=== PATIENT | male | born 1955 | race Caucasian/White ===

== ENCOUNTER 2020-02-26 18:40 | Outpatient (CLI) | payer BC, SELFPAY ==
--- NOTE | 2020-02-26 18:47 | XRR_ITS ---
PROCEDURE INFORMATION: Exam: XR Right Scapula Exam date and time: 02/26/2020 7:09 PM Age: 64 years old Clinical indication: Injury or trauma; Fall; Initial encounter; Blunt trauma (contusions or hematomas; Shoulder; Bilateral TECHNIQUE: Imaging protocol: XR Right scapula, complete. COMPARISON: CR Chest 1 [place] [id number] 08/26/2018 9:29 PM FINDINGS: Bones/joints: The bones are intact and in normal alignment. Mild degenerative changes of the right acromioclavicular joint. Soft tissues: Normal. XR/[place] [id number] IMPRESSION: No acute finding.
--- NOTE | 2020-02-26 18:47 | XRR_ITS ---
PROCEDURE INFORMATION: Exam: XR Cervical Spine, 2 or 3 Views Exam date and time: 02/26/2020 7:09 PM Age: 64 years old Clinical indication: Injury or trauma; Fall; Initial encounter; Sprain or strain, cervical ligaments; Prior surgery; Surgery date: 6+ months TECHNIQUE: Imaging protocol: XR of the cervical spine, 2 or 3 views. COMPARISON: CR Cervical Spine Flex/Ext [id number] 11/03/2018 8:37 AM FINDINGS: Vertebrae: Anterior mechanical fusion of C5-C7. The vertebral body stature is intact. The facets are intact with mild degenerative changes. Soft tissues: Unremarkable. Other findings: Bilateral carotid bulb calcifications. XR/XR cervical spine 3V* [id number] IMPRESSION: 1. No fracture or acute finding. 2. Anterior C5-7 fusion.
== END 2020-02-26 18:41 | disposition home or self-care (01) ==
LOC: RAD 18:43
PROVIDERS: Visit Provider Nurse Practitioner
DX: M25.511 Pain in right shoulder (principal); W19.XXXA Unspecified fall, initial encounter
CPT/HCPCS: 72040; 73010

== ENCOUNTER 2020-03-28 20:40 | Emergency (ER) | payer BC, SELFPAY ==
[2020-03-28 20:56] VITALS: BP 213/101; PULSE 65; RESP 14; TEMP 36.1; O2SAT 97; BMI 37.9
--- NOTE | 2020-03-28 22:39 | ED_ITS ---
HPI - General Adult General: Chief complaint: General Medical Stated complaint: bp issues Time Seen by Provider: 03/28/20 22:33 Source: patient Mode of arrival: ambulatory Limitations: no limitations History of Present Illness: HPI narrative: Patient presents today with uncontrolled blood pressure. Patient took his routine medication with minimal relief of his blood pressure. Patient appears well. Patient does report headache. Patient appears well. Patient appears in mild to no pain. Associated symptoms: Reports headache(s) Review of Systems General: Reports: 10 or more systems reviewed and unremarkable except in HPI and below Neuro: Reports: headache(s) PFSH ED PFSH: Medical History (Updated 03/28/20 @ 23:45 by EMILEE Avalos) BPH (benign prostatic hyperplasia) HTN (hypertension) Hypercholesteremia Varicose veins of both lower extremities Surgical History (Updated 12/28/19 @ 11:57 by Shira Reyes MD) S/P left knee arthroscopy Family History (Updated 12/28/19 @ 10:39 by Tosin Cunningham RN) Other CAD (coronary artery disease) Cancer Social History (Updated 12/28/19 @ 10:39 by Tosin Cunningham RN) Smoking and tobacco status: never smoked Alcohol intake: never Physical Exam Const: COMMON NORMALS: no acute distress and patient oriented x3 GENERAL APPEARANCE: cooperative HENMT: COMMON NORMALS: normocephalic, TM's normal bilaterally and Normal external nose present HEAD & SCALP: normal to inspection and normocephalic NOSE: Normal external nose present TYMPANIC MEMBRANE: TM's normal bilaterally MOUTH: Normal oral and palatal mucosa present THROAT: posterior oropharynx normal Eye: GENERAL EYE: appearance normal, both eyes and all related structures Neck/C-Spine: COMMON NORMALS: full ROM Lymph: LYMPHATIC: no lymphadenopathy noted Chest: COMMONS NORMALS: normal inspection of the chest Resp: COMMON NORMALS: normal respiratory effort EFFORT & INSPECTION: Yes able to speak in complete sentences Cardio: COMMON NORMALS: regular rate and regular rhythm RATE: regular rate RHYTHM: regular rhythm GI: COMMON NORMALS: non-tender Back/Pelvis: COMMON NORMALS: thoracic and lumbar spine normal to inspection Extremity: COMMON NORMALS: normal to inspection Neuro: COMMON NORMALS: patient oriented x3 and moves all extremities Psych: COMMON NORMALS: mental status grossly normal and cooperative Skin: COMMON NORMALS: no rashes or lesions noted GENERAL SKIN EXAM: no rashes or lesions noted Course Vital Signs: Vital signs: Vital Signs Temperature 97.0 F L 03/28/20 20:56 Pulse Rate 74 03/28/20 23:30 Respiratory Rate 18 03/28/20 23:30 Blood Pressure 165/90 03/28/20 23:53 Pulse Oximetry 93 03/28/20 23:30 MDM - General Adult MDM Narrative: Medical decision making narrative: Patient comes in today with concerns of high blood pressure. Patient reports a headache. Patient denies any other chest pain or difficulty breathing. Patient appears well. Blood pressure was elevated at 213 systolic on arrival to the ER. At rest and after being in the ER 2 to 3 hours at systolic came down to 165 without intervention. Vitals signs were otherwise normal. Differential diagnosis includes but not limited to hypertension, intracranial process, electrolyte disturbance. CT of the head noted no intracranial bleed or infarct abnormality. Laboratory values were unremarkable except for some mild decrease in potassium at 3.6. Patient was given 20 meq of potassium x1. We will place patient on 0.1 mg of clonidine at bedtime for the next 2 weeks. Patient will monitor his blood pressure. Patient will follow-up with his primary care for further treatment and evaluation. Lab Data: Labs: Lab Results 03/28/20 03/28/20 Range/Units 22:30 22:30 WBC 8.2 (4.0-10.0) 10^3/ uL RBC 4.53 (4.1-5.3) 10^6/u L Hgb 13.5 (11.7-16.6) g/dL Hct 40.7 L (42.0-52.0) % MCV 89.8 (80-94) fL MCH 29.8 (28.0-34.0) pg MCHC 33.2 (30.0-36.0) g/dL RDW 12.5 (12.1-15.1) % Plt Count 192 (130-400) 10^3/c mm MPV 11.0 H (7.4-10.4) fL Neut % (Auto) 63.8 % Lymph % (Auto) 22.7 % Nance % (Auto) 9.1 % Eos % (Auto) 3.3 % Baso % (Auto) 0.6 % Neut # (Auto) 5.25 (1.8-7.7) 10^3/u L Lymph # (Auto) 1.9 (0.8-4.8) 10^3/u L Nance # (Auto) 0.8 (0.2-0.9) 10^3/u L Eos # (Auto) 0.3 (0.0-0.8) 10^3/u L Baso # (Auto) 0.1 (0.0-0.1) 10^3/u L Nucleated RBC % (a uto) 0 % Nucleated RBCs # 0.0 /100WBC Sodium 141 (136-145) mmol/L Potassium 3.6 (3.5-5.1) mmol/L Chloride 106 (98-107) mmol/L Carbon Dioxide 27 (22-29) mmol/L Anion Gap 11.6 (5-19) BUN 19 (8-23) mg/dL Creatinine 1.0 (0.7-1.2) mg/dL GFR Calculation 75.5 L (90-130) mL/min Glucose 151 H (65-115) mg/dL Calculated Osmolal ity 297 H (285-295) mOsm/k g Calcium 9.1 (8.5-10.5) mg/dL Total Bilirubin 0.3 (0.15-1.2) mg/dL AST 14 (0-40) U/L ALT 15 (0-41) U/L Alkaline Phosphata se 45 (40-130) IU/L Total Protein 6.2 L (6.6-8.7) g/dL Albumin 4.0 (3.5-5.2) g/dL Globulin 2.2 (1.3-4.6) g/dL Discharge Plan Discharge Patient Disposition: Home Clinical Impression: HTN (hypertension) Qualifiers: Hypertension type: unspecified Qualified Code(s): I10 - Essential (primary) hypertension Headache Qualifiers: Headache type: unspecified Headache chronicity pattern: unspecified pattern Intractability: not intractable Qualified Code(s): R51 - Headache Condition: Stable Prescriptions: New clonidine HCl 0.1 mg tablet 0.1 mg PO DAILY Qty: 14 RF: 0 No Action aspirin [Aspir-81] 81 mg tablet,delayed release (DR/EC) 81 mg PO DAILY RF: 0 carvedilol 25 mg tablet 12.5 mg PO BID RF: 0 furosemide 20 mg tablet 20 mg PO DAILY RF: 0 losartan 100 mg tablet 100 mg PO DAILY RF: 0 melatonin 10 mg capsule 10 mg PO DAILY RF: 0 metaxalone 800 mg tablet 800 mg PO TID RF: 0 tamsulosin 0.4 mg capsule 0.4 mg PO DAILY RF: 0 trazodone 150 mg tablet 150 mg PO DAILY RF: 0 amlodipine 10 mg tablet 10 mg PO DAILY Qty: 90 RF: 3 Discharge Orders: Discharge Order (Routine); Ordered 03/28/20 Ordered By: Ari Gillespie Referrals: Carlos Reddy NP [Primary Care Provider] - Discharge Diet: Usual diet Discharge Activity: Increase activity as tolerated Patient Instructions: Hypokalemia (ED) Activity Restrictions/Additional Instructions: Drink plenty of fluids. Continue routine medications as directed. Take clonidine at bedtime to assist with blood pressure. Follow-up with primary care for further instructions and recommendations for blood pressure control. Return to the emergency department for new concerns. 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
--- NOTE | 2020-03-28 22:39 | CTR_ITS ---
PROCEDURE INFORMATION: Exam: CT Head Without Contrast Exam date and time: 03/28/2020 10:40 PM Age: 64 years old Clinical indication: Pain; Headache; Additional info: Headache, R/O bleed TECHNIQUE: Imaging protocol: Computed tomography of the head without contrast. Radiation optimization: All CT scans at this facility use at least one of these dose optimization techniques: automated exposure control; mA and/or kV adjustment per patient size (includes targeted exams where dose is matched to clinical indication); or iterative reconstruction. COMPARISON: No relevant prior studies available. RADIATION DOSE METRICS: Total DLP (mGy-cm): 872.49 FINDINGS: Brain: Normal. No hemorrhage. Unremarkable white matter. No mass effect. Cerebral ventricles: No ventriculomegaly. Bones/joints: No acute findings. Paranasal sinuses: Visualized sinuses are unremarkable. No fluid levels. Mastoid air cells: Visualized mastoid air cells are well aerated. Soft tissues: Unremarkable. CT/CT head wo con* [id number] IMPRESSION: No acute intracranial abnormality. Radiation Dose CTDIVOL = (mGy): DLP = 872.49 (mGy-cm)
[2020-03-28 22:41] VITALS: BP 171/83; PULSE 63; RESP 18; O2SAT 96
[2020-03-28 22:53] LABS: Basophils # 0.1 10^3/uL (0.0-0.1); Basophils % 0.6 %; Eosinophils # 0.3 10^3/uL (0.0-0.8); Eosinophils % 3.3 %; Hematocrit 40.7 % (42.0-52.0); Hemoglobin 13.5 g/dL (11.7-16.6); Lymphocytes # 1.9 10^3/uL (0.8-4.8); Lymphocytes % 22.7 %; Mean Corpuscular HGB Conc 33.2 g/dL (30.0-36.0); Mean Corpuscular Hemoglobin 29.8 pg (28.0-34.0); Mean Corpuscular Volume 89.8 fL (80-94); Monocytes # 0.8 10^3/uL (0.2-0.9); Monocytes % 9.1 %; Neutrophils # 5.25 10^3/uL (1.8-7.7); Neutrophils % 63.8 %; Nucleated Red Blood Cells % 0 %; Platelet Count 192 10^3/cmm (130-400); Red Blood Count 4.53 10^6/uL (4.1-5.3); Red Cell Distribution Width 12.5 % (12.1-15.1); White Blood Count 8.2 10^3/uL (4.0-10.0)
[2020-03-28 23:00] VITALS: BP 147/78; PULSE 63; RESP 17; O2SAT 95
[2020-03-28 23:14] LABS: Alanine Aminotransferase 15 U/L (0-41); Alkaline Phosphatase 45 IU/L (40-130); Anion Gap 11.6 (5-19); Aspartate Amino Transferase 14 U/L (0-40); Blood Urea Nitrogen 19 mg/dL (8-23); Calcium 9.1 mg/dL (8.5-10.5); Carbon Dioxide 27 mmol/L (22-29); Chloride 106 mmol/L (98-107); Globulin 2.2 g/dL (1.3-4.6); Glomerular Filtration Rate 75.5 mL/min (90-130); Glucose 151 mg/dL (65-115); Osmolality Calculated 297 mOsm/kg (285-295); Potassium 3.6 mmol/L (3.5-5.1); Sodium 141 mmol/L (136-145); Total Bilirubin 0.3 mg/dL (0.15-1.2); Total Protein 6.2 g/dL (6.6-8.7)
[2020-03-28 23:30] VITALS: BP 161/91; PULSE 74; RESP 18; O2SAT 93
[2020-03-28 23:53] VITALS: BP 165/90
[2020-03-28] MEDS: cloNIDine 0.1 mg Tablet PO (23:53)
[2020-03-28] MEDS: potassium chloride ER 10 mEq Tablet 20 MEQ PO (23:54)
[2020-03-29] VITALS: BP 165/90; PULSE 61; RESP 17; TEMP 36.1; O2SAT 92
== END 2020-03-29 | disposition home or self-care (01) ==
PROVIDERS: Emergency Provider Nurse Practitioner Family; PCP Nurse Practitioner Family
DX: I10 Essential (primary) hypertension (principal); R51 Headache; Z79.82 Long term (current) use of aspirin
CPT/HCPCS: 12345; 70450; 80053; 85025; 99283

== ENCOUNTER → 2020-10-10 08:17 | Outpatient (BNVA) | payer BC, SELFPAY | PROVIDERS: PCP Nurse Practitioner Family; Referring Provider Nurse Practitioner Family; Visit Provider Specialist | DX: M25.552 Pain in left hip (principal); M25.551 Pain in right hip | CPT/HCPCS: 73522; 73523 ==

== ENCOUNTER → 2020-10-25 08:49 | Outpatient (BNVA) | payer BC, SELFPAY | PROVIDERS: PCP Nurse Practitioner Family; Visit Provider Orthopaedic Surgery | DX: M54.9 Dorsalgia, unspecified (principal); M43.16 Spondylolisthesis, lumbar region; M48.062 Spinal stenosis, lumbar region with neurogenic claudication | CPT/HCPCS: 72110 ==

== ENCOUNTER 2020-11-14 13:09 | Outpatient (CLI) | payer BC, SELFPAY ==
--- NOTE | 2020-11-14 13:45 | MR_ITS ---
WS: [id number] MRI LUMBAR SPINE NONCONTRAST TECHNIQUE: Sagittal T1, T2 and STIR imaging. Axial T1 and T2 imaging. CLINICAL INFORMATION: M43.16 - Spondylolisthesis, lumbar region COMPARISON: None. FINDINGS: Mild lumbar curve. No acute compression. Chronic anterior wedging in the lower thoracic spine. L1-L2: Slight narrowing of the right subarticular recess. Mild facet arthropathy. Spinal canal and fo ramen are patent. L2-L3: No significant disc bulging. Moderate facet arthropathy. Spinal canal and foramen are patent. L3-L4: Mild annular bulging. Slight effacement of ventral thecal sac. Slight narrowing of the right s ubarticular recess. Foramen are patent. Mild facet arthropathy. L4-L5: Mild annular bulging with mild central canal stenosis. Moderate facet arthropathy and ligament um flavum hypertrophy. Slight narrowing of the subarticular recess bilaterally. Mild bilateral forami nal narrowing. L5-S1: Mild disc bulging with osteophytic ridging. Slight effacement of ventral thecal sac. Moderate to advanced arthropathy. Spinal canal and foramen are patent. Visualized pelvic bony structures: Normal. Paravertebral soft tissues: Normal. MR/MR lumbar spine wo con* [id number] IMPRESSION: 1. Mild lumbar curve. No acute compression. No high-grade central canal stenos is. 2. Mild central canal stenosis L4-5 due to disc bulging with facet arthropathy and ligamentum flavum hypertrophy. Narrowing of the subarticular recess bilate rally. 3. Mild bilateral L4-5 foraminal narrowing. 4. Moderate facet arthropathy L4-L5 and L5-S1.
== END 2020-11-14 13:10 | disposition home or self-care (01) ==
PROVIDERS: PCP Nurse Practitioner Family; Visit Provider Orthopaedic Surgery
DX: M43.16 Spondylolisthesis, lumbar region (principal); M48.061 Spinal stenosis, lumbar region without neurogenic claudication; M47.816 Spondylosis without myelopathy or radiculopathy, lumbar region; M47.817 Spondylosis without myelopathy or radiculopathy, lumbosacral region
CPT/HCPCS: 72148

== ENCOUNTER → 2020-11-23 08:14 | Outpatient (BNVA) | payer BC, SELFPAY | PROVIDERS: PCP Nurse Practitioner Family; Visit Provider Anesthesiology Pain Medicine | DX: M48.062 Spinal stenosis, lumbar region with neurogenic claudication (principal); Z79.891 Long term (current) use of opiate analgesic | CPT/HCPCS: 99204 ==

== ENCOUNTER 2020-11-27 10:19 | Emergency (ER) | payer BC, SELFPAY ==
[2020-11-27 10:35] VITALS: BP 137/69; PULSE 65; RESP 14; TEMP 36.8; O2SAT 96; BMI 38.7
--- NOTE | 2020-11-27 10:50 | CTR_ITS ---
PROCEDURE INFORMATION: Exam: CT Neck With Contrast Exam date and time: 11/27/2020 11:15 AM Age: 65 years old Clinical indication: Neck pain and painful swallowing; Additional info: Right neck pain and swelling, difficulty swallowing TECHNIQUE: Imaging protocol: Computed tomography images of the neck with contrast. Radiation optimization: All CT scans at this facility use at least one of these dose optimization techniques: automated exposure control; mA and/or kV adjustment per patient size (includes targeted exams where dose is matched to clinical indication); or iterative reconstruction. Contrast material: OMNIPAQUE 300; Contrast volume: 95 ml; Contrast route: INTRAVENOUS (IV); COMPARISON: MRI Cervical Spine w/o* [id number] 11/03/2018 7:59 AM RADIATION DOSE METRICS: Total DLP (mGy-cm): 579.08 FINDINGS: Nasopharynx: Unremarkable. Dental: Examination is limited secondary to metallic artifact from dental fillings and/or dental hardware. Oropharynx: Unremarkable. No significant tonsillar enlargement. Hypopharynx: Unremarkable. Larynx: Unremarkable. Normal epiglottis. Retropharyngeal space: Unremarkable. Submandibular/Parotid glands: Normal. Glands are normal in size. Thyroid: 2.3 cm isthmus thyroid nodule with recommendation for nonemergent thyroid ultrasound to rule out neoplasm. Lymph nodes: Unremarkable. No lymphadenopathy. Trachea: Visualized trachea is unremarkable. Lungs: Unremarkable as visualized. Bones/joints: Interval removal of the central portion of the C6 vertebral body with placement of metallic stent in addition to anterior metallic fixation of C5, C6 and C7. Vasculature: There is direct origin of the left vertebral artery from the aortic arch which is a normal variant seen in 1% of the population. Soft tissues: Unremarkable. No significant soft tissue swelling. Other findings: Dextroscoliosis. CT/CT neck w con* [id number] IMPRESSION: 1. Dextroscoliosis. 2. Interval removal of the central portion of the C6 vertebral body with placement of metallic stent in addition to anterior metallic fixation of C5, C6 and C7. 3. 2.3 cm isthmus thyroid nodule with recommendation for nonemergent thyroid ultrasound to rule out neoplasm. COMMENTS: Consistent with the [employer]'s Incidental Findings Committee white paper (J Am Keon Radiol 2015): In patients aged 35 years and older with an incidental thyroid nodule equal to or greater than 1.[address], MRI or extrathyroidal US, further evaluation with dedicated thyroid US is recommended for patients with normal life expectancy and without comorbidities. For smaller nodules without suspicious features, no further evaluation or follow up is recommended. Radiation Dose CTDIVOL = (mGy): DLP = 579.08 (mGy-cm)
--- NOTE | 2020-11-27 11:07 | ED_ITS ---
HPI - General Adult General: Chief complaint: General Medical Stated complaint: trouble swallowing *3 weeks Time Seen by Provider: 11/27/20 10:39 History of Present Illness: HPI narrative: Patient with difficulty swallowing and right-sided neck pain that has been chronic for several months but worsening over the past 3 weeks. States it feels like sometimes he is able to swallow his food but it is all up in his neck, and always on the right side. Associated symptoms: Deny chest pain, dyspnea, headache(s) or rash Review of Systems Const: Denies: fever(s) Eyes: Denies: change in vision ENMT: Reports: throat pain and odynophagia Card: Denies: chest pain Resp: Denies: dyspnea GI: Reports: dysphagia; Denies: abdominal pain : Denies: flank pain Musc: Reports: neck pain (Right-sided anterior neck pain but only with swallowing) Skin/Breast: Denies: rash Neuro: Denies: headache(s) Psych: Denies: anxiety PFSH ED PFSH: Medical History BPH (benign prostatic hyperplasia) HTN (hypertension) Hypercholesteremia Varicose veins of both lower extremities Surgical History S/P left knee arthroscopy Family History Other CAD (coronary artery disease) Cancer Social History Smoking and tobacco status: never smoked Alcohol intake: never Physical Exam HENMT: COMMON NORMALS: normocephalic and Normal external nose present HEAD & SCALP: normal to inspection and normocephalic FACE & SINUS: normal facial exam NOSE: Normal external nose present MOUTH: Normal oral and palatal mucosa present, lip normal and tongue normal THROAT: posterior oropharynx normal, tonsils normal and uvula midline Neck/C-Spine: COMMON NORMALS: full ROM, no lymphadenopathy, no meningeal signs and No carotid bruits GENERAL: Yes normal visual inspection Neuro: MENINGEAL SIGNS: Yes no meningeal signs Course Vital Signs: Vital signs: Vital Signs Temperature 98.2 F 11/27/20 10:35 Pulse Rate 60 11/27/20 11:44 Respiratory Rate 14 11/27/20 10:35 Blood Pressure 121/65 11/27/20 11:44 Pulse Oximetry 94 11/27/20 11:44 MDM - General Adult MDM Narrative: Medical decision making narrative: Patient with a large thyroid mass or nodule. Will have patient follow-up with ENT for further evaluation and treatment. Lab Data: Labs: Lab Results 11/27/20 11/27/20 Range/Units 11:25 11:25 WBC 7.3 (4.0-10.0) 10^3/ uL RBC 4.64 (4.1-5.3) 10^6/u L Hgb 14.0 (11.7-16.6) g/dL Hct 41.8 L (42.0-52.0) % MCV 90.1 (80-94) fL MCH 30.2 (28.0-34.0) pg MCHC 33.5 (30.0-36.0) g/dL RDW 12.3 (12.1-15.1) % Plt Count 183 (130-400) 10^3/c mm MPV 11.1 H (7.4-10.4) fL Neut % (Auto) 68.7 % Lymph % (Auto) 18.8 % Giles % (Auto) 7.0 % Eos % (Auto) 4.0 % Baso % (Auto) 0.8 % Neut # (Auto) 5.02 (1.8-7.7) 10^3/u L Lymph # (Auto) 1.4 (0.8-4.8) 10^3/u L Giles # (Auto) 0.5 (0.2-0.9) 10^3/u L Eos # (Auto) 0.3 (0.0-0.8) 10^3/u L Baso # (Auto) 0.1 (0.0-0.1) 10^3/u L Nucleated RBC % (a uto) 0 % Nucleated RBCs # 0.0 /100WBC Sodium 141 (136-145) mmol/L Potassium 3.8 (3.5-5.1) mmol/L Chloride 106 (98-107) mmol/L Carbon Dioxide 27 (22-29) mmol/L Anion Gap 11.8 (5-19) BUN 17 (8-23) mg/dL Creatinine 0.9 (0.7-1.2) mg/dL GFR Calculation 85.0 L (90-130) mL/min Glucose 124 H (65-115) mg/dL Calculated Osmolal ity 295 (285-295) mOsm/k g Calcium 8.4 L (8.5-10.5) mg/dL Discharge Plan Discharge Condition: Stable Prescriptions: No Action tramadol 50 mg tablet 50 mg PO DAILY RF: 0 buspirone 15 mg tablet 15 mg PO BID RF: 0 clonidine HCl 0.2 mg tablet 0.2 mg PO BID RF: 0 oxycodone-acetaminophen 5-325 mg tablet 1 tab PO Q8H PRNRF: 0 aspirin [Aspir-81] 81 mg tablet,delayed release (DR/EC) 81 mg PO DAILY RF: 0 carvedilol 25 mg tablet 12.5 mg PO BID RF: 0 furosemide 20 mg tablet 20 mg PO DAILY RF: 0 losartan 100 mg tablet 100 mg PO DAILY RF: 0 melatonin 10 mg capsule 10 mg PO DAILY RF: 0 tamsulosin 0.4 mg capsule 0.4 mg PO DAILY RF: 0 trazodone 150 mg tablet 150 mg PO DAILY RF: 0 potassium chloride 10 mEq capsule, extended release 10 meq PO DAILY RF: 0 ropinirole 2 mg tablet 2 mg PO DAILY RF: 0 cyclobenzaprine 10 mg tablet 10 mg PO TID RF: 0 amlodipine 10 mg tablet 10 mg PO DAILY Qty: 90 RF: 3 clonidine HCl 0.1 mg tablet 0.1 mg PO DAILY Qty: 14 RF: 0 Discharge Orders: Discharge ED (Routine); Ordered 11/27/20 Ordered By: Hugh Jones Referrals: Benigno Goldberg MD [Physician] - 4-7 days Carlos Reddy NP [Primary Care Provider] - Discharge Diet: Advance as tolerated Discharge Activity: Resume usual activity Activity Restrictions/Additional Instructions: Follow-up with ENT for further evaluation of thyroid mass Coding Level of Care Code ED Head Turning 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
[2020-11-27 11:34] LABS: Basophils # 0.1 10^3/uL (0.0-0.1); Basophils % 0.8 %; Eosinophils # 0.3 10^3/uL (0.0-0.8); Hematocrit 41.8 % (42.0-52.0); Lymphocytes # 1.4 10^3/uL (0.8-4.8); Lymphocytes % 18.8 %; Mean Corpuscular HGB Conc 33.5 g/dL (30.0-36.0); Mean Corpuscular Hemoglobin 30.2 pg (28.0-34.0); Mean Corpuscular Volume 90.1 fL (80-94); Mean Platelet Volume 11.1 fL (7.4-10.4); Monocytes # 0.5 10^3/uL (0.2-0.9); Neutrophils # 5.02 10^3/uL (1.8-7.7); Neutrophils % 68.7 %; Nucleated Red Blood Cells % 0 %; Platelet Count 183 10^3/cmm (130-400); Red Blood Count 4.64 10^6/uL (4.1-5.3); Red Cell Distribution Width 12.3 % (12.1-15.1); White Blood Count 7.3 10^3/uL (4.0-10.0)
[2020-11-27 11:44] VITALS: BP 121/65; PULSE 60; O2SAT 94
[2020-11-27 11:55] LABS: Anion Gap 11.8 (5-19); Blood Urea Nitrogen 17 mg/dL (8-23); Calcium 8.4 mg/dL (8.5-10.5); Carbon Dioxide 27 mmol/L (22-29); Chloride 106 mmol/L (98-107); Glucose 124 mg/dL (65-115); Osmolality Calculated 295 mOsm/kg (285-295); Potassium 3.8 mmol/L (3.5-5.1); Sodium 141 mmol/L (136-145)
[2020-11-27] MEDS: iohexol 300 mg/mL 100 mL Btl IV (12:20)
[2020-11-27 13:56] VITALS: BP 124/84; PULSE 61; O2SAT 97
[2020-11-27 15:00] VITALS: BP 148/80; PULSE 66; RESP 18; O2SAT 99
== END 2020-11-27 15:02 | disposition home or self-care (01) ==
PROVIDERS: Emergency Provider Emergency Medicine; PCP Nurse Practitioner Family
DX: R13.10 Dysphagia, unspecified (principal); Z79.82 Long term (current) use of aspirin; I10 Essential (primary) hypertension
CPT/HCPCS: 70491; 80048; 85025; 99283; Q9967

== ENCOUNTER → 2020-11-30 13:03 | Outpatient (BNVA) | payer BC, SELFPAY | PROVIDERS: PCP Nurse Practitioner Family; Visit Provider Anesthesiology Pain Medicine | DX: M47.816 Spondylosis without myelopathy or radiculopathy, lumbar region (principal); M48.062 Spinal stenosis, lumbar region with neurogenic claudication; Z79.891 Long term (current) use of opiate analgesic | CPT/HCPCS: 64493; 64494; 64495; J3490 ==

== ENCOUNTER 2020-12-06 15:49 | Outpatient (CLI) | payer BC, SELFPAY ==
[2020-12-06 16:42] LABS: Free T4 Free Thyroxine 1.09 ng/dL (0.82-1.77); Thyroid Stimulating Hormone 2.78 uIU/mL (0.27-4.20)
== END 2020-12-06 15:50 | disposition home or self-care (01) ==
PROVIDERS: PCP Nurse Practitioner Family; Visit Provider Specialist
DX: E04.1 Nontoxic single thyroid nodule (principal)
CPT/HCPCS: 84439; 84443

== ENCOUNTER 2020-12-16 09:14 | Outpatient (CLI) | payer BC, SELFPAY ==
--- NOTE | 2020-12-16 09:21 | FL_ITS ---
WS: [id number] Exam: FL barium swallow [id number] Date/Time of Exam: 12/16/2020 9:21 AM Reason For Exam: DYSPHAGIA Fluoroscopy time: 1.2 minutes Swallowing function was normal. There was no sign of aspiration. The esophagus is smooth in contour. No evidence of esophageal stricture or mass. Motility was normal. No hiatal hernia or gastroesophagea l reflux identified during fluoroscopy. The esophagus is not displaced. FL/FL barium swallow [id number] IMPRESSION: 1. Unremarkable barium esophagram. No mass, stricture or other significant find ing.
== END 2020-12-16 09:15 | disposition home or self-care (01) ==
LOC: RAD 09:17
PROVIDERS: PCP Nurse Practitioner Family; Visit Provider Specialist
DX: E04.1 Nontoxic single thyroid nodule (principal); R13.10 Dysphagia, unspecified
CPT/HCPCS: 74220

== ENCOUNTER → 2020-12-26 15:50 | Outpatient (BNVA) | payer BC, SELFPAY | PROVIDERS: PCP Nurse Practitioner Family; Visit Provider Orthopaedic Surgery | DX: Z01.818 Encounter for other preprocedural examination (principal) | CPT/HCPCS: 87635 ==

== ENCOUNTER 2020-12-30 11:24 | Day surgery (SDC) | payer BC, SELFPAY ==
[2020-12-29 15:15] VITALS: BMI 40.1
--- NOTE | 2020-12-30 | SCC_ITS ---
Procedure Done: Laminectomy with bilateral L4/5 partial facetectomies 10.6 seconds of fluoroscopic guidance, for a cumulative dose of 5.96 mGy, was provided to Dr. Lowery by the radiology department. C-arm images of the lumbar spine were saved for the patient's permanent record. MARY
[2020-12-30 12:16] VITALS: BP 154/79; PULSE 60; RESP 18; TEMP 36.4; O2SAT 100
[2020-12-30] MEDS: sodium chloride 0.9% 1,000 ML 30 ML IV (13:30)
--- NOTE | 2020-12-30 15:21 | ANES.PREANE2 ---
Pre-Anesthetic Assessment Pre-Anesthetic Assessment: Height/Weight: Height 1.78 m Weight 127.006 kg Temp Pulse Resp BP Pulse Ox 97.5 F L 60 18 154/79 100 12/30/20 12:16 12/30/20 12:16 12/30/20 12:16 12/30/20 12:16 12/30/20 12:16 Preop Diagnosis: lumbar stenosis Proposed Procedure: Operation Date: 12/30/20 13:20 Proposed Procedures p right L 4/5 MIS decompression [id number] M48.062(Right) - Manny Lowery, DO Was Beta Esme taken within 24 hours: Yes Was Clonidine taken within 24 hours: N/A Last intake: Intake Last Liquid Date 12/29/20 Last Liquid Time 22:00 Last Solid Date 12/29/20 Last Solid Time 22:00 Social: Social History: No alcohol and No tobacco Exam: Pre-Anes Outpt Exam: alert, oriented x 3, clear to auscultation bilaterally and regular rate & rhythm Airway: Submandibular: WNL Cervical ROM: WNL MP: 2 Dentition: Partials CV/HEM: CV/HEM: HTN Metabolic: Metabolic: Hyperlipidemia and Morbid obesity Musc/skel: Musc/skel: Lower Back Pain Anesthetic Plan: ASA status: 3 Anesthesia: General Risk of > 500 ml blood loss (7ml/kg in children): No PFSH Anesthesia PFSH: Medical History BPH (benign prostatic hyperplasia) HTN (hypertension) Hypercholesteremia Varicose veins of both lower extremities Surgical History S/P left knee arthroscopy Family History Other CAD (coronary artery disease) Cancer Social History Smoking and tobacco status: never smoked Alcohol intake: never Data Anesthesia Cardiac Studies: No Data to Display
--- NOTE | 2020-12-30 15:56 | W.PM.OPSUD ---
Surgery/Procedure H&P Update DATE OF PROCEDURE: December 30, 2020 DATE H&P PERFORMED: 12/13/20 H&P UPDATE INFORMATION: I have reviewed H&P completed within last 30 days, I have examined patient prior to procedure and No changes to prior documentation PREOP DIAGNOSIS: lumbar stenosis PLANNED PROCEDURE: Operation Date: 12/30/20 13:20 Proposed Procedures p right L 4/5 MIS decompression 30843 M48.062(Right) - Manny Lowery DO
--- NOTE | 2020-12-30 18:04 | P.OP_ITS ---
Operative Report Date of procedure: December 30, 2020 Pre-op Diagnosis: lumbar stenosis Post-op diagnosis: same Procedure Done: Laminectomy with bilateral L4/5 partial facetectomies Surgeon: Manny Lowery Anesthesia: General Estimated blood loss (mL): 10 Condition: stable Disposition: PACU Procedure: Laminectomy with bilateral L4/5 partial facetectomies Patient is brought to the operative suite. After undergoing anesthesia they are placed in the supine position. All areas of impingement are well padded. Patient is then prepped and draped in the normal sterile fashion. A skin incision is made over the L4/5 level. This is confirmed under c-arm guidance. A series of dilators are passed and the tubular retractor is docked on the L4 lamina. A bovie is used to clear the soft tissue off the lamina and the L 4/5 facet joint. A high speed maranda is then used to perform the laminectomy and take down the medial aspect of the L 4/5 facet joint. A kerrison rongeure was then used to take down the remaining lamina and smooth the edged of the laminectomy up to the point where the ligamentum flavum attaches. Attention was then brought to the medial aspect of the facet joint. The remaining medial aspect of the superior and inferior aspect of the facet joint were taken down with the kerrison from the pedicle of L4 to L 5. The facet joint had significant hypertrophy. Attention was then brought to the Ligamentum Flavum. The ligament was taken down from the lamina of L4 to L5 and out medially to the remaining facet joint. The ligament was thickened. The dura was then exposed. The dura was in good repair. The L4 nerve was then traced with a curette out the L4/5 foramen and found to be adequately decompressed. The L5 nerve was traced with a curette around the L5 pedicle. The lateral recess was opened with a kerrison helping to further decompress the L5 nerve. The tubular retractor was then tilted to the contralateral side. The bovie was used to take down the soft tissue on the spinous process. The high speed maranda was used to take down the spinous process and then the contralateral lamina of L4. The kerrison rongeur was used to take down the remaining lamina to the point where the ligamentum flavum attached and the ligamentum flavum was taken d own from L4 to L5. The kerrison rongeur was then used to reach across and take down the medial aspect of the contralateral L4/5 facet joint.The currete was used to trace the contralateral L4/5 nerve out the L4 foramen to make sure it was decompressed adequatesly and the L5 was traced around the L5 pedicle. The lateral recess was opened further with the kerrison to ensure the L5 is adequately decompressed. Wound is then irrigated copiously with saline and surgiflo is used to stop any bleeding. The tubular retractor is removed and the wound is closed with vicryl and monocryl suture. Glue is then used to protect the wound. A sterile dressing is then placed. Patient was then placed in the supine position and transferred to the PACU in stable condition.
--- NOTE | 2020-12-30 18:06 | XR_ITS ---
WS: [id number] C-ARM RADIOGRAPHS LUMBAR SPINE; 2 IMAGES HISTORY: OR PICS COMPARISON: 10/25/2020 Intraoperative imaging for posterior fusion. Marker indicator at the L4-5 disc level. XR/XR lumbar spine 1V [id number] IMPRESSION: Intraoperative imaging during posterior lumbar fusion.
[2020-12-30 18:16] VITALS: BP 123/75; PULSE 61; RESP 20; TEMP 36.4; O2SAT 99
[2020-12-30 18:20] VITALS: BP 156/77; PULSE 59; RESP 16; O2SAT 97
[2020-12-30 18:25] VITALS: BP 154/81; PULSE 62; RESP 18; TEMP 36.5; O2SAT 96
[2020-12-30 18:30] VITALS: BP 147/74; PULSE 56; RESP 18; TEMP 36.1; O2SAT 98
[2020-12-30 18:59] VITALS: BP 159/80; PULSE 59; RESP 18; O2SAT 98
--- NOTE | 2020-12-31 02:24 | ANE.PACU2 ---
Inpatient post-anesthesia follow up: Airway intact: Yes Vital signs: Temperature 97 F Pulse Rate 59 Respiratory Rate 18 Blood Pressure 159/80 Pulse Oximetry 98 Oxygen Delivery Me thod Room Air Oxygen Flow Rate 8 Fraction of Inspir ed Oxygen Hydration adequate: Yes Nausea and vomiting: No Pain level: 3 Mental status: Baseline
== END 2020-12-30 19:05 | disposition home or self-care (01) ==
PROVIDERS: PCP Nurse Practitioner Family; Visit Provider Orthopaedic Surgery
PROC: (CPT 63005; principal; 2020-12-30 13:10)
DX: M48.061 Spinal stenosis, lumbar region without neurogenic claudication (principal); I10 Essential (primary) hypertension; E78.5 Hyperlipidemia, unspecified; E66.01 Morbid (severe) obesity due to excess calories; Z68.41 Body mass index [BMI] 40.0-44.9, adult; N40.0 Benign prostatic hyperplasia without lower urinary tract symptoms; E78.00 Pure hypercholesterolemia, unspecified
CPT/HCPCS: 63047; 72020; 76000; J0690; J1100; J2405; J2704; J2710; J3010; J3490; J7030

== ENCOUNTER → 2021-01-26 16:07 | Outpatient (BNVA) | payer BC, SELFPAY | PROVIDERS: PCP Nurse Practitioner Family; Visit Provider Specialist | DX: Z01.812 Encounter for preprocedural laboratory examination (principal); Z20.822 Contact with and (suspected) exposure to COVID-19 | CPT/HCPCS: 87635 ==

== ENCOUNTER 2021-02-03 16:37 | Observation (INO) | payer BC, SELFPAY ==
[2021-02-02 14:27] VITALS: BMI 39.4
[2021-02-03] VITALS (29 sets, daily range): BP systolic 146–193; BP diastolic 74–118; PULSE 53–83; RESP 8–30; TEMP 36.2–37.2; O2SAT 93–100
--- NOTE | 2021-02-03 10:47 | ANES.PREANE2 ---
Pre-Anesthetic Assessment Pre-Anesthetic Assessment: Height/Weight: Height 1.78 m Weight 124.738 kg Temp Pulse Resp BP Pulse Ox 99 F 65 18 177/81 98 02/03/21 10:15 02/03/21 10:15 02/03/21 10:15 02/03/21 10:15 02/03/21 10:15 Preop Diagnosis: lumbar stenosis Proposed Procedure: Operation Date: 02/03/21 11:00 Proposed Procedures p Partial or Total Thyroidectomy 27267 52501 58486 E04.1(Not Applicable) - Benigno Goldberg MD Familial anesthetic complications: None Was Beta Esme taken within 24 hours: Yes Was Clonidine taken within 24 hours: N/A Last intake: Intake Last Liquid Date 02/02/21 Last Liquid Time 18:30 Last Solid Date 02/02/21 Last Solid Time 18:00 Social: Social History: No alcohol and No tobacco Exam: Pre-Anes Outpt Exam: alert, oriented x 3, clear to auscultation bilaterally and regular rate & rhythm Airway: Cervical ROM: WNL MP: 2 Dentition: Partials Pulmonary: Pulmonary: Sleep apnea CV/HEM: CV/HEM: HTN Metabolic: Metabolic: Hyperlipidemia and Morbid obesity Anesthetic Plan: ASA status: 3 Anesthesia: General Risk of > 500 ml blood loss (7ml/kg in children): No PFSH Anesthesia PFSH: Medical History BPH (benign prostatic hyperplasia) HTN (hypertension) Hypercholesteremia Varicose veins of both lower extremities Surgical History S/P left knee arthroscopy Family History Other CAD (coronary artery disease) Cancer Social History Smoking and tobacco status: never smoked Alcohol intake: never Data Anesthesia CBC & Chem 7: 02/03/21 10:35 Cardiac Studies: No Data to Display
[2021-02-03] MEDS: sodium chloride 0.9% 1,000 ML 30 ML IV (10:48)
--- NOTE | 2021-02-03 10:59 | W.PM.OPSUD ---
Surgery/Procedure H&P Update DATE OF PROCEDURE: February 03, 2021 DATE H&P PERFORMED: 01/09/21 H&P UPDATE INFORMATION: I have reviewed H&P completed within last 30 days, I have examined patient prior to procedure and No changes to prior documentation PREOP DIAGNOSIS: Thyroid Nodule with suspicious FNA biopsy PLANNED PROCEDURE: Operation Date: 02/03/21 11:00 Proposed Procedures p Partial or Total Thyroidectomy 21044 38660 46873 E04.1(Not Applicable) - Benigno Goldberg MD
[2021-02-03 11:10] LABS: Anion Gap 11.8 (5-19); Blood Urea Nitrogen 12 mg/dL (8-23); Calcium 8.5 mg/dL (8.5-10.5); Carbon Dioxide 25 mmol/L (22-29); Chloride 107 mmol/L (98-107); Glucose 90 mg/dL (65-115); Osmolality Calculated 289 mOsm/kg (285-295); Potassium 3.8 mmol/L (3.5-5.1); Sodium 140 mmol/L (136-145)
[2021-02-03] MEDS: ceFAZolin 1,000 mg SDV 1000 MG IRRIGATION (12:14)
[2021-02-03] MEDS: EPINEPHrine 1 mg/mL INJ XX (12:14)
[2021-02-03] MEDS: fluorescein 1 mg Strip XX (12:16)
[2021-02-03] MEDS: neomycin-poly-bacitracin oint 28 gm 28 APPLIC (12:16)
--- NOTE | 2021-02-03 12:22 | SUR.OPER ---
Called and notified of surgical start and progress
--- NOTE | 2021-02-03 12:40 | SUR.OPER ---
Updated on surgical progress.
[2021-02-03] MEDS: EPINEPHrine 1 mg/mL INJ (13:02)
[2021-02-03] MEDS: thrombin 5,000 unit SDV 5000 UNIT (13:03)
--- NOTE | 2021-02-03 14:15 | P.OP_ITS ---
Operative Report Date of procedure: February 03, 2021 Pre-op Diagnosis: Thyroid Isthmus Nodule with suspicious FNA biopsy Post-op diagnosis: same Post-op Findings: Extensive post surgical changes of the anterior neck centered on the left tracheoesophageal groove Large thyroid isthmus mass Unable to stimulate the left vagus nerve O/W normal anterior neck exam Procedure Done: Partial thyroidectomy with excision of a thyroid isthmus mass Implants: None Specimens removed/disposition: Thyroid isthmus mass Pathology: other Pathology: Thyroid isthmus mass Surgeon: Benigno Goldberg Community Assistant: Zully Broderick Anesthesia: General Estimated blood loss (mL): 25 IV fluids (mL): 1,000 Urine output (mL): 100 Complications: None Findings: Extensive post surgical changes and scarring of the left anterior neck centered on the left tracheoesophageal groove Large thyroid isthmus mass Unable to stimulate left vagus nerve O/W normal anterior neck exam Condition: stable Disposition: PACU Brief History: 65 yo wm with a h/o a large thyroid isthmus mass with an FNA biopsy suspicious for malignancy. The patient desires surgical therapy. Procedure: The patient was identified in the preoperative holding area was taken to the operating room where he was placed on the operating table in the supine position. Anesthesia was obtained with general endotracheal anesthesia after placing a Nirvana nerve monitoring electrode on the endotracheal tube. The glide scope was used to confirm placement of the electrode. The patient had a well-healed incision of the anterior neck that was injected with local anesthesia. The patient was then prepped and draped in the usual sterile fashion. The incision was made in the anterior neck with a 15 blade and the dissection proceeded down through the subcutaneous tissues with electrocautery. The Nirvana nerve monitoring hemostat was then used to dissected in the midline until the trachea was encountered both visually and to palpation there was a large thyroid isthmus mass that was identified by palpation overlying the lower portion of the trachea and the surgical field. At this point an inspection was carried out of the patient's surgcial field - the patient had extensive scarring, and the lateral border of the thyroid isthmus mass was indistinct. At this point an attempt was made to dissect the left thyroid lobe by dissecting in to the area of the carotid sheath. The nerve monitoring hemostat was used to probe the left carotid sheath for a positive signal. Despite significant probing and repositioning of the nerve monitoring system, no nerve monitor signal was obtained. At this point I elected to abandon the attempt and proceeded with a thyroid isthmusectomy as this was a safer option given the level of scarring in the left neck and the lack of signal on the left. The tracheoesophageal groove was left undisturbed on the left and the thyroid isthmus was divided on either side of the mass with Daysi clamps, and a #15 blade. At this point the stump of the thyroid isthmus was oversewn with a Vicryl baseball stitch and the harmonic scalpel was used the remove the thyroid isthmus mass. After removal, the mass appeared to be intact without violation of its borders. At this point the wound was irrigated with a copious amount normal saline and hemostasis was achieved with bipolar cautery. Gelfoam soaked in thrombin was then placed in the wound and the wound was dusted with a light coating of Mary. At this point a small drain was placed in the wound, and the wound was closed in layers with 4-0 and 5-0 Monocryl sutures in the subcu and Dermabond and Steri-Strips on the skin. At this point the procedure was terminated and control of the patient was returned to anesthesia where he underwent an uneventful reversal of anesthesia and extubation and was taken to the recovery room in stable condition. There were no operative or anesthetic complications.
[2021-02-03] MEDS: triamcinolone 40 mg/mL SDV IM (14:18)
--- NOTE | 2021-02-03 14:54 | ANE.PACU2 ---
Inpatient post-anesthesia follow up: Airway intact: Yes Vital signs: Temperature 97.7 F Pulse Rate 67 Respiratory Rate 14 Blood Pressure 159/85 Pulse Oximetry 94 Oxygen Delivery Me thod Room Air Oxygen Flow Rate 8 Fraction of Inspir ed Oxygen Hydration adequate: Yes Nausea and vomiting: No Pain level: 2 Mental status: Baseline
[2021-02-03] MEDS: fentaNYL 50 mcg/mL INJ 2mL IVP ×2 (15:40→17:00)
[2021-02-03] MEDS: carvedilol 12.5 mg Tablet PO (17:15)
--- NOTE | 2021-02-03 17:49 | PM.PN ---
Subjective Subjective: Interval history: 65 yo wm who is night of surgery s/p partial thyroidectomy/isthumusectomy for a thyroid isthmus nodule with a suspicious FNA biopsy. The patient reports that he is doing well, and has no other c/o. Vitals/I&O/Wt Last Vital Signs Temp 97.7 F 02/03/21 14:40 Pulse 67 02/03/21 14:40 Resp 18 02/03/21 17:00 BP 159/85 02/03/21 14:40 Pulse Ox 97 02/03/21 17:00 02/03/21 02/03/21 02/03/21 06:59 14:59 22:59 Intake Total 1060 / 1060 Output Total 225 / 225 35 / 260 Balance 835 / 835 -35 / 800 Weight last 48 hrs Weight 124.738 kg Physical Exam Const: COMMON NORMALS: no acute distress and patient oriented x3 Eye: COMMON NORMALS: Equal, round and reactive pupils present, EOMs intact bilaterally and conjunctivae normal CONJUNCTIVA: Yes conjunctivae normal PUPIL: Yes Equal, round and reactive pupils present Neck/C-Spine: COMMON NORMALS: full ROM, no lymphadenopathy and Thyroid normal (The thyroid incision is intact and without swelling.) GENERAL: Yes lymphadenopathy THYROID: Thyroid normal (The thyroid incision is intact and without swelling.) Chest: COMMONS NORMALS: normal inspection of the chest Cardio: COMMON NORMALS: regular rate and regular rhythm RATE: regular rate RHYTHM: regular rhythm Neuro: COMMON NORMALS: patient oriented x3 Urinary Catheter Management^: Rose: Cath Placed During This Visit: yes, but has since been removed by the nurse Urinary Catheter Date of Insertion: 02/03/21 Urinary Catheter Time of Insertion: 11:30 Date Urinary Catheter Removed: 02/03/21 Time Urinary Catheter Discontinued: 14:01 Data : 02/03/21 10:35 A&P Additional A&P Information Impression: 65 yo wm who is night of surgery s/p partial thyroidectomy doing well with normal post operative voice. Plan: - ICU observation overnight - ERIBERTO drain - Pain control - Anticipate d/c in the am if everything goes well Attestations Medical Necessity Statement*: The patient requires overnight observation of his airway. Coding Level of Care Code Acute Patient Service Associate for Lion Britt
[2021-02-03] MEDS: docusate sodium 100 mg Capsule PO (18:36)
[2021-02-03] MEDS: famotidine 20 mg/2 mL INJ IVP (18:36)
[2021-02-03] MEDS: BuSPIRONE 10 mg Tablet 15 MG PO (18:36)
[2021-02-03] MEDS: oxyCODONE-APAP 5-325 mg Tablet 1 TAB PO (21:20)
[2021-02-03] MEDS: cloNIDine 0.1 mg Tablet 0.2 MG PO (21:20)
[2021-02-04] VITALS (11 sets, daily range): BP systolic 130–201; BP diastolic 69–90; PULSE 58–68; RESP 13–17; TEMP 37.1; O2SAT 91–96
[2021-02-04] MEDS: lactated ringers 1,000 ML 125 ML IV (00:19)
[2021-02-04] MEDS: oxyCODONE-APAP 5-325 mg Tablet 1 TAB PO (04:38)
[2021-02-04] MEDS: famotidine 20 mg/2 mL INJ IVP (05:00)
--- NOTE | 2021-02-04 05:47 | PC.NURSE ---
Shift Note Pt wears CPAP at home, but did not bring it. Respiratory consulted and discussed use of oxygen instead (if needed). Pt O2 monitored and stayed well above 90% throughout the night. O2 was unneeded. Frequent safety and comfort rounds continue. Orders and/or nursing care completed as indicated. Patient monitored for response to intervention and treatment(s). Education provided included explanation of why pt has a sore throat, not where the incision was. Patient verbalized understanding of education. Will continue to monitor.
[2021-02-04] MEDS: amlodipine 10 mg Tablet PO (08:35)
[2021-02-04] MEDS: FUROsemide 20 mg Tablet PO (08:35)
[2021-02-04] MEDS: carvedilol 12.5 mg Tablet PO (08:35)
[2021-02-04] MEDS: BuSPIRONE 10 mg Tablet 15 MG PO (08:35)
--- NOTE | 2021-02-04 08:35 | P.PN_ITS ---
Subjective Subjective: Interval history: 65 yo wm who is POD #1 s/p partial thyroidectomy who is doing well. He is eating well and his voice is unchanged from preop by his report. Vitals/I&O/Wt Last Vital Signs Temp 98.9 F 02/03/21 17:52 Pulse 58 L 02/04/21 06:00 Resp 14 02/04/21 06:00 BP 160/84 02/04/21 06:00 Pulse Ox 95 02/04/21 06:00 02/03/21 02/04/21 02/04/21 22:59 06:59 14:59 Intake Total 300 / 1360 1000 / 1000 Output Total 35 / 260 1100 / 1360 Balance -35 / 800 -800 / 0 1000 / 1000 Weight last 48 hrs Weight 124.738 kg Physical Exam Const: COMMON NORMALS: no acute distress and patient oriented x3 HENMT: COMMON NORMALS: external ears normal EXTERNAL EAR: Yes external ears normal Eye: COMMON NORMALS: conjunctivae normal GENERAL EYE: appearance normal, both eyes and all related structures CONJUNCTIVA: Yes conjunctivae normal Neck/C-Spine: COMMON NORMALS: no lymphadenopathy and supple THYROID: other (The thyroid incision is intact without swelling or redness.) Chest: COMMONS NORMALS: normal inspection of the chest Resp: COMMON NORMALS: normal respiratory effort, No use of accessory muscles and clear to auscultation bilaterally AUSCULTATION: clear to auscultation bilaterally Cardio: COMMON NORMALS: regular rate, regular rhythm and No murmurs present (Cardio) RATE: regular rate RHYTHM: regular rhythm GI: COMMON NORMALS: Normal to inspection, nondistended, normoactive bowel sounds present Extremity: COMMON NORMALS: normal to inspection and full ROM Neuro: COMMON NORMALS: patient oriented x3, CN's II-XII intact bilaterally and no focal motor deficits Psych: COMMON NORMALS: mental status grossly normal and Normal thought process present THOUGHT PROCESS: Normal thought process present Urinary Catheter Management^: Rose: Cath Placed During This Visit: yes, but has since been removed by the nurse Urinary Catheter Date of Insertion: 02/03/21 Urinary Catheter Time of Insertion: 11:30 Date Urinary Catheter Removed: 02/03/21 Time Urinary Catheter Discontinued: 14:01 Data : 02/03/21 10:35 A&P Additional A&P Information Impression: 65 yo wm who is doing well on POD #1 s/p partial thyroidectomy Plan: - Continue closed suction drainage - [place] () tabs: take 1-2 tabs po Q5 hours prn pain, #28, NR - D/C to home - F/U in Dr. Goldberg's office on 02/06/21 @ 13:00 hours - Contact Dr. Goldberg for any problems Attestations Medical Necessity Statement*: The patient required overnight observation of his airway Coding Level of Care Code Acute Car Repair Supervisor for Chg Balwinder
[2021-02-04] MEDS: tamsulosin 0.4 mg Capsule PO (08:36)
[2021-02-04] MEDS: losartan 50 mg Tablet 100 MG PO (08:36)
[2021-02-04] MEDS: potassium chloride ER 10 mEq Tablet PO (08:37)
[2021-02-04] MEDS: ropinirole 2 mg Tablet PO (08:38)
--- NOTE | 2021-02-04 08:53 | PC.NURSE ---
dr. tolbert in. pt. to go home. j.p. drain compressed, red drainage.
--- NOTE | 2021-02-04 09:54 | PC.NURSE ---
pt. ambulated to surgical services entrance with instructions.
--- NOTE | 2021-02-04 10:01 | PC.NURSE ---
0956 incision to neck w/o drainage from incision, steri-strips in place. j.p. drain emptied 20cc red drainage, and recompressed. no c/o of pain
--- NOTE | 2021-02-08 11:37 | PC.SOCIAL ---
hospital follow up call made. Patient saw Dr. Goldberg on 02-06-21, ERIBERTO drain was removed. Patient hasn't filled his hydrocodone, but plans to fill today incase needed.
== END 2021-02-04 09:45 | disposition home or self-care (01) ==
LOC: ICU 02-04 07:07
PROVIDERS: Anesthesiology; Admitting Provider Specialist; PCP Nurse Practitioner Family; Visit Provider Specialist
PROC: (CPT 60240; principal; 2021-02-03 11:00)
DX: E04.1 Nontoxic single thyroid nodule (principal); G47.30 Sleep apnea, unspecified; I10 Essential (primary) hypertension; E78.5 Hyperlipidemia, unspecified; E66.01 Morbid (severe) obesity due to excess calories; Z68.39 Body mass index [BMI] 39.0-39.9, adult; N40.0 Benign prostatic hyperplasia without lower urinary tract symptoms; E78.00 Pure hypercholesterolemia, unspecified
CPT/HCPCS: 60210; 12345; 80048; 88307; 96372; G0378; J0171; J0330; J0690; J1100; J1200; J2370; J2405; J2704; J3010; J3301; J3490; J7030

== ENCOUNTER 2021-03-30 07:05 | Outpatient (CLI) | payer BC, SELFPAY ==
[2021-03-30 08:41] LABS: Free T4 Free Thyroxine 1.08 ng/dL (0.82-1.77)
== END 2021-03-30 07:06 | disposition home or self-care (01) ==
LOC: LAB 07:09
PROVIDERS: PCP Nurse Practitioner Family; Visit Provider Specialist
DX: E04.1 Nontoxic single thyroid nodule (principal)
CPT/HCPCS: 36415; 84439; 84443

== ENCOUNTER → 2021-05-16 09:06 | Outpatient (BNVA) | payer BC, SELFPAY | PROVIDERS: PCP Nurse Practitioner Family; Visit Provider Urology | DX: R35.1 Nocturia (principal) | CPT/HCPCS: 81003 ==

== ENCOUNTER → 2021-07-06 08:25 | Outpatient (BNVA) | payer BC, SELFPAY | PROVIDERS: PCP Nurse Practitioner Family; Visit Provider Physician Assistant | DX: M48.062 Spinal stenosis, lumbar region with neurogenic claudication (principal); M54.31 Sciatica, right side; M54.32 Sciatica, left side; M43.16 Spondylolisthesis, lumbar region; Z98.890 Other specified postprocedural states; M47.816 Spondylosis without myelopathy or radiculopathy, lumbar region | CPT/HCPCS: 72100 ==

== ENCOUNTER 2021-09-05 10:34 | Outpatient (CLI) | payer BC, SELFPAY ==
--- NOTE | 2021-09-05 11:00 | MR_ITS ---
WS: [id number] MRI LUMBAR SPINE WITH CONTRAST TECHNIQUE: Sagittal T1, T2 and STIR imaging. Axial T1 and T2 imaging. Post gadolinium imaging was obt ained. CLINICAL INFORMATION: M47.816 - Spondylosis without myelopathy or radiculopathy... COMPARISON: MRI November 14, 2020 FINDINGS: Mild lumbar curve. No acute compression. No high-grade central canal stenosis. Postoperative changes hemilaminectomy RIGHT L4-L5. L1-L2: Mild facet arthropathy. Spinal canal and foramen are patent. L2-L3: No significant disc bulging. Mild facet arthropathy. Spinal canal and foramen are patent. L3-L4: No significant disc bulging. Mild facet arthropathy ligamentum flavum hypertrophy. Narrowing o f the subarticular recess bilaterally with mild central canal stenosis. Mild RIGHT foraminal narrowin g. L4-L5: Prior laminectomy defects. Moderate facet arthropathy ligamentum flavum flavum hypertrophy. Mi ld residual central canal stenosis. Impingement on the subarticular recess bilaterally. Small bilater al foraminal protrusions LEFT greater than RIGHT with slight impingement on the exiting LEFT greater than RIGHT L4 nerve roots. L5-S1: Mild annular bulging with slight effacement of ventral thecal sac. Slight impingement traversi ng RIGHT S1 nerve root in the subarticular recess. Moderate facet arthropathy with ligamentum flavum flavum hypertrophy. Mild RIGHT foraminal narrowing. Visualized pelvic bony structures: Normal. Paravertebral soft tissues: Normal. MR/MR lumbar spine wo/w con [id number] IMPRESSION: 1. Postoperative changes RIGHT L4-L5 hemilaminectomy 2. Mild residual central canal stenosis L4-L5 with impingement on the traversi ng L5 nerve roots bilaterally. Central canal stenosis improved from previous. 3. Impingement on the RIGHT S1 nerve root in the subarticular recess L5-S1. 4. Small bilateral foraminal protrusions L4-L5 worse in the LEFT with slight i mpingement on the exiting LEFT L4 nerve root and moderate LEFT foraminal narrow ing. 5. Mild to moderate RIGHT L5-S1 foraminal narrowing with contact of the exitin g RIGHT L5 nerve root. 6. Mild central canal stenosis L3-L4 with moderate facet arthropathy ligamentu m flavum hypertrophy. Mild RIGHT L3-L4 foraminal narrowing. 7. No abnormal gadolinium enhancement. Normal postoperative enhancement.
[2021-09-05] MEDS: gadobenate dimeglumine 20 mL vial IV (11:39)
== END 2021-09-05 10:35 | disposition home or self-care (01) ==
PROVIDERS: PCP Nurse Practitioner Family; Visit Provider Physician Assistant
DX: M47.816 Spondylosis without myelopathy or radiculopathy, lumbar region (principal); M43.16 Spondylolisthesis, lumbar region; M48.061 Spinal stenosis, lumbar region without neurogenic claudication; M51.26 Other intervertebral disc displacement, lumbar region
CPT/HCPCS: 72158

== ENCOUNTER → 2021-09-28 00:01 | Outpatient (BNVA) | payer BC, MEDICARE, SELFPAY | PROVIDERS: PCP Nurse Practitioner Family; Visit Provider Orthopaedic Surgery | DX: Z20.822 Contact with and (suspected) exposure to COVID-19 (principal) | CPT/HCPCS: 87635 ==

== ENCOUNTER 2021-10-04 15:46 | Inpatient (IN) | payer BC, MEDICARE, SELFPAY ==
[2021-09-28 10:24] VITALS: BMI 40.3
--- NOTE | 2021-09-28 13:18 | P.ANESASSM_ITS ---
Pre-Anesthetic Assessment Height/Weight: Height 1.78 m Weight 127.459 kg Preop Diagnosis: Thyroid Isthmus Nodule with suspicious FNA biopsy Operation Date: 10/04/21 07:00 Proposed Procedures p PLIF L4/5,L5/S1 97259/20537/45700 X2/40056/43874/72069/M48.062(Not Applicable) - Manny Lowery, Familial anesthetic complications: None Was Beta Esme taken within 24 hours: Yes Was Clonidine taken within 24 hours: N/A Social No alcohol and No tobacco Exam alert, oriented x 3, clear to auscultation bilaterally and regular rate & rhythm Airway Submandibular: within normal limits Cervical ROM: within normal limits Mallampati: Class II Dentition: false (lower) CV/HEM Hypertension Metabolic Hyperlipidemia and Morbid Ob[place] [facility] [place] Back Pain chronic pain/opioid Anesthetic Plan ASA status: 3 Anesthesia: General Risk of > 500 ml blood loss (7ml/kg in children): Yes, adequate IV access and fluids planned Medications/Allergies Home Medications Medication Instructions Recorded Confirmed Last Taken Type aspirin 81 mg tablet,delayed 81 mg PO DAILY 12/28/19 09/28/21 01/31/21 History release (Aspir-) furosemide 20 mg tablet 20 mg PO DAILY 12/28/19 09/28/21 02/02/21 History losartan 100 mg tablet 100 mg PO DAILY 12/28/19 09/28/21 02/02/21 History trazodone 150 mg tablet 150 mg PO DAILY 12/28/19 09/28/21 02/02/21 History buspirone 15 mg tablet 15 mg PO BID 10/10/20 09/28/21 02/02/21 History clonidine HCl 0.2 mg tablet 0.2 mg PO BID PRN 10/10/20 09/28/21 12/28/20 History tramadol 50 mg tablet 50 mg PO DAILY 10/10/20 09/28/21 02/03/21 History potassium chloride 10 mEq 10 meq PO DAILY 11/23/20 09/28/21 02/02/21 History capsule,extended release ropinirole 2 mg tablet 2 mg PO DAILY 11/23/20 09/28/21 02/02/21 History carvedilol 25 mg tablet 25 mg PO BID #60 tab 02/06/21 09/28/21 Unknown Rx amlodipine 10 mg tablet 10 mg PO DAILY #90 tab 02/27/21 09/28/21 Unknown Rx finasteride 5 mg tablet 5 mg PO DAILY #90 tab 05/16/21 09/28/21 Unknown Rx sildenafil 100 mg tablet 100 mg PO DAILY PRN #20 tab 05/16/21 09/28/21 Unknown Rx baclofen 20 mg tablet 20 mg PO TID 09/28/21 09/28/21 Unknown History gabapentin 300 mg capsule 900 mg PO DAILY 09/28/21 09/28/21 Unknown History oxycodone-acetaminophen 5 mg-325 1 tab PO DAILY 09/28/21 09/28/21 Unknown History mg tablet Allergies Allergy/AdvReac Type Severity Reaction Status Date / Time No Known Allergies Allergy Verified 09/05/21 14:18 COUNTS INCLUDE 234 BEDS AT THE [facility] Anesthesia Medical History BPH (benign prostatic hyperplasia) BPH loc w urin obs/LUTS Erectile dysfunction HTN (hypertension) Hypercholesteremia Varicose veins of both lower extremities Surgical History S/P left knee arthroscopy Family History Father , at age 84 Natural Mother , at age 42 Cancer Other CAD (coronary artery disease) Social History Smoking and tobacco status: never smoked Alcohol intake: never Marital status: Current occupational status: employed History of recent travel: No Data Anesthesia Cardiac Studies: No Data to Display
[2021-10-04] VITALS (28 sets, daily range): BP systolic 119–166; BP diastolic 67–128; PULSE 56–72; RESP 8–22; TEMP 35.9–36.6; O2SAT 89–100; BMI 41.8
--- NOTE | 2021-10-04 | SCC_ITS ---
Procedure done: 1. L5/S1 Interbody fusion with posterolateral fusion 2. Instrumentation L4 - S1 3. Posterior spine fusion from L4 - S1 4. Cage at L5/S1 5. revision Laminectomy L4 with partial facetectomies bilateral 6. Laminectomy L5 with partial facetectomies for decompression of the nerves 5. use of autograft from same incision 6. allograft 7. Bone marrow aspirate from pedicle 13 seconds of fluoroscopic guidance, for a cumulative dose of 77.7 mGy, was provided to Dr. Lowery by the radiology department. C-arm images of the lumbar spine were saved for the patient's permanent record. [facility]
--- NOTE | 2021-10-04 | XR_ITS ---
WS: [id number] XR lumbar spine 2-3V* [id number] REASON FOR EXAM: Spinal stenosis lumbar w/neurogenic claudication FINDINGS: Pedicle screws at L4, L5, and interbody fusion device at L5-S1. XR/XR lumbar spine 2-3V* [id number] IMPRESSION: Intraoperative lumbar spine as above.
[2021-10-04] MEDS: sodium chloride 0.9% 1,000 ML 30 ML IV (09:20)
[2021-10-04 09:28] LABS: Basophils % 0.7 %; Eosinophils # 0.1 10^3/uL (0.0-0.8); Eosinophils % 2.3 %; Hematocrit 39.1 % (42.0-52.0); Hemoglobin 13.6 g/dL (11.7-16.6); Lymphocytes # 1.2 10^3/uL (0.8-4.8); Lymphocytes % 20.2 %; Mean Corpuscular HGB Conc 34.8 g/dL (30.0-36.0); Mean Corpuscular Hemoglobin 30.8 pg (28.0-34.0); Mean Corpuscular Volume 88.5 fl (80-94); Mean Platelet Volume 11.1 fL (7.4-10.4); Monocytes # 0.6 10^3/uL (0.2-0.9); Monocytes % 9.9 %; Neutrophils # 4.09 10^3/uL (1.8-7.7); Neutrophils % 66.6 %; Nucleated Red Blood Cells % 0 %; Platelet Count 172 10^3/cmm (130-400); Red Blood Count 4.42 10^6/uL (4.1-5.3); Red Cell Distribution Width 12.9 % (12.1-15.1); White Blood Count 6.1 10^3/uL (4.0-10.0)
--- NOTE | 2021-10-04 10:05 | P.ANESUD_ITS ---
Pre-Anesthetic Update Pre-Anesthetic Assessment: Date of Surgery/Procedure: 10/04/21 Preop Gina gnosis: Spondylolisthesis L4-5 with ddd L spine Proposed Procedure: Operation Date: 10/04/21 09:50 Proposed Procedures p PLIF L4/5,L5/S1 04555/99559/48841 X2/09392/60808/90261/M48.062(Not Applicable) - Manny Lowery, DO Any changes to Pre-Anesthetic Assessment?: No Last Intake: Intake Last Liquid Date 10/03/21 Last Liquid Time 19:00 Last Solid Date 10/03/21 Last Solid Time 19:00 Labs Last 48hrs: Short CBC 10/04/21 Range/Units 09:12 WBC 6.1 (4.0-10.0) 10^3/ uL Hgb 13.6 (11.7-16.6) g/dL Hct 39.1 L (42.0-52.0) % MCV 88.5 (80-94) fl Plt Count 172 (130-400) 10^3/c mm Neut % (Auto) 66.6 % Neut # (Auto) 4.09 (1.8-7.7) 10^3/u L Vitals: Temperature 97.6 F 10/04/21 08:51 Temperature Source Temporal Artery S can 10/04/21 08:51 Pulse Rate 60 10/04/21 08:51 Pulse Rhythm 10/04/21 08:51 Pulse Strength 3+ Normal 10/04/21 08:51 Respiratory Rate 18 10/04/21 08:51 Blood Pressure 166/78 10/04/21 08:51 Blood Pressure Lauren n 107 10/04/21 08:51 Pulse Oximetry 96 10/04/21 08:51 Oxygen Delivery Me thod 10/04/21 08:51 Exam: Pre-Anes Outpt Exam: alert, oriented x 3, clear to auscultation bilaterally and regular rate & rhythm Cardiac Studies: No Data to Display
--- NOTE | 2021-10-04 10:22 | W.PM.OPSUD ---
Surgery/Procedure H&P Update DATE OF PROCEDURE: October 04, 2021 DATE H&P PERFORMED: 09/05/21 H&P UPDATE INFORMATION: I have reviewed H&P completed within last 30 days, I have examined patient prior to procedure and No changes to prior documentation PREOP DIAGNOSIS: Spondylolisthesis L4-5 with ddd L spine PLANNED PROCEDURE: Operation Date: 10/04/21 09:50 Proposed Procedures p PLIF L4/5,L5/S1 01893/46828/[id number] X2/10985/69140/52069/M48.062(Not Applicable) - Manny Lowery DO
[2021-10-04] MEDS: ceFAZolin 1,000 MG in sodium chloride 0.9% (plus) 50 ML 100 MG IV (11:15)
[2021-10-04] MEDS: heparin, porcine 1,000 unit/mL INJ 10 mL 10000 UNIT IRRIGATION (11:38)
[2021-10-04] MEDS: vancomycin 1,000 MG SDV 1000 MG XX (11:38)
[2021-10-04 14:42] LABS: Hematocrit 34.4 % (42.0-52.0); Hemoglobin 11.7 g/dL (11.7-16.6)
--- NOTE | 2021-10-04 14:46 | PM.OP ---
Operative Report Date of procedure: October 04, 2021 Pre-op diagnosis: Preop Diagnosis Spondylolisthesis L4-5 with ddd L spine; neurogenic claudication Post-op diagnosis: same Procedure done: 1. L5/S1 Interbody fusion with posterolateral fusion 2. Instrumentation L4 - S1 3. Posterior spine fusion from L4 - S1 4. Cage at L5/S1 5. revision Laminectomy L4 with partial facetectomies bilateral 6. Laminectomy L5 with partial facetectomies for decompression of the nerve 7. Use of computer navigation/ stereotactic spine 8. Bone marrow aspirate from right iliac crest 9. use of autograft from same incision 10. allograft Surgeon: Manny Lowery Licensed Occupational Therapist: Scotty Calvo Licensed Occupational Therapist: The surgical scrub tech, Scotty Calvo, PAC was needed for his expertise under the microscope. He was important and necessary throughout the procedure to complete in a safe and timely manner. He assisted with patient positioning prepping and draping tissue retraction suctioning of the operative field protection of the dural sac and tissue closure Estimated blood loss (mL): 500 Procedure: 1. L5/S1 Interbody fusion with posterolateral fusion 2. Instrumentation L4 - S1 3. Posterior spine fusion from L4 - S1 4. Cage at L5/S1 5. revision Laminectomy L4 with partial facetectomies bilateral 6. Laminectomy L5 with partial facetectomies for decompression of the nerve 7. Use of computer navigation/ stereotactic spine 8. Bone marrow aspirate from right iliac crest 9. use of autograft from same incision 10. allograft Patient is brought to the operative suite. After undergoing anesthesia, the patient had neuro monitoring attached. Patient was then placed in the prone position on the Ab table. All areas of impingement were well-padded. Patient was then prepped and draped in the normal sterile fashion. Skin incision was then made over the L4- S1 space. Subperiosteal dissection was made out to the transverse processes of L4 and L5 and S1 areas bilaterally. Next attention was brought to placing the [email or web address] cell bone marrow aspiration kit. The [email or web address] bone marrow aspirate kit was used to aspirate bone marrow aspirate. This was done by using the sharp probe to open up the bone. Aspiration was performed and then the blunt probe was then used to dissect down to through the bone tunnel. An aspirating well drawn back a millimeter approximately 20 cc of bone marrow aspirate was used. And mixed with the allograft and autograft bone that will be used. Next attention was brought to placing the fiducial into the right iliac crest. This was done by placing 2 pins into the iliac crest. These pins were removed at the end of the case. The fiducial was attached to these pins. The C-arm was brought in and the C-arm was brought around the patient in order to get the information loaded into the computer. And use with the fiducial. The technique for placing the pedicle screws was to use a drill followed by the gearshift probe linked to computer navigation Followed by the ball probe to feel the superior inferior medial lateral vann of the pedicles. Then placement of the screws linked to computer navigation Was done at each pedicle. Screws were placed at L4 bilaterally and L5 bilaterally and S1 bilaterally. Next attention was brought to performing the laminectomy ofL5. This was done using the high-speed bur Kerrisons and curettes. Once the lamina was removed and then attention was brought to performing a partial facetectomy on the contralateral side. This was done again using the high-speed bur curettes and Kerrisons. The ligamentum flavum was taken down bilaterally from L5 to S1. Attention was then brought to the facet on the ipsilateral side. The facet was taken down. The S1 nerve was decompressed as it passed around the S1 pedicle. The laminectomy was done for purposes of decompressing the nerve as well as placement of the cage. The L5 nerve was identified as it traversed through the L5/S1 foramen. The thecal sac was identified and retracted. The L5/S1 disc base was identified. Using a knife the disc base was opened. And then sequential raymundo were placed. The first shaver was a 6 and the last shaver was a 12. Using a pituitary and down going curette the endplates were scraped and disc material was removed from the space. Once adequate decompression of the disc base was felt to be had. Osteoamp sponge was packed into the anterior aspect of the disc base. Then a size 12 cage from Donny was placed after packing osteoamp into the cage. While placing the cage the thecal sac and S1 nerve was protected. C arm was used to ensure that the cages placed in the appropriate position. Next attention was brought to decompressing the L4-5 level. Patient had a previous laminectomy at this level. On the right side. This point the high-speed bur was used to take down the lamina and medial aspect of the facet joint on the left side this was done using curved curettes and Kerrison rongeurs. Once the lamina was taken down and the medial aspect of facet was taken down ligamentum flavum was taken down from L4-L5. The top part of the lamina on the right side was taken down with a high-speed bur up to the point where the previous laminectomy was and then Kerrison was used to take down this part of the lamina. Medial aspect of the facet joint was taken down again with a high-speed bur and Kerrison rongeurs and curved curettes. And then inferiorly around the medial aspect of facet was taken down. The scar tissue was then gingerly taken down from the dura there is still some remaining scar tissue however it was not attached to anything. Other than the dura. The L4 nerve roots were palpated with a large curved curette out the foramens bilaterally. This was also done L5 bilaterally and S1 bilaterally roots were completely freed up. C-arm was brought in to ensure the screws and cage were well positions. Attention was then brought to attaching the rods to the screws placed in the L4 bilaterally L5 bilaterally and S1 bilaterally. Caps were torqued into position. Locking the construct in place. Wound was copiously irrigated and then attention was brought to decorticating the facets and transverse processes laterally. Bone that was taken down from the lamina was used along with osteoamp fibers and sponges were packed into the lateral gutters along the facet joints. This was done bilaterally. Wound was then closed in a layered fashion starting with the thoracolumbar fascia. 0-vicryl was used the sub cutaneous tissue was closed with 2-0 vicryl and skin with 4-0 monocryl. Glue was then used to seal the skin and a steril dressing was applied. Patient was then placed in the supine position. The endotracheal tube was removed and patient was transferred to the PACU in stable condition.
--- NOTE | 2021-10-04 15:40 | SUR.PHASEI ---
1506 PT TO PACU 5 WARM BLANKETS TO PT, PT ID BRACELET TO LT WRIST PT ID WITH 2 IDENTIFIERS, PT IV TO LT FOREARM #18 NS 500ML UP AT MOD RATE, PT WITH ORAL AIRWAY IN PLACE, GOOD RESPIRATORY EFFORT NOTED, BILAT SCDS ON AND WORKING PT HAS A CEVALLOS CATHETER TO DEPENDANT DRAINAGE, DARK YELLOW URINE WITH SEDIMENT NOTED TO TUBING IN SMALL AMT, VSS DRESSING TO LOWER BACK D/I ON ARRIVAL TO PACU. HEMAVAC DRAIN COMPRESSED WITH GOOD SUCTION NOTED SMALL AMT OF RED DRAINAGE NOTED TO TUBING ONLY.
--- NOTE | 2021-10-04 15:52 | SUR.PHASEI ---
PT RESTLESS, ORAL AIRWAY OUT PT MOANING AND MOVING BILAT LEGS AND FEET, TWISTING IN BED, BUT REMAINS VERY SLEEPY , DOES NOT VERBALIZE PAIN OR FOLLOW COMMANDS.
[2021-10-04] MEDS: fentaNYL 50 mcg/mL INJ 2mL IVP (15:55)
--- NOTE | 2021-10-04 16:00 | SUR.PHASEI ---
1532 PT REMAINS RESTLESS AND MOANING, SEE PAIN MED GIVEN, VSS. DRESSING TO LOWER BACK AND ABDOMINAL BINDER D/I
--- NOTE | 2021-10-04 16:49 | SUR.PHASEI ---
PT AWAKE ALERT NOW, VERBAIZING APPROP, VSS IV PATENT, PT TAKING OCC ICE CHIPS, PT DENIES PAIN , MOVES BILAT FEET TO COMMAND WITH STRONG BILAT FLEX AND EXTENSION NOTED. PT FAMILY UPDATED THAT
[2021-10-04] MEDS: docusate sodium 100 mg Capsule PO (17:49)
[2021-10-04] MEDS: HYDROcodone-acetaminophen 5-325 mg Tablet PO (17:49)
[2021-10-04] MEDS: carvedilol 25 mg Tablet PO (17:49)
[2021-10-04] MEDS: BuSPIRONE 10 mg Tablet 15 MG PO (17:50)
[2021-10-04] MEDS: lactated ringers 1,000 ML 90 ML IV (17:51)
[2021-10-04] MEDS: baclofen 10 mg Tablet 20 MG PO (21:16)
[2021-10-04] MEDS: ropinirole 2 mg Tablet PO (21:17)
[2021-10-04] MEDS: trazodone 150 mg Tablet PO (21:20)
[2021-10-04] MEDS: ketorolac 30 mg/mL INJ IVP (21:22)
[2021-10-05] VITALS: BP 127/94; PULSE 59; RESP 17; TEMP 36.4; O2SAT 95
[2021-10-05] MEDS: HYDROcodone-acetaminophen 5-325 mg Tablet PO ×2 (01:24→05:22)
[2021-10-05] MEDS: lactated ringers 1,000 ML 90 ML IV (03:52)
[2021-10-05 04:00] VITALS: BP 147/80; PULSE 66; RESP 19; TEMP 37.2; O2SAT 97
[2021-10-05] MEDS: enoxaparin 40 mg/0.4 mL Syringe SUBCUT (05:23)
--- NOTE | 2021-10-05 07:59 | P.PN_ITS ---
Subjective Subjective: POD 1 Patient resting comfortably. Reports improvement of leg pain has some mild back pain. His is present. Denies any headaches, chest pain, shortness of breath. He is ready for discharge home. Vitals/I&O/Wt Last Vital Signs Temp 98.9 F 10/05/21 04:00 Pulse 66 10/05/21 04:00 Resp 19 H 10/05/21 04:00 BP 147/80 10/05/21 04:00 Pulse Ox 97 10/05/21 04:00 10/04/21 10/05/21 10/05/21 22:59 06:59 14:59 Intake Total 2440 / 3550 1621.5 / 5171.5 Output Total 1990 / 2290 460 / 2750 Balance 450 / 1260 1161.5 / 2421.5 Weight last 48 hrs Weight 295 lb 6.4 oz Weight 291 lb 3.2 oz Physical Exam Narrative: Patient presents alert and oriented x3 with a good general appearance normal mood and affect. Normal coordination normal stability. Mild tenderness around the incisional site with the incision appear to be healing nicely. Hemovac drain intact. No signs of erythema or drainage. No signs of infection. Patient denies any fevers or chills. 5/5 motor strength both lower extremities with negative straight leg raise bilaterally. Calves are supple no medial thigh tenderness. Pulses are 2+ at the dorsalis pedis and posterior tibial region. Good capillary refill throughout normal sensation light touch both lower extremities. Urinary Catheter Management: Rose: Cath Placed During This Visit: yes Reason for Continuing Indwelling Catheter: Perioperative Use in Selected Surgeries Urinary Catheter Date of Insertion: 10/04/21 Urinary Catheter Time of Insertion: 11:00 Data : 10/04/21 14:23 A&P Assessment and plan (1) Status post lumbar spinal fusion: We will discontinue the Rose catheter and Hemovac drain. Have physical therapy to evaluate and mobilize. Work to discharge him later this morning. Encouraged him to continue walking program at home no bending lifting or twisting act ivities. We will see him back next week in the office for a wound check. 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
[2021-10-05] MEDS: amlodipine 10 mg Tablet PO (08:29)
[2021-10-05] MEDS: BuSPIRONE 10 mg Tablet 15 MG PO (08:29)
[2021-10-05] MEDS: baclofen 10 mg Tablet 20 MG PO (08:29)
[2021-10-05] MEDS: FUROsemide 20 mg Tablet PO (08:29)
[2021-10-05] MEDS: potassium chloride ER 10 mEq Tablet PO (08:29)
[2021-10-05] MEDS: TRAMadol 50 mg Tablet PO (08:30)
[2021-10-05] MEDS: aspirin 81 mg EC Tablet PO (08:30)
[2021-10-05] MEDS: losartan 50 mg Tablet 100 MG PO (08:30)
[2021-10-05] MEDS: docusate sodium 100 mg Capsule PO (08:30)
[2021-10-05] MEDS: carvedilol 25 mg Tablet PO (08:30)
[2021-10-05] MEDS: gabapentin 300 mg Capsule 900 MG PO (08:30)
[2021-10-05] MEDS: finasteride 5 mg Tablet PO (08:30)
[2021-10-05 09:47] VITALS: BP 130/75; PULSE 71; RESP 13; O2SAT 95
--- NOTE | 2021-10-05 10:37 | PC.CHAP ---
Pastoral Care Encounter/Spiritual Assessment Type of Contact [] Declined shipping and receiving specialist visit [] Patient/Family/Request visit [] Outpatient visit [] Follow-up visit [] Physician referral [] Code/Alert [x] Routine visit [] Staff referral [] Actively dying [] Patient sleeping [] Family support [] [] Out of room [] Palliative care [] [x] Receiving care in room [] Pre-surgical visit [] Trauma [] Long length of stay [] ICU visit [] Other: Relational/Emotional Strength [x] Patient feels connected with others/family/visitors/staff [] Distress [] Loneliness/isolation [] Abandonment Spirituality of Patient [x] Person of Christin [] Attends Sabianism of their Christin [x] Believes in Prayer [] Reads Bible or Oriental Orthodox materials [] There are Spiritual issues to be addressed Bead Trimmer Interventions [x] Prayer [x] Active listening [x] Non-anxious presence [x] Spiritual/emotional support [] Crisis/trauma care [x] Spiritual counseling [] Bereavement support [] Provided bereavement packet [] Provided Bible/devotional materials [] Provided toy/stuffed animal, coloring book to patient or family member [] Provided Communion [] Anointing/[facility] [] Salvation [x] Completed spiritual assessment [] Other: Impact on Illness or Injury [] Angry [] Fearful [] Anxious [] Often cries [] Exhaustion [] Unable to work [] Unable to attend shinto [] Unable to walk/stand [] Unable to read [] Unable to drive [] Unable to eat/drink [] Unable to sleep [] Unable to be with family [] Patient intubated [] Other: Summary spinal change in meds feels good and is going home today Time spent with patient 10 mins
[2021-10-05 10:47] VITALS: BP 130/75; PULSE 71; RESP 13; O2SAT 95
--- NOTE | 2021-10-05 14:14 | P.DS_ITS ---
Discharge Providers Date of Admission: 10/04/21 15:46 Date of Discharge: October 05, 2021 Attending Provider at Admission: Manny Lowery DO Attending Provider at Discharge: Manny Lowery DO Primary Care Provider: Carlos Reddy NP Diagnoses at Discharge Discharge Diagnosis (1) Status post lumbar spinal fusion: Status: Acute Reason for Visit Reason for Visit: spinal stenosis lumbar w/neurogenic claudication Hospital Course Hospital Course uneventful Physical Exam Urinary Catheter Management: Rose: Cath Placed During This Visit: yes Reason for Continuing Indwelling Catheter: Perioperative Use in Selected Surgeries Urinary Catheter Date of Insertion: 10/04/21 Urinary Catheter Time of Insertion: 11:00 Discharge Data Studies Completed and Pending Completed Studies During Hospitalization Category Date Time Status XR lumbar spine 2-3V* 11640 Routine Exams 10/04/21 Completed Radiology Impressions Lumbar Spine X-Ray 10/04/21 00:00 IMPRESSION: Intraoperative lumbar spine as above. Laboratory Results WBC 6.1 10^3/uL (4.0-10.0) 10/04/21 09:12 RBC 4.42 10^6/uL (4.1-5.3) 10/04/21 09:12 Hgb 11.7 g/dL (11.7-16.6) 10/04/21 14:23 Hct 34.4 % (42.0-52.0) L 10/04/21 14:23 MCV 88.5 fl (80-94) 10/04/21 09:12 MCH 30.8 pg (28.0-34.0) 10/04/21 09:12 MCHC 34.8 g/dL (30.0-36.0) 10/04/21 09:12 RDW 12.9 % (12.1-15.1) 10/04/21 09:12 Plt Count 172 10^3/cmm (130-400) 10/04/21 09:12 MPV 11.1 fL (7.4-10.4) H 10/04/21 09:12 Neut % (Auto) 66.6 % 10/04/21 09:12 Lymph % (Auto) 20.2 % 10/04/21 09:12 Hunt % (Auto) 9.9 % 10/04/21 09:12 Eos % (Auto) 2.3 % 10/04/21 09:12 Baso % (Auto) 0.7 % 10/04/21 09:12 Neut # (Auto) 4.09 10^3/uL (1.8-7.7) 10/04/21 09:12 Lymph # (Auto) 1.2 10^3/uL (0.8-4.8) 10/04/21 09:12 Hunt # (Auto) 0.6 10^3/uL (0.2-0.9) 10/04/21 09:12 Eos # (Auto) 0.1 10^3/uL (0.0-0.8) 10/04/21 09:12 Baso # (Auto) 0.0 10^3/uL (0.0-0.1) 10/04/21 09:12 Nucleated RBC % (auto) 0 % 10/04/21 09:12 Nucleated RBCs # 0.0 /100WBC 10/04/21 09:12 Blood Type A Positive 10/04/21 09:12 Rho(D) Type Positive 10/04/21 09:12 Antibody Screen Negative 10/04/21 09:12 Vitals Last Vital Signs Temp 98.9 F 10/05/21 04:00 Pulse 71 10/05/21 10:47 Resp 13 10/05/21 10:47 BP 130/75 10/05/21 10:47 Pulse Ox 95 10/05/21 10:47 Discharge Plan Discharge Patient Disposition: Home Condition: Stable Prescriptions: New oxycodone 5 mg tablet 5 - 10 mg PO Q4H PRN (Reason: pain) 7 Days Qty: 42 0RF Continued tramadol 50 mg tablet 50 mg PO DAILY 0RF buspirone 15 mg tablet 15 mg PO BID 0RF clonidine HCl 0.2 mg tablet 0.2 mg PO BID PRN (Reason: Blood Pressure) 0RF furosemide 20 mg tablet 20 mg PO DAILY 0RF losartan 100 mg tablet 100 mg PO DAILY 0RF trazodone 150 mg tablet 150 mg PO DAILY 0RF potassium chloride 10 mEq capsule, extended release 10 meq PO DAILY 0RF ropinirole 2 mg tablet 2 mg PO DAILY 0RF sildenafil 100 mg tablet 100 mg PO DAILY PRN (Reason: sexual activity) Qty: 20 6RF Rx Instructions: Take 1 hour before intercourse, on empty stomach, max dose 100 mg, NO NITROGLYCERIN amlodipine 10 mg tablet 10 mg PO DAILY Qty: 90 0RF carvedilol 25 mg tablet 25 mg PO BID Qty: 180 0RF Rx Instructions: must administer with a meal/food (DME) Bone Growth Stimulator E0748 See Rx Instructions .Route .MEDSUPPLY Qty: 1 0RF Rx Instructions: As directed finasteride 5 mg tablet 5 mg PO DAILY Qty: 100 3RF oxycodone-acetaminophen 5-325 mg tablet 1 tab PO DAILY 0RF baclofen 20 mg tablet 20 mg PO TID 0RF gabapentin 300 mg capsule 900 mg PO DAILY 0RF Held aspirin [Aspir-81] 81 mg tablet,delayed release (DR/EC) 81 mg PO DAILY 0RF Hold Instructions: Resume on 11/02/21. Discharge Orders: Discharge Order (Routine); Ordered 10/05/21 Ordered By: Scotty Calvo Referrals: Manny Lowery DO [Physician] - 10/12/21 8:30 am Discharge Diet: Advance as tolerated Discharge Activity: Increase activity as tolerated Patient Instructions: Lumbar Spinal Fusion (DC), Opioid Safety Activity Restrictions/Additional Instructions: Thank you for choosing [facility] for your care! The following is a list of instructions, from your provider, to follow upon your discharge to ensure you have the optimal recovery from your recent injury or surgery. Follow-up care is a uhynh part of your treatment and safety. Be sure to make and go to all appointments and call your doctor if you are having problems. If you do not already have a follow-up appointment made, call Dr. Lowery's] office in the next 1-3 days to make follow up appointment for 1 weeks at [phone]. It is also a good idea to know your test results and keep a list of the medicines you take. Medications will be prescribed for you at your provider's discretion. These medications are to be used as instructed; if they are taken more often that prescribed they will not be refilled early and in most cases will not be refilled at all. > When a refill is needed, you should contact our office 2-3 business days before your prescription runs out. Medications will NOT be refilled by machine ironer providers after hours! > Many pain medications contain Tylenol (Acetaminophen). Do not consume more than 4,000 mg of Tylenol per day in total with any combination of medications. > Pain medications can cause constipation. Please use an over the counter stool softener as directed, while taking pain medications. Consult your local pharmacist with questions or recommendations on stool softeners. If constipation persists, contact our office or your primary care provider. > While under our care, you are not to receive pain medications or other controlled substances from any other provider unless our office is notified and approves. Any attempts to do so will result in refusal to prescribe any further pain medications and possible dismissal from our practice. ? Walking is essential for the healing process after surgery. We would like you to slowly advance your walking. This should be done on relatively flat clear ground (inside or out) or can be done on a treadmill. Remember this goal does not have to happen all at once, slowly increase your di stance and duration. This can be broken into more more than one walk per day as tolerated. Patients who walk as directed after surgery rarely require Physical Therapy. In the unlikely event this issue arises your provider will direct hospital staff to make the appropriate arrangements. ? No lifting over 5 pounds {a gallon of milk) or bending/twisting until further notice. Each of these activities places an unnecessary amount of stress onto the body and can impede the delicate healing process. > Instead of bending at the waist, keep your back straight and bend at the knees. > Instead of twisting your torso, keep your back straight and turn your entire body with your feet. ? You may sleep in any position which makes you comfortable. Many patients find comfort sleeping in a reclining chair. It is not abnormal to have difficulty sleeping for the first several weeks following your surgery. We recommend trying Benadry! or Tylenol PM as directed to help with your sleeping difficulties. Both medications are over the counter and available without prescription. ? NO SMOKING!!! Smoking dramatically increases the probability of developing postoperative wound infections. ? Common complaints after lumbar and/or thoracic spine surgery include, but are not limited to: numbness and/or tingling in the legs, pain around the incision and surrounding tissues, muscle spasms, or stiffness of the middle to low back. Contact our office if these symptoms persist or if an acute change occurs. ? No driving for the first 3-5days, and not while taking narcotics until seen at your follow-up appointment and cleared. There are no restrictions for riding on short trips, however if you take a longer trip, arrangements should be made to make regular stops to get out of the vehicle and stretch . ? Swelling is an unfortunate event that will take place with any surgery and is the primary source of your postoperative discomfort. While walking and regular approved activities helps control inflammation, there are additional steps you can take to minimize swelling. > Place ice over the surgical site and surrounding tissue for twenty minutes, followed by applying a low/medium heat (heating pad) for an additional twenty minutes every 1-2 hours as needed for painrelief. > You may use of over the counter anti-inflammatory medications (Ibuprofen, Motrin, Aleve, Advil, etc) as directed on the package label. These types of medicines will significantly reduce the amount of discomfort you experience after surgery from swelling. It should be noted that if you have and allergy to any of these medications, or a history of ulcers or kidney disease you should consult you primary care provider prior to starting these medications. Discharge Attestations Time Spent in Discharge Care*: less than 30 min Quality Metrics Clinical Quality Measures [ No reported AMI, CVA or VTE this stay] Coding Level of Care Code Acute Chg FW DC note Diagnoses Status post lumbar spinal fusion Z98.1
== END 2021-10-05 10:47 | disposition home or self-care (01) | DRG 455 ==
LOC: MEDSURG 15:46
PROVIDERS: Admitting Provider Orthopaedic Surgery; PCP Nurse Practitioner Family; Visit Provider Orthopaedic Surgery
PROC: 0SG30AJ Fusion of Lumbosacral Joint with Interbody Fusion Device, Posterior Approach, Anterior Column, Open Approach (ICD-10-PCS; CPT 22612; principal; 2021-10-04 09:50)
DX: M43.16 Spondylolisthesis, lumbar region (principal); M48.062 Spinal stenosis, lumbar region with neurogenic claudication; Z79.891 Long term (current) use of opiate analgesic
CPT/HCPCS: 36415; 51702; 72100; 76000; 85014; 85018; 85025; 86850; 86900; 96372; 97161; 97530; C1713; J0330; J0690; J1100; J1170; J1644; J1650; J1885; J2250; J2405; J2704; J2710; J3010; J3370; J3490; J7030; P9041

== ENCOUNTER 2021-10-15 06:07 | Emergency (ER) | payer BC, SELFPAY ==
[2021-10-15] VITALS (7 sets, daily range): BP systolic 147–163; BP diastolic 73; PULSE 58–64; RESP 16–20; TEMP 36.4; O2SAT 97–100; BMI 41.5
--- NOTE | 2021-10-15 06:48 | ED_ITS ---
HPI - Extremity Problem General: Chief complaint: Extremity Problem,Nontraumatic Stated complaint: right thigh pain Time Seen by Provider: 10/15/21 06:33 Source: patient and family (spouse) Mode of arrival: ambulatory Limitations: no limitations History of Present Illness: This patient who is status post a lumbar surgery with cage insertion on the sixth of this month presents to the emergency department because of concerns about lower extremity swelling and discomfort in his right lower leg. He has been relatively sedentary since his surgery although he is getting up and attending to activities of daily living for the most part. He also wears compression hose most of the day. Denies any fevers or chills, shortness of breath, chest pain etc. Take all his medications with the exception of his 81 mg of aspirin which they have not allowed him to restart yet. Has no history of DVT. No history of congestive heart failure. He states he has been sleeping predominantly in a recliner as it keeps him from rolling from side to side which is his normal practice when he sleeps in a regular bed. Denies any weakness, numbness, loss of bowel or bladder control etc. No injury. States he did have a history of superficial phlebitis in the past. MD Complaint: extremity pain and extremity swelling Location: right and lower extremity Associated symptoms: Reports no associated symptoms; Deny chest pain, fever(s) or rash Context: recent surgery/procedure Review of Systems Const: Denies: fever(s), chills or body aches Eyes: Denies: change in vision ENMT: Denies: throat pain or odynophagia Card: Denies: chest pain, palpitations or lightheadedness Resp: Denies: dyspnea, productive cough or non-productive cough GI: Denies: abdominal pain, nausea or vomiting : Denies: flank pain, difficulty urinating, dysuria or urinary frequency Musc: Denies: neck pain or muscle weakness Skin/Breast: Denies: rash Neuro: Denies: headache(s), numbness in extremities or weakness in extremities Psych: Denies: anxiety or depression PFSH ED PFSH: Medical History BPH (benign prostatic hyperplasia) BPH loc w urin obs/LUTS Erectile dysfunction HTN (hypertension) Hypercholesteremia Varicose veins of both lower extremities Surgical History S/P left knee arthroscopy Family History Father , at age 84 Natural Mother , at age 42 Cancer Other CAD (coronary artery disease) Social History Smoking and tobacco status: never smoked Alcohol intake: never Marital status: Current occupational status: employed History of recent travel: No Physical Exam Narrative: EXAM NARRATIVE: He is alert and cooperative in no acute distress. Speaks in goal-directed sentences. Const: COMMON NORMALS: no acute distress and patient oriented x3 GENERAL APPEARANCE: cooperative NUTRITIONAL APPEARANCE: overweight HENMT: COMMON NORMALS: normocephalic and moist oral mucous membranes HEAD & SCALP: normocephalic Eye: COMMON NORMALS: Equal, round and reactive pupils present and conjunctivae normal CONJUNCTIVA: Yes conjunctivae normal PUPIL: Yes Equal, round and reactive pupils present Neck/C-Spine: COMMON NORMALS: full ROM, no JVD and No carotid bruits Lymph: LYMPHATIC: no lymphadenopathy noted Chest: COMMONS NORMALS: normal palpation of entire chest wall Resp: COMMON NORMALS: normal respiratory effort, No use of accessory muscles and clear to auscultation bilaterally AUSCULTATION: clear to auscultation bilaterally Cardio: COMMON NORMALS: no JVD, regular rate, regular rhythm and No murmurs present (Cardio) RATE: regular rate RHYTHM: regular rhythm GI: COMMON NORMALS: Soft to palpation and non-tender PALPATION: Yes Soft to palpation Back/Pelvis: COMMON NORMALS: straight leg raise negative bilaterally LUMBAR SPINE/LOWER BACK: Yes ROM limited (slow changine positions) Extremity: COMMON NORMALS: full ROM, capillary refill normal and no calf tenderness NARRATIVE EXTREMITY EXAM: Both lower extremities are notable for 1+ pretibial edema. Has no joint erythema or joint enlargement. There is no calf tenderness to palpation compression. Negative Homans. He does have a very isolated area of erythema on the inner distal right thigh just proximal to the right knee. There is no proximal lymphangiitis or lymphadenopathy. Range of motion at knee ankle and hip are normal. No palpable cords. He has some superficial spider veins noted in the both lower extremities predominantly in the anterior medial calf region. Neuro: COMMON NORMALS: patient oriented x3, moves all extremities, no focal motor deficits, no sensory deficits noted and deep tendon reflexes 2+ bilaterally Psych: COMMON NORMALS: mental status grossly normal and cooperative Course ED course: Initial evaluation is reassuring. Initial bedside ultrasound does not have any findings to suggest DVT. We will go ahead and obtain a D-dimer to give additional negative predictive value. His amlodipine may also contribute to his lower extremity swelling and in addition to his postsurgical inactivity. A small patch of localized tenderness and erythema may be due to a superficial phlebitis does not appear to be cellulitis at this time. Reevaluation(s): Reevaluation #1: Portable bedside ultrasound use to visualize venous system of the right lower extremity. Using linear probe the popliteal venous system was visualized at the trifurcation. It appeared to be fully compressible. The deep femoral superficial femoral vessels were also visualized in the upper thigh which were fully compressible. No evidence of signs of deep venous thrombosis at this time. Reevaluation #2: D-dimer is significantly elevated therefore we will proceed with formal venous Doppler. Time: 07:44 Vital Signs: Vital signs: Vital Signs Temperature 97.6 F 10/15/21 06:11 Pulse Rate 59 L 10/15/21 08:30 Respiratory Rate 16 10/15/21 09:44 Blood Pressure 147/73 10/15/21 07:37 Pulse Oximetry 100 10/15/21 09:44 MDM - Extremity (Nontraumatic) Medical Decision Making Patient status post lumbar surgery with concerns about possible DVT presented to the emergency department was evaluated to include both informal bedside ultrasound and formal venous Doppler ultrasound. Latter being performed due to an elevation in D-dimer. His evaluation at this time is not suggestive of deep venous thrombosis. He does have edema which I think is probably a combination of immobility of relative nature as well as probably exacerbated by his use of amlodipine. No stigmata to suggest congestive heart failure etc. at this time. He also has been wearing knee-high support hose and there is some thought that perhaps some of the upper elastic of the support hose is irritating the back portion of his proximal lower leg. No evidence of cellulitis or other concern at this time either. I discussed and shared findings or implications with both patient and spouse. They acknowledged and voiced understanding of our discussion and were appreciative of care. He is stable to be discharged with c lose follow-up. Turn precautions were discussed. Medical Records I reviewed the patient's medical records. Lab Data I reviewed the patient's lab results. : 10/15/21 06:55 10/15/21 06:55 Radiology Impressions Venous Duplex 10/15/21 07:42 IMPRESSION: No evidence of deep vein thrombosis. Laboratory Results WBC 8.0 10^3/uL (4.0-10.0) 10/15/21 06:55 RBC 3.02 10^6/uL (4.1-5.3) L 10/15/21 06:55 Hgb 9.1 g/dL (11.7-16.6) L 10/15/21 06:55 Hct 29.0 % (42.0-52.0) L 10/15/21 06:55 MCV 96.0 fl (80-94) H 10/15/21 06:55 MCH 30.1 pg (28.0-34.0) 10/15/21 06:55 MCHC 31.4 g/dL (30.0-36.0) 10/15/21 06:55 RDW 13.2 % (12.1-15.1) 10/15/21 06:55 Plt Count 300 10^3/cmm (130-400) 10/15/21 06:55 MPV 10.6 fL (7.4-10.4) H 10/15/21 06:55 Neut % (Auto) 69.6 % 10/15/21 06:55 Lymph % (Auto) 18.8 % 10/15/21 06:55 [place] % (Auto) 7.6 % 10/15/21 06:55 Eos % (Auto) 2.1 % 10/15/21 06:55 Baso % (Auto) 0.5 % 10/15/21 06:55 Neut # (Auto) 5.58 10^3/uL (1.8-7.7) 10/15/21 06:55 Lymph # (Auto) 1.5 10^3/uL (0.8-4.8) 10/15/21 06:55 [place] # (Auto) 0.6 10^3/uL (0.2-0.9) 10/15/21 06:55 Eos # (Auto) 0.2 10^3/uL (0.0-0.8) 10/15/21 06:55 Baso # (Auto) 0.0 10^3/uL (0.0-0.1) 10/15/21 06:55 Nucleated RBC % (auto) 0 % 10/15/21 06:55 Nucleated RBCs # 0.0 /100WBC 10/15/21 06:55 D-Dimer 2.80 ug/mIFEU (0-0.59) H 10/15/21 06:55 Sodium 142 mmol/L (136-145) 10/15/21 06:55 Potassium 4.2 mmol/L (3.5-5.1) 10/15/21 06:55 Chloride 106 mmol/L (98-107) 10/15/21 06:55 Carbon Dioxide 29 mmol/L (22-29) 10/15/21 06:55 Anion Gap 11.2 (5-19) 10/15/21 06:55 BUN 14 mg/dL (8-23) 10/15/21 06:55 Creatinine 0.9 mg/dL (0.7-1.2) 10/15/21 06:55 GFR Calculation 84.7 mL/min (90-130) L 10/15/21 06:55 Glucose 111 mg/dL (65-115) 10/15/21 06:55 Calculated Osmolality 295 mOsm/kg (285-295) 10/15/21 06:55 Calcium 8.8 mg/dL (8.5-10.5) 10/15/21 06:55 Discharge Plan Discharge Patient Disposition: Home Clinical Impression: Lower extremity edema, Varicose veins of both lower extremities Condition: Stable Prescriptions: No Action tramadol 50 mg tablet 50 mg PO DAILY 0RF buspirone 15 mg tablet 15 mg PO BID 0RF clonidine HCl 0.2 mg tablet 0.2 mg PO BID PRN (Reason: Blood Pressure) 0RF aspirin [Aspir-81] 81 mg tablet,delayed release (DR/EC) 81 mg PO DAILY 0RF Hold Instructions: Resume on 11/02/21. furosemide 20 mg tablet 20 mg PO DAILY 0RF losartan 100 mg tablet 100 mg PO DAILY 0RF trazodone 150 mg tablet 150 mg PO DAILY 0RF potassium chloride 10 mEq capsule, extended release 10 meq PO DAILY 0RF ropinirole 2 mg tablet 2 mg PO DAILY 0RF sildenafil 100 mg tablet 100 mg PO DAILY PRN (Reason: sexual activity) Qty: 20 6RF Rx Instructions: Take 1 hour before intercourse, on empty stomach, max dose 100 mg, NO NITROGLYCERIN amlodipine 10 mg tablet 10 mg PO DAILY Qty: 90 0RF carvedilol 25 mg tablet 25 mg PO BID Qty: 180 0RF Rx Instructions: must administer with a meal/food (DME) Bone Growth Stimulator E0748 See Rx Instructions .Route .MEDSUPPLY Qty: 1 0RF Rx Instructions: As directed finasteride 5 mg tablet 5 mg PO DAILY Qty: 100 3RF oxycodone-acetaminophen 5-325 mg tablet 1 tab PO DAILY 0RF baclofen 20 mg tablet 20 mg PO TID 0RF gabapentin 300 mg capsule 900 mg PO DAILY 0RF Discharge Orders: Discharge ED (Routine); Ordered 10/15/21 Ordered By: Roshan Conway Referrals: Carlos Reddy NP [Primary Care Provider] - Patient Instructions: Opioid Safety Activity Restrictions/Additional Instructions: Continue all postoperative instructions. Increase mobility and ambulation within the constraint of your postoperative instructions but try to avoid sitting for prolonged periods of time. Continue with your compression hose unless a pressure proved to be more irritating to your legs. You may use moist heat to the area discomfort in your right leg. Should you have increasing swelling, increasing pain, fevers shortness of breath or any other concerns return to this or the nearest emergency department. Coding Level of Care Code ED Society Editor for Lion Britt Exam Comprehensive
[2021-10-15 07:20] LABS: Basophils % 0.5 %; Eosinophils # 0.2 10^3/uL (0.0-0.8); Eosinophils % 2.1 %; Hemoglobin 9.1 g/dL (11.7-16.6); Lymphocytes # 1.5 10^3/uL (0.8-4.8); Lymphocytes % 18.8 %; Mean Corpuscular HGB Conc 31.4 g/dL (30.0-36.0); Mean Corpuscular Hemoglobin 30.1 pg (28.0-34.0); Mean Platelet Volume 10.6 fL (7.4-10.4); Monocytes # 0.6 10^3/uL (0.2-0.9); Monocytes % 7.6 %; Neutrophils # 5.58 10^3/uL (1.8-7.7); Neutrophils % 69.6 %; Nucleated Red Blood Cells % 0 %; Platelet Count 300 10^3/cmm (130-400); Red Blood Count 3.02 10^6/uL (4.1-5.3); Red Cell Distribution Width 13.2 % (12.1-15.1)
--- NOTE | 2021-10-15 07:30 | PC.NURSE ---
PT assessed. PT noted to have redness and increased warmth of lower right extremity. D-Dimer elevated. PT and family member verbilized no needs at this time. PT sat 99% on RA. Respirations normal depth and rate
[2021-10-15 07:39] LABS: Anion Gap 11.2 (5-19); Blood Urea Nitrogen 14 mg/dL (8-23); Calcium 8.8 mg/dL (8.5-10.5); Carbon Dioxide 29 mmol/L (22-29); Chloride 106 mmol/L (98-107); Glomerular Filtration Rate 84.7 mL/min (90-130); Glucose 111 mg/dL (65-115); Osmolality Calculated 295 mOsm/kg (285-295); Potassium 4.2 mmol/L (3.5-5.1); Sodium 142 mmol/L (136-145)
--- NOTE | 2021-10-15 07:42 | USR_ITS ---
PROCEDURE INFORMATION: Exam: US Duplex Right Lower Extremity Veins, Limited Exam date and time: 10/15/2021 8:08 AM Age: 66 years old Clinical indication: Pain; Leg, lower; Right; Additional info: Dvt-elevated d-dimer TECHNIQUE: Imaging protocol: Real-time Duplex ultrasound of the Right Lower Extremity with 2-D byrne scale, color Doppler flow and spectral waveform analysis with image documentation. Limited exam was focused on the right lower extremity veins. Total images: 26 COMPARISON: US Renal Kidney Structu* [id number] 10/28/2017 7:16 AM FINDINGS: Right deep veins: Unremarkable. The common femoral, femoral, proximal profunda femoral and popliteal veins are patent without thrombus. Normal Doppler waveforms. Normal compressibility and/or augmentation response. Right superficial veins: Unremarkable. Saphenofemoral junction is patent without thrombus. Soft tissues: Mild subcutaneous edema noted within the calf. US/[place] [id number] IMPRESSION: No evidence of deep vein thrombosis.
--- NOTE | 2021-10-15 07:44 | PC.NURSE ---
PT assessed. PT noted to have redness and increased warmth of right lower extremity. D-Dimer elevated. PT and family member verbalized no needs at this time. PT satting 99% RA. Respirations normal depth and effort.
[2021-10-15] MEDS: oxyCODONE-APAP 5-325 mg Tablet 1 TAB PO (09:44)
== END 2021-10-15 10:07 | disposition home or self-care (01) ==
PROVIDERS: Emergency Provider Emergency Medicine; PCP Nurse Practitioner Family
DX: I83.93 Asymptomatic varicose veins of bilateral lower extremities (principal); Z79.82 Long term (current) use of aspirin; R60.0 Localized edema; Z98.1 Arthrodesis status; Z79.891 Long term (current) use of opiate analgesic
CPT/HCPCS: 80048; 85025; 85378; 93971; 99284

== ENCOUNTER → 2021-10-31 09:31 | Outpatient (BNVA) | payer BC, MEDICARE, SELFPAY | PROVIDERS: PCP Nurse Practitioner Family; Visit Provider Nurse Practitioner Family | DX: N40.1 Benign prostatic hyperplasia with lower urinary tract symptoms (principal); N52.1 Erectile dysfunction due to diseases classified elsewhere | CPT/HCPCS: 81003 ==

== ENCOUNTER → 2021-11-16 09:30 | Outpatient (BNVA) | payer BC, MEDICARE, SELFPAY | PROVIDERS: PCP Nurse Practitioner Family; Visit Provider Orthopaedic Surgery | DX: Z98.1 Arthrodesis status (principal) | CPT/HCPCS: 72100 ==

== ENCOUNTER → 2021-12-28 09:14 | Outpatient (BNVA) | payer BC, MEDICARE, SELFPAY | PROVIDERS: PCP Nurse Practitioner Family; Visit Provider Orthopaedic Surgery | DX: Z98.1 Arthrodesis status (principal) | CPT/HCPCS: 72100 ==

== ENCOUNTER 2022-01-08 14:55 | Emergency (ER) | payer MEDICARE, BC, SELFPAY ==
[2022-01-08 15:26] VITALS: BP 185/93; PULSE 58; RESP 18; TEMP 37.1; O2SAT 96
--- NOTE | 2022-01-08 16:03 | XRR_ITS ---
PROCEDURE INFORMATION: Exam: XR Chest Exam date and time: 01/08/2022 4:26 PM Age: 66 years old Clinical indication: Shortness of breath; Additional info: SOB TECHNIQUE: Imaging protocol: Radiologic exam of the chest. Views: 1 view. COMPARISON: CR Chest 1 [place] [id number] 08/26/2018 9:29 PM FINDINGS: Lungs: Lungs still clear. Pleural spaces: Still no pneumothorax or apparent pleural fluid. Heart/Mediastinum: Continued cardiomegaly. Vasculature: Continued aortic elongation. Bones/joints: No previous demonstration of the fixation structures in the cervical spine. Continued relatively small 1st ribs. No suggestion of acute bony disease. XR/XR chest 1V portable [id number] IMPRESSION: No acute findings. Continued cardiomegaly and aortic elongation.
--- NOTE | 2022-01-08 16:04 | ECG_ITS ---
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 Measurements Intervals [place] Rate: 54 P: 43 NV: 233 QRS: 25 QRSD: 100 T: 43 QT: 414 QTc: 395 Interpretive Statements SINUS BRADYCARDIA WITH FIRST DEGREE AV BLOCK Compared to ECG 03/24/2018 11:06:18 First degree AV block now present Sinus rhythm no longer present Electronically Signed On 01-08-2022 18:20:31 CDT by Tal Garcia M.D. [email or web address]
--- NOTE | 2022-01-08 16:09 | W.ED.WEAKNES ---
Documented by User: VINH Richardson 01/09/22 12:08 HPI - Weakness General: Chief complaint: Weakness Stated complaint: not feeling right Time Seen by Provider: 01/08/22 15:34 History of Present Illness: Patient is a 66-year-old male who comes to the ED with generalized weakness and shortness of breath. Past medical history of obstructive sleep apnea, hypertension and hypercholesterolemia. Patient had lumbar fusion surgery back on October 04, 2021. Generalized weakness started approximately a week ago. Over the last 48 hours he started having shortness of breath. It worsens after he is lying down flat or up and moving around. Denies any chest pain or palpitations. He endorses having some body aches and states he just feels like crap. Denies any fevers, nausea/vomiting, abdominal pain, cough, bladder or bowel symptoms. Associated symptoms: Denies chest pain, chills, dysuria, fever(s), headache(s), nausea or vomiting Review of Systems Const: Reports: body aches, fatigue and malaise; Denies: fever(s) or chills Eyes: Denies: change in vision or eye discomfort ENMT: Denies: throat pain, odynophagia, nasal discharge or nasal congestion Card: Reports: orthopnea; Denies: chest pain, palpitations, edema, swelling of feet/ankles or dyspnea on exertion Resp: Reports: dyspnea; Denies: productive cough or non-productive cough GI: Denies: abdominal pain, nausea, vomiting, diarrhea, constipation or hematochezia : Denies: flank pain, difficulty urinating, dysuria or hematuria Musc: Denies: neck pain, back pain or extremity swelling Skin/Breast: Denies: rash or new lesions Neuro: Denies: headache(s), numbness in extremities or weakness in extremities PFSH ED PFSH: Medical History BPH (benign prostatic hyperplasia) BPH loc w urin obs/LUTS Erectile dysfunction HTN (hypertension) Hypercholesteremia Varicose veins of both lower extremities Surgical History S/P left knee arthroscopy Family History Father , at age 84 Natural Mother , at age 42 Cancer Other CAD (coronary artery disease) Social History Smoking and tobacco status: never smoked Alcohol intake: never Marital status: Current occupational status: employed and disabled History of recent travel: No Physical Exam Const: COMMON NORMALS: patient oriented x3 HENMT: COMMON NORMALS: normocephalic HEAD & SCALP: normocephalic MOUTH: Normal oral and palatal mucosa present THROAT: posterior oropharynx normal and uvula midline Neck/C-Spine: COMMON NORMALS: supple GENERAL: Yes normal visual inspection Resp: COMMON NORMALS: normal respiratory effort, No retractions, No use of accessory muscles and clear to auscultation bilaterally AUSCULTATION: clear to auscultation bilaterally Cardio: COMMON NORMALS: regular rate, regular rhythm, S1 normal heart sound present, S2 normal heart sound present, No gallops present (Cardio), No clicks present (Cardio), No murmurs present (Cardio) and Peripheral pulses 2+ throughout RATE: regular rate RHYTHM: regular rhythm HEART SOUNDS: S1 normal heart sound present and S2 normal heart sound present PERIPHERAL PULSES: Peripheral pulses 2+ throughout GI: COMMON NORMALS: Normal to inspection, nondistended, normoactive bowel sounds present, Soft to palpation, non-tender and no masses PALPATION: Yes Soft to palpation : COMMON NORMALS: Yes no CVA tenderness BLADDER/KIDNEY EXAM: Yes no CVA tenderness Back/Pelvis: COMMON NORMALS: no CVA tenderness Extremity: COMMON NORMALS: normal to inspection Neuro: COMMON NORMALS: patient oriented x3 and moves all extremities Skin: GENERAL SKIN EXAM: dry skin Course Vital Signs: Vital signs: Vital Signs Temperature 98.7 F 01/08/22 15:26 Pulse Rate 58 L 01/08/22 15:26 Respiratory Rate 18 01/08/22 15:26 Blood Pressure 185/93 01/08/22 15:26 Pulse Oximetry 96 01/08/22 15:26 MDM - Weakness Lab Data I reviewed the patient's lab results. : 01/08/22 18:11 01/08/22 16:24 Radiology Impressions Chest X-Ray 01/08/22 16:03 IMPRESSION: No acute findings. Continued cardiomegaly and aortic elongation. Laboratory Results WBC 7.2 10^3/uL (4.0-10.0) 01/08/22 18:11 Corrected WBC Cancelled 01/08/22 16:24 RBC 4.53 10^6/uL (4.1-5.3) 01/08/22 18:11 Hgb 12.5 g/dL (11.7-16.6) 01/08/22 18:11 Hct 38.6 % (42.0-52.0) L 01/08/22 18:11 MCV 85.2 fl (80-94) 01/08/22 18:11 MCH 27.6 pg (28.0-34.0) L 01/08/22 18:11 MCHC 32.4 g/dL (30.0-36.0) 01/08/22 18:11 RDW 13.9 % (12.1-15.1) 01/08/22 18:11 Plt Count 172 10^3/cmm (130-400) 01/08/22 18:11 MPV 11.8 fL (7.4-10.4) H 01/08/22 18:11 Gran % Cancelled 01/08/22 16:24 Neut % (Auto) 64.8 % 01/08/22 18:11 Lymph % (Auto) 22.9 % 01/08/22 18:11 Hunt % (Auto) 8.5 % 01/08/22 18:11 Eos % (Auto) 2.9 % 01/08/22 18:11 Baso % (Auto) 0.6 % 01/08/22 18:11 Neut # (Auto) 4.66 10^3/uL (1.8-7.7) 01/08/22 18:11 Lymph # (Auto) 1.7 10^3/uL (0.8-4.8) 01/08/22 18:11 Hunt # (Auto) 0.6 10^3/uL (0.2-0.9) 01/08/22 18:11 Eos # (Auto) 0.2 10^3/uL (0.0-0.8) 01/08/22 18:11 Baso # (Auto) 0.0 10^3/uL (0.0-0.1) 01/08/22 18:11 Absolute Gran (auto) Cancelled 01/08/22 16:24 Nucleated RBC % (auto) 0 % 01/08/22 18:11 Nucleated RBCs # 0.0 /100WBC 01/08/22 18:11 D-Dimer 0.64 ug/mIFEU (0-0.59) H 01/08/22 18:11 Sodium 141 mmol/L (136-145) 01/08/22 16:24 Potassium 4.3 mmol/L (3.5-5.1) 01/08/22 16:24 Chloride 106 mmol/L (98-107) 01/08/22 16:24 Carbon Dioxide 22 mmol/L (22-29) 01/08/22 16:24 Anion Gap 17.3 (5-19) 01/08/22 16:24 BUN 19 mg/dL (8-23) 01/08/22 16:24 Creatinine 1.1 mg/dL (0.7-1.2) 01/08/22 16:24 GFR Calculation 67.2 mL/min (90-130) L 01/08/22 16:24 Glucose 91 mg/dL (65-115) 01/08/22 16:24 Calculated Osmolality 294 mOsm/kg (285-295) 01/08/22 16:24 Calcium 9.2 mg/dL (8.5-10.5) 01/08/22 16:24 Total Bilirubin 0.3 mg/dL (0.15-1.2) 01/08/22 16:24 AST 24 U/L (0-40) 01/08/22 16:24 ALT 21 U/L (0-41) 01/08/22 16:24 Alkaline Phosphatase 70 IU/L (40-130) 01/08/22 16:24 Troponin T Baseline 18 ng/L (0-15) H 01/08/22 16:24 Troponin T 120 Minute 17.20 ng/L (0-15) H 01/08/22 18:11 Delta Troponin T -0.80 ABS# (0-10) L 01/08/22 18:11 NT-Pro-B Natriuret Pep 180 pg/mL (0-125) H 01/08/22 16:24 Total Protein 7.3 g/dL (6.6-8.7) 01/08/22 16:24 Albumin 4.2 g/dL (3.5-5.2) 01/08/22 16:24 Globulin 3.1 g/dL (1.3-4.6) 01/08/22 16:24 Discharge Plan Discharge Patient Disposition: Home Clinical Impression: Acute dyspnea CHF (congestive heart failure) Qualifiers: Heart failure type: unspecified Heart failure chronicity: chronic Qualified Code(s): I50.9 - Heart failure, unspecified Condition: Stable Prescriptions: No Action tramadol 50 mg tablet 50 mg PO DAILY 0RF buspirone 15 mg tablet 15 mg PO BID 0RF clonidine HCl 0.2 mg tablet 0.2 mg PO BID PRN (Reason: Blood Pressure) 0RF aspirin [Aspir-81] 81 mg tablet,delayed release (DR/EC) 81 mg PO DAILY 0RF Hold Instructions: Resume on 11/02/21. furosemide 20 mg tablet 20 mg PO DAILY 0RF losartan 100 mg tablet 100 mg PO DAILY 0RF trazodone 150 mg tablet 150 mg PO DAILY 0RF potassium chloride 10 mEq capsule, extended release 10 meq PO DAILY 0RF ropinirole 2 mg tablet 2 mg PO DAILY 0RF sildenafil 100 mg tablet 100 mg PO DAILY PRN (Reason: sexual activity) Qty: 20 6RF Rx Instructions: Take 1 hour before intercourse, on empty stomach, max dose 100 mg, NO NITROGLYCERIN oxycodone-acetaminophen 5-325 mg tablet 1 tab PO Q4H PRN (Reason: pain) 7 Days Qty: 40 0RF amlodipine 10 mg tablet 10 mg PO DAILY Qty: 90 0RF finasteride 5 mg tablet 5 mg PO DAILY Qty: 100 3RF carvedilol 25 mg tablet 25 mg PO BID Qty: 60 0RF Rx Instructions: Make follow-up for further refills (DME) Bone Growth Stimulator E0748 See Rx Instructions .Route .MEDSUPPLY Qty: 1 0RF Rx Instructions: As directed. baclofen 20 mg tablet 20 mg PO TID 0RF gabapentin 300 mg capsule 900 mg PO DAILY 0RF Discharge Orders: Discharge ED (Routine); Ordered 01/08/22 Ordered By: Ari Gillespie Referrals: Ranjit Ness MD [Primary Care Provider] - Discharge Diet: Usual diet Discharge Activity: Increase activity as tolerated Activity Restrictions/Additional Instructions: Increase furosemide and potassium to 1 tablet twice a day for the next 3 days. Continue with routine medications as directed. Follow-up with primary care for possible repeat sleep study and evaluation of CPAP machine. Return to ER for new concerns such as high fever greater than 100.4, worsening shortness of breath, or chest pain. Sign Out Sign Out Data: Patient Sign Out occurred on 01/08/22 at 17:20. Patient's care was discussed, and care was transferred from to Ari Gillespie. Coding Level of Care Code ED Certified Dietary Manager for Chg Fwd Exam Comprehensive Documented by User: EMILEE Avalos 01/08/22 19:23 HPI - Weakness General: Chief complaint: Weakness Stated complaint: not feeling right Time Seen by Provider: 01/08/22 15:34 PFSH ED PFSH: Medical History BPH (benign prostatic hyperplasia) BPH loc w urin obs/LUTS Erectile dysfunction HTN (hypertension) Hypercholesteremia Varicose veins of both lower extremities Surgical History S/P left knee arthroscopy Family History Father , at age 84 Natural Mother , at age 42 Cancer Other CAD (coronary artery disease) Social History Smoking and tobacco status: never smoked Alcohol intake: never Marital status: Current occupational status: employed and disabled History of recent travel: No Course Vital Signs: Vital signs: Vital Signs Temperature 98.7 F 01/08/22 15:26 Pulse Rate 58 L 01/08/22 15:26 Respiratory Rate 18 01/08/22 15:26 Blood Pressure 185/93 01/08/22 15:26 Pulse Oximetry 96 01/08/22 15:26 MDM - Weakness Medical Decision Making 66-year-old male comes in today with increased shortness of breath. Patient reports increased difficulty breathing when lying supine, and with exertion. Patient does have some +1 to +2 pitting edema to lower extremities. Lungs have good air movement throughout. Vital signs note a elevation of blood pressure 185 systolic, pulse rate was 58, oxygen saturation was 96 on room air. Differential diagnosis includes but not limited to CHF, ACS, peripheral edema, heat edema. CBC CMP were unremarkable. D-dimer was 0.64 which was down from 2.22 months ago. Patient does not seem to have a pulmonary emboli on clinical exam. Troponin was negative. Believe the patient might just have some heat edema versus a increase in his CHF. His BNP did increase from the low 100s to 180. Recommended increasing his furosemide to twice a day for the next 3 days. Patient was also given 1 IM injection of furosemide in the ER. Patient reported understanding of care plan and need for follow-up or return. Patient also understand that follow-up with primary care for possible repeat sleep study and oxygen evaluation. Lab Data : 01/08/22 18:11 01/08/22 16:24 Radiology Impressions Chest X-Ray 01/08/22 16:03 IMPRESSION: No acute findings. Continued cardiomegaly and aortic elongation. Laboratory Results WBC 7.2 10^3/uL (4.0-10.0) 01/08/22 18:11 Corrected WBC Cancelled 01/08/22 16:24 RBC 4.53 10^6/uL (4.1-5.3) 01/08/22 18:11 Hgb 12.5 g/dL (11.7-16.6) 01/08/22 18:11 Hct 38.6 % (42.0-52.0) L 01/08/22 18:11 MCV 85.2 fl (80-94) 01/08/22 18:11 MCH 27.6 pg (28.0-34.0) L 01/08/22 18:11 MCHC 32.4 g/dL (30.0-36.0) 01/08/22 18:11 RDW 13.9 % (12.1-15.1) 01/08/22 18:11 Plt Count 172 10^3/cmm (130-400) 01/08/22 18:11 MPV 11.8 fL (7.4-10.4) H 01/08/22 18:11 Gran % Cancelled 01/08/22 16:24 Neut % (Auto) 64.8 % 01/08/22 18:11 Lymph % (Auto) 22.9 % 01/08/22 18:11 Hunt % (Auto) 8.5 % 01/08/22 18:11 Eos % (Auto) 2.9 % 01/08/22 18:11 Baso % (Auto) 0.6 % 01/08/22 18:11 Neut # (Auto) 4.66 10^3/uL (1.8-7.7) 01/08/22 18:11 Lymph # (Auto) 1.7 10^3/uL (0.8-4.8) 01/08/22 18:11 Hunt # (Auto) 0.6 10^3/uL (0.2-0.9) 01/08/22 18:11 Eos # (Auto) 0.2 10^3/uL (0.0-0.8) 01/08/22 18:11 Baso # (Auto) 0.0 10^3/uL (0.0-0.1) 01/08/22 18:11 Absolute Gran (auto) Cancelled 01/08/22 16:24 Nucleated RBC % (auto) 0 % 01/08/22 18:11 Nucleated RBCs # 0.0 /100WBC 01/08/22 18:11 D-Dimer 0.64 ug/mIFEU (0-0.59) H 01/08/22 18:11 Sodium 141 mmol/L (136-145) 01/08/22 16:24 Potassium 4.3 mmol/L (3.5-5.1) 01/08/22 16:24 Chloride 106 mmol/L (98-107) 01/08/22 16:24 Carbon Dioxide 22 mmol/L (22-29) 01/08/22 16:24 Anion Gap 17.3 (5-19) 01/08/22 16:24 BUN 19 mg/dL (8-23) 01/08/22 16:24 Creatinine 1.1 mg/dL (0.7-1.2) 01/08/22 16:24 GFR Calculation 67.2 mL/min (90-130) L 01/08/22 16:24 Glucose 91 mg/dL (65-115) 01/08/22 16:24 Calculated Osmolality 294 mOsm/kg (285-295) 01/08/22 16:24 Calcium 9.2 mg/dL (8.5-10.5) 01/08/22 16:24 Total Bilirubin 0.3 mg/dL (0.15-1.2) 01/08/22 16:24 AST 24 U/L (0-40) 01/08/22 16:24 ALT 21 U/L (0-41) 01/08/22 16:24 Alkaline Phosphatase 70 IU/L (40-130) 01/08/22 16:24 Troponin T Baseline 18 ng/L (0-15) H 01/08/22 16:24 Troponin T 120 Minute 17.20 ng/L (0-15) H 01/08/22 18:11 Delta Troponin T -0.80 ABS# (0-10) L 01/08/22 18:11 NT-Pro-B Natriuret Pep 180 pg/mL (0-125) H 01/08/22 16:24 Total Protein 7.3 g/dL (6.6-8.7) 01/08/22 16:24 Albumin 4.2 g/dL (3.5-5.2) 01/08/22 16:24 Globulin 3.1 g/dL (1.3-4.6) 01/08/22 16:24 EKG Data EKG 1: EKG interpretation date: 01/08/22 EKG interpretation time: 17:37 Interpretation: EKG shows sinus bradycardia with first-degree AV block. Regular rate at [address] elevation or ectopy is noted. No prior exam was available at this time for comparison Discharge Plan Discharge Patient Disposition: Home Clinical Impression: Acute dyspnea CHF (congestive heart failure) Qualifiers: Heart failure type: unspecified Heart failure chronicity: chronic Qualified Code(s): I50.9 - Heart failure, unspecified Condition: Stable Prescriptions: No Action tramadol 50 mg tablet 50 mg PO DAILY 0RF buspirone 15 mg tablet 15 mg PO BID 0RF clonidine HCl 0.2 mg tablet 0.2 mg PO BID PRN (Reason: Blood Pressure) 0RF aspirin [Aspir-81] 81 mg tablet,delayed release (DR/EC) 81 mg PO DAILY 0RF Hold Instructions: Resume on 11/02/21. furosemide 20 mg tablet 20 mg PO DAILY 0RF losartan 100 mg tablet 100 mg PO DAILY 0RF trazodone 150 mg tablet 150 mg PO DAILY 0RF potassium chloride 10 mEq capsule, extended release 10 meq PO DAILY 0RF ropinirole 2 mg tablet 2 mg PO DAILY 0RF sildenafil 100 mg tablet 100 mg PO DAILY PRN (Reason: sexual activity) Qty: 20 6RF Rx Instructions: Take 1 hour before intercourse, on empty stomach, max dose 100 mg, NO NITROGLYCERIN oxycodone-acetaminophen 5-325 mg tablet 1 tab PO Q4H PRN (Reason: pain) 7 Days Qty: 40 0RF amlodipine 10 mg tablet 10 mg PO DAILY Qty: 90 0RF finasteride 5 mg tablet 5 mg PO DAILY Qty: 100 3RF carvedilol 25 mg tablet 25 mg PO BID Qty: 60 0RF Rx Instructions: Make follow-up for further refills (DME) Bone Growth Stimulator E0748 See Rx Instructions .Route .MEDSUPPLY Qty: 1 0RF Rx Instructions: As directed. baclofen 20 mg tablet 20 mg PO TID 0RF gabapentin 300 mg capsule 900 mg PO DAILY 0RF Discharge Orders: Discharge ED (Routine); Ordered 01/08/22 Ordered By: Ari Gillespie Referrals: Ranjit Ness MD [Primary Care Provider] - Discharge Diet: Usual diet Discharge Activity: Increase activity as tolerated Activity Restrictions/Additional Instructions: Increase furosemide and potassium to 1 tablet twice a day for the next 3 days. Continue with routine medications as directed. Follow-up with primary care for possible repeat sleep study and evaluation of CPAP machine. Return to ER for new concerns such as high fever greater than 100.4, worsening shortness of breath, or chest pain. Sign Out Sign Out Data: Patient Sign Out occurred on 01/08/22 at 17:20. Patient's care was discussed, and care was transferred from to Ari Gillespie. Coding Level of Care Code ED Certified Dietary Manager for Lion Fwd Exam Comprehensive
[2022-01-08 17:58] LABS: Alanine Aminotransferase 21 U/L (0-41); Albumin Level 4.2 g/dL (3.5-5.2); Alkaline Phosphatase 70 IU/L (40-130); Blood Urea Nitrogen 19 mg/dL (8-23); Calcium 9.2 mg/dL (8.5-10.5); Carbon Dioxide 22 mmol/L (22-29); Chloride 106 mmol/L (98-107); Globulin 3.1 g/dL (1.3-4.6); Glomerular Filtration Rate 67.2 mL/min (90-130); Glucose 91 mg/dL (65-115); NT Pro B Type Natriuretic Pept 180 pg/mL (0-125); Osmolality Calculated 294 mOsm/kg (285-295); Sodium 141 mmol/L (136-145); Total Bilirubin 0.3 mg/dL (0.15-1.2); Total Protein 7.3 g/dL (6.6-8.7)
[2022-01-08 18:00] LABS: Anion Gap 17.3 (5-19); Aspartate Amino Transferase 24 U/L (0-40); Potassium 4.3 mmol/L (3.5-5.1)
--- NOTE | 2022-01-08 18:04 | ECG_ITS ---
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 Measurements Intervals [place] Rate: 52 P: 48 CA: 231 QRS: 32 QRSD: 98 T: 54 QT: 419 QTc: 393 Interpretive Statements SINUS BRADYCARDIA WITH FIRST DEGREE AV BLOCK POSSIBLE LEFT ATRIAL ENLARGEMENT [-0.1mV P-WAVE IN V1/V2] Compared to ECG 01/08/2022 17:21:04 No significant changes Electronically Signed On 01-08-2022 18:22:53 CDT by Tal Garcia M.D. [id number]
[2022-01-08 18:15] LABS: Troponin(5th) Baseline 18 ng/L (0-15)
[2022-01-08 18:41] LABS: Basophils % 0.6 %; Eosinophils # 0.2 10^3/uL (0.0-0.8); Eosinophils % 2.9 %; Hematocrit 38.6 % (42.0-52.0); Hemoglobin 12.5 g/dL (11.7-16.6); Lymphocytes # 1.7 10^3/uL (0.8-4.8); Lymphocytes % 22.9 %; Mean Corpuscular HGB Conc 32.4 g/dL (30.0-36.0); Mean Corpuscular Hemoglobin 27.6 pg (28.0-34.0); Mean Corpuscular Volume 85.2 fl (80-94); Mean Platelet Volume 11.8 fL (7.4-10.4); Monocytes # 0.6 10^3/uL (0.2-0.9); Monocytes % 8.5 %; Neutrophils # 4.66 10^3/uL (1.8-7.7); Neutrophils % 64.8 %; Nucleated Red Blood Cells % 0 %; Platelet Count 172 10^3/cmm (130-400); Red Blood Count 4.53 10^6/uL (4.1-5.3); Red Cell Distribution Width 13.9 % (12.1-15.1); White Blood Count 7.2 10^3/uL (4.0-10.0)
[2022-01-08 19:04] LABS: D Dimer 0.64 ug/mIFEU (0-0.59)
[2022-01-08] MEDS: FUROsemide 10 mg/mL SDV 4mL 40 MG IM (19:45)
== END 2022-01-08 19:48 | disposition home or self-care (01) ==
PROVIDERS: Physician Assistant; Emergency Provider Nurse Practitioner Family; PCP Family Medicine
DX: R06.00 Dyspnea, unspecified (principal); I11.0 Hypertensive heart disease with heart failure; I50.9 Heart failure, unspecified; Z79.82 Long term (current) use of aspirin
CPT/HCPCS: 71045; 80053; 83880; 84484; 85025; 85378; 93005; 96372; 99285; J1940

== ENCOUNTER 2022-01-22 06:00 | Outpatient (RCR) | payer MEDICARE, SELFPAY | END 2022-01-28 23:59 | disposition home or self-care (01) | LOC: SPT 06:00 | PROVIDERS: PCP Family Medicine; Referring Provider Orthopaedic Surgery; Visit Provider Orthopaedic Surgery | DX: M43.26 Fusion of spine, lumbar region (principal) | CPT/HCPCS: 97110; 97161 ==

== ENCOUNTER 2022-01-26 10:01 | Outpatient (CLI) | payer MEDICARE, SELFPAY ==
--- NOTE | 2022-01-26 10:15 | USCV_ITS ---
Christian Colin Age: 66 Gender: M : 1955 Exam Date: 01/26/2022 10:27 Ordering Phys: Ranjit Ness MD Technologist: Ashlyn Lane [place] [facility] [place]: Fatigue, edema BP: 139 / 64 HR: 62 Rhythm: Sinus Technical Quality: Adequate MEASUREMENTS (Male / Female) Normal Values 2D ECHO LV Diastolic Diameter PLAX 4.6 cm 4.2 - 5.9 / 3.9 - 5.3 cm LV Systolic Diameter PLAX 2.9 cm IVS Diastolic Thickness 1.5 cm 0.6 - 1.0 / 0.6 - 0.9 cm IVS Systolic Thickness 2.1 cm LVPW Diastolic Thickness 0.9 cm 0.6 - 1.0 / 0.6 - 0.9 cm LVPW Systolic Thickness 1.6 cm LVOT Diameter 2.1 cm LV Ejection Fraction 2D Teich 67.9 % LV Ejection Fraction MOD 2C 82.0 % LV Ejection Fraction 2C AL 83.9 % LA Diameter 3.1 cm LA Width 4.2 cm LA Height 6.2 cm RA Width 3.5 cm RA Height 5.2 cm Aorta at Sinotubular Diameter 2.7 cm IVC Diameter 1.9 cm DOPPLER AV Peak Velocity 141.0 cm/s LVOT Peak Velocity 107.0 cm/s AV Area Cont Eq vti 3.4 cm squared AV Area Cont Eq pk 2.6 cm squared MV Peak Velocity 125.0 cm/s MV Area PHT 2.8 cm squared Mitral E to A Ratio 1.2 MV E' Velocity 75.0 cm/s Mitral E to MV E' Ratio 16.2 Mitral E to LV E' Lateral Ratio 11.9 Mitral E to LV E' Septal Ratio 25.5 TR Peak Velocity 128.0 cm/s TR Peak Gradient 6.6 mmHg Right Atrial Pressure 3.0 mmHg Pulmonary Artery Systolic Pressu 9.6 mmHg PV Peak Velocity 76.0 cm/s RV Acceleration Time 0.1 s FINDINGS Left Ventricle Normal left ventricular size, systolic function and wall thickness, with no regional wall motion abnormalities. Left ventricular ejection fraction is estimated at 60 %. Normal diastolic function. Right Ventricle Normal right ventricular size and systolic function. Right ventricular systolic pressure 9.6 mmHg. Right Atrium Normal right atrial size. Right atrial pressure estimated at 3 mm Hg. Left Atrium Normal left atrial size. Mitral Valve Structurally normal mitral valve. No mitral valve stenosis. No mitral valve regurgitation. Aortic Valve Structurally normal trileaflet aortic valve. No aortic valve stenosis. No aortic valve regurgitation. Tricuspid Valve Structurally normal tricuspid valve. No tricuspid valve stenosis. Trace tricuspid valve regurgitation. Pulmonic Valve Pulmonic valve not well visualized. No pulmonary valve stenosis. Trace pulmonary valve regurgitation. Pericardium No pericardial effusion. Aorta Normal size aortic root and proximal ascending aorta. IVC Normal IVC dimension with >50% respiratory change of the inferior vena cava. CONCLUSIONS 1. Normal left ventricular size, systolic function and wall thickness, with no regional wall motion abnormalities. Left ventricular ejection fraction is estimated at 60 %. Normal diastolic function. 2. Normal right ventricular size and systolic function. 3. No significant valvular abnormality. 4. No prior similar studies to compare. Shira Reyes MD (Electronically Signed) Final Date: 29 January 2022 12:32 S
== END 2022-01-26 10:02 | disposition home or self-care (01) ==
PROVIDERS: PCP Family Medicine; Visit Provider Family Medicine
DX: R53.83 Other fatigue (principal); R60.0 Localized edema
CPT/HCPCS: 93306

== ENCOUNTER 2022-01-29 06:00 | Outpatient (RCR) | payer MEDICARE, SELFPAY | END 2022-02-28 23:59 | disposition home or self-care (01) | LOC: SPT 06:00 | PROVIDERS: PCP Family Medicine; Referring Provider Orthopaedic Surgery; Visit Provider Orthopaedic Surgery | DX: Z98.1 Arthrodesis status (principal) | CPT/HCPCS: 97110 ==

== ENCOUNTER 2022-02-13 12:01 | Outpatient (CLI) | payer MEDICARE, SELFPAY ==
[2022-02-13 12:57] LABS: Blood Urea Nitrogen 24 mg/dL (8-23); Calcium 9.1 mg/dL (8.5-10.5); Carbon Dioxide 29 mmol/L (22-29); Chloride 101 mmol/L (98-107); Glomerular Filtration Rate 67.2 mL/min (90-130); Glucose 98 mg/dL (65-115); NT Pro B Type Natriuretic Pept 242 pg/mL (0-125); Osmolality Calculated 294 mOsm/kg (285-295); Sodium 140 mmol/L (136-145)
[2022-02-13 13:00] LABS: Anion Gap 13.7 (5-19); Potassium 3.7 mmol/L (3.5-5.1)
== END 2022-02-13 12:02 | disposition home or self-care (01) ==
PROVIDERS: Absent Provider Orthopaedic Surgery; PCP Family Medicine; Visit Provider Internal Medicine Cardiovascular Disease
DX: I10 Essential (primary) hypertension (principal)
CPT/HCPCS: 80048; 83735; 83880

== ENCOUNTER → 2022-02-14 10:10 | Outpatient (BNVA) | payer MEDICARE, SELFPAY | PROVIDERS: PCP Family Medicine; Visit Provider Internal Medicine Cardiovascular Disease | DX: I10 Essential (primary) hypertension (principal); E78.00 Pure hypercholesterolemia, unspecified; I83.93 Asymptomatic varicose veins of bilateral lower extremities; N40.0 Benign prostatic hyperplasia without lower urinary tract symptoms | CPT/HCPCS: 99214 ==

== ENCOUNTER 2022-03-01 06:00 | Outpatient (RCR) | payer MEDICARE, SELFPAY | END 2022-03-14 23:59 | disposition home or self-care (01) | LOC: SPT 06:00 | PROVIDERS: PCP Family Medicine; Visit Provider Orthopaedic Surgery | DX: Z98.1 Arthrodesis status (principal) | CPT/HCPCS: 97110 ==

== ENCOUNTER → 2022-03-07 09:50 | Outpatient (BNVA) | payer MEDICARE, SELFPAY | PROVIDERS: PCP Family Medicine; Visit Provider Nurse Practitioner Family | DX: I10 Essential (primary) hypertension (principal) | CPT/HCPCS: 99213 ==

== ENCOUNTER 2022-03-15 07:48 | Observation (INO) | payer MEDICARE, SELFPAY ==
[2022-03-15] VITALS (15 sets, daily range): BP systolic 127–186; BP diastolic 64–79; PULSE 74–102; RESP 10–18; TEMP 36.6–37; O2SAT 93–98; BMI 40.4
--- NOTE | 2022-03-15 07:59 | CT_ITS ---
WS: [id number] CT abdomen pelvis wo con [id number] REASON FOR EXAM: rlq pain IV CONTRAST ADMINISTERED: None. TOTAL EXAM DLP: 1279.[address] scans at [facility] use at least one of these dose optimization techniques: automat ed exposure control; mA and/or kV adjustment per patient size (includes targeted exams where dose is matched to clinical indication); or iterative reconstruction. FINDINGS: ABDOMEN: Liver and spleen are unremarkable. Pancreas and gallbladder are within normal limits. Adrenal glands are normal. Kidneys are within normal limits with no mass, calculus, or hydronephrosis. No free fluid or focal fluid collection. In the right lower quadrant there is hazy density around the appendix. The appendix is dilated measur ing 8 to 10 mm in maximum diameter there is mild thickening of the wall. The appendix does contain ga s. PELVIS: No mass or adenopathy. No distal ureteral calculi or bladder calculi. No free fluid or focal fluid collection. CT/CT abdomen pelvis wo con [id number] IMPRESSION: Inflammatory changes in the fat in the right lower quadrant associated with a d ilated appendix. Even though the appendix contains gas, the findings indicate a ppendicitis.
--- NOTE | 2022-03-15 08:01 | W.ED.ABDPA2 ---
HPI - Abdominal Pain General: Chief Complaint: Abdominal Pain Stated Complaint: abd pains Time Seen by Provider: 03/15/22 07:51 Source: patient Mode of arrival: ambulatory Limitations: no limitations History of Present Illness: 66-year-old male states been having right lower quadrant pain since yesterday. States pain is been sharp and is worsened throughout the day states it is worse with movement and palpation patient denies any vomiting or diarrhea denies any fevers denies any dysuria. No history of abdominal surgeries in the past Associated Symptoms: Denies chills, dysuria and fever(s) Review of Systems Const: Denies: fever(s), chills, body aches or change in appetite Eyes: Denies: blurry vision or eye discomfort ENMT: Denies: throat pain or dental pain Card: Denies: chest pain Resp: Denies: dyspnea GI: Reports: abdominal pain : Denies: dysuria Musc: Denies: neck pain or back pain Skin/Breast: Denies: rash Neuro: Denies: headache(s) Psych: Denies: depression Frank/Lymph: Denies: easy bruising All/Imm: Denies: urticaria PFSH ED PFSH: Medical History BPH (benign prostatic hyperplasia) BPH loc w urin obs/LUTS Erectile dysfunction HTN (hypertension) Hypercholesteremia Varicose veins of both lower extremities Surgical History Hx of cervical spine surgery Hx of lumbosacral spine surgery Hx of partial thyroidectomy S/P left knee arthroscopy S/P removal of thyroid nodule Family History Father , at age 84 Natural Mother , at age 42 Cancer Other CAD (coronary artery disease) Social History Smoking and tobacco status: never smoked Alcohol intake: never Marital status: Current occupational status: employed and disabled History of recent travel: No Physical Exam Const: COMMON NORMALS: no acute distress, patient oriented x3 and healthy appearing HENMT: COMMON NORMALS: normocephalic and atraumatic HEAD & SCALP: normocephalic and atraumatic Eye: COMMON NORMALS: Equal, round and reactive pupils present and EOMs intact bilaterally PUPIL: Yes Equal, round and reactive pupils present Neck/C-Spine: COMMON NORMALS: full ROM and supple Chest: COMMONS NORMALS: normal inspection of the chest and normal palpation of entire chest wall Resp: COMMON NORMALS: normal respiratory effort, No retractions, No use of accessory muscles and clear to auscultation bilaterally AUSCULTATION: clear to auscultation bilaterally Cardio: COMMON NORMALS: regular rate, regular rhythm and No murmurs present (Cardio) RATE: regular rate RHYTHM: regular rhythm GI: COMMON NORMALS: Normal to inspection, nondistended, normoactive bowel sounds present, Soft to palpation, non-tender and no masses PALPATION: Yes Soft to palpation and Yes Tenderness to palpation present (GI) Details: RLQ Extremity: COMMON NORMALS: normal to inspection and full ROM Neuro: COMMON NORMALS: patient oriented x3, moves all extremities and no focal motor deficits Psych: COMMON NORMALS: mental status grossly normal, Normal thought process present and cooperative THOUGHT PROCESS: Normal thought process present Skin: COMMON NORMALS: no rashes or lesions noted and no wounds GENERAL SKIN EXAM: no rashes or lesions noted Course Vital Signs: Vital signs: Vital Signs Temperature 97.9 F 03/15/22 07:52 Pulse Rate 74 03/15/22 09:00 Respiratory Rate 18 03/15/22 07:52 Blood Pressure 160/79 03/15/22 09:00 Pulse Oximetry 98 03/15/22 09:00 Oxygen Delivery Me thod 03/15/22 07:52 MDM - Abdominal Pain Medical Decision Making Patient presents with right lower quadrant pain was found to have appendicitis did speak to surgery who will take to the OR patient has been stable down here. Lab Data : 03/15/22 08:15 03/15/22 08:15 Labs/Radiology: Radiology Impressions Abdomen/Pelvis CT 03/15/22 07:59 IMPRESSION: Inflammatory changes in the fat in the right lower quadrant associated with a dilated appendix. Even though the appendix contains gas, the findings indicate appendicitis. Laboratory Results WBC 11.4 10^3/uL (4.0-10.0) H 03/15/22 08:15 RBC 4.51 10^6/uL (4.1-5.3) 03/15/22 08:15 Hgb 12.8 g/dL (11.7-16.6) 03/15/22 08:15 Hct 39.2 % (42.0-52.0) L 03/15/22 08:15 MCV 86.9 fl (80-94) 03/15/22 08:15 MCH 28.4 pg (28.0-34.0) 03/15/22 08:15 MCHC 32.7 g/dL (30.0-36.0) 03/15/22 08:15 RDW 15.4 % (12.1-15.1) H 03/15/22 08:15 Plt Count 177 10^3/cmm (130-400) 03/15/22 08:15 MPV 11.3 fL (7.4-10.4) H 03/15/22 08:15 Neut % (Auto) 81.2 % 03/15/22 08:15 Lymph % (Auto) 8.4 % 03/15/22 08:15 [place] % (Auto) 8.0 % 03/15/22 08:15 Eos % (Auto) 1.6 % 03/15/22 08:15 Baso % (Auto) 0.4 % 03/15/22 08:15 Neut # (Auto) 9.22 10^3/uL (1.8-7.7) H 03/15/22 08:15 Lymph # (Auto) 1.0 10^3/uL (0.8-4.8) 03/15/22 08:15 [place] # (Auto) 0.9 10^3/uL (0.2-0.9) 03/15/22 08:15 Eos # (Auto) 0.2 10^3/uL (0.0-0.8) 03/15/22 08:15 Baso # (Auto) 0.0 10^3/uL (0.0-0.1) 03/15/22 08:15 Nucleated RBC % (auto) 0 % 03/15/22 08:15 Nucleated RBCs # 0.0 /100WBC 03/15/22 08:15 Sodium 140 mmol/L (136-145) 03/15/22 08:15 Potassium 3.5 mmol/L (3.5-5.1) 03/15/22 08:15 Chloride 100 mmol/L (98-107) 03/15/22 08:15 Carbon Dioxide 32 mmol/L (22-29) H 03/15/22 08:15 Anion Gap 11.5 (5-19) 03/15/22 08:15 BUN 27 mg/dL (8-23) H 03/15/22 08:15 Creatinine 1.3 mg/dL (0.7-1.2) H 03/15/22 08:15 GFR Calculation 55.4 mL/min (90-130) L 03/15/22 08:15 Glucose 121 mg/dL (65-115) H 03/15/22 08:15 Calculated Osmolality 296 mOsm/kg (285-295) H 03/15/22 08:15 Calcium 9.0 mg/dL (8.5-10.5) 03/15/22 08:15 Total Bilirubin 0.5 mg/dL (0.15-1.2) 03/15/22 08:15 AST 16 U/L (0-40) 03/15/22 08:15 ALT 18 U/L (0-41) 03/15/22 08:15 Alkaline Phosphatase 70 U/L (40-130) 03/15/22 08:15 Total Protein 6.6 g/dL (6.6-8.7) 03/15/22 08:15 Albumin 3.8 g/dL (3.5-5.2) 03/15/22 08:15 Globulin 2.8 g/dL (1.3-4.6) 03/15/22 08:15 Lipase 62 U/L (13-60) H 03/15/22 08:15 Discharge Plan Discharge Condition: Stable Prescriptions: No Action tramadol 50 mg tablet 50 mg PO DAILY buspirone 15 mg tablet 15 mg PO BID trazodone 150 mg tablet 150 mg PO DAILY furosemide 20 mg tablet 40 mg PO DAILY ropinirole 2 mg tablet 3 mg PO DAILY potassium chloride 10 mEq capsule, extended release 20 meq PO DAILY sildenafil 100 mg tablet 100 mg PO DAILY PRN (Reason: sexual activity) Qty: 20 6RF Rx Instructions: Take 1 hour before intercourse, on empty stomach, max dose 100 mg, NO NITROGLYCERIN ibuprofen 600 mg tablet 600 mg PO Q6H PRN (Reason: Pain) tamsulosin 0.4 mg capsule 0.8 mg PO BEDTIME duloxetine 20 mg capsule,delayed release(DR/EC) 30 mg PO DAILY valsartan 160 mg tablet 160 mg PO DAILY Qty: 30 1RF oxycodone-acetaminophen 5-325 mg tablet 1 tab PO Q4H PRN (Reason: pain) 7 Days Qty: 40 0RF amlodipine 10 mg tablet 10 mg PO DAILY Qty: 90 0RF finasteride 5 mg tablet 5 mg PO DAILY Qty: 100 3RF (DME) Bone Growth Stimulator E0748 See Rx Instructions .Route .MEDSUPPLY Qty: 1 0RF Rx Instructions: As directed. hydrochlorothiazide 25 mg tablet 50 mg PO DAILY Qty: 180 1RF baclofen 20 mg tablet 20 mg PO TID Aspir-81 81 mg Tablet,Delayed Release (Dr/Ec) 81 mg PO DAILY Coding Level of Care Code ED Director Of Spa And Guest Experience for [facility] Exam Comprehensive
[2022-03-15 08:25] LABS: Basophils % 0.4 %; Eosinophils # 0.2 10^3/uL (0.0-0.8); Eosinophils % 1.6 %; Hematocrit 39.2 % (42.0-52.0); Hemoglobin 12.8 g/dL (11.7-16.6); Lymphocytes % 8.4 %; Mean Corpuscular HGB Conc 32.7 g/dL (30.0-36.0); Mean Corpuscular Hemoglobin 28.4 pg (28.0-34.0); Mean Corpuscular Volume 86.9 fl (80-94); Mean Platelet Volume 11.3 fL (7.4-10.4); Monocytes # 0.9 10^3/uL (0.2-0.9); Neutrophils # 9.22 10^3/uL (1.8-7.7); Neutrophils % 81.2 %; Nucleated Red Blood Cells % 0 %; Platelet Count 177 10^3/cmm (130-400); Red Blood Count 4.51 10^6/uL (4.1-5.3); Red Cell Distribution Width 15.4 % (12.1-15.1); White Blood Count 11.4 10^3/uL (4.0-10.0)
[2022-03-15] MEDS: sodium chloride 0.9% 1,000 ML 999 ML IV (08:50)
[2022-03-15] MEDS: ondansetron 2 mg/ML SDV 2 mL 4 MG IVP (08:52)
[2022-03-15] MEDS: HYDROmorphone 1 mg/mL INJ 1 mL 0.5 MG IVP (08:57)
[2022-03-15 09:01] LABS: Alanine Aminotransferase 18 U/L (0-41); Albumin Level 3.8 g/dL (3.5-5.2); Alkaline Phosphatase 70 U/L (40-130); Anion Gap 11.5 (5-19); Aspartate Amino Transferase 16 U/L (0-40); Blood Urea Nitrogen 27 mg/dL (8-23); Carbon Dioxide 32 mmol/L (22-29); Chloride 100 mmol/L (98-107); Globulin 2.8 g/dL (1.3-4.6); Glomerular Filtration Rate 55.4 mL/min (90-130); Glucose 121 mg/dL (65-115); Lipase 62 U/L (13-60); Osmolality Calculated 296 mOsm/kg (285-295); Potassium 3.5 mmol/L (3.5-5.1); Sodium 140 mmol/L (136-145); Total Bilirubin 0.5 mg/dL (0.15-1.2); Total Protein 6.6 g/dL (6.6-8.7)
[2022-03-15] MEDS: piperacillin-tazobactam 3.375 GM in sodium chloride 0.9% (plus) 50 ML IV ×2 (09:27→18:07)
--- NOTE | 2022-03-15 09:39 | PM.HP ---
Providers/Chief Complaint Admitting Physician: Jose Antonio Oliva Primary Care Provider: Ranjit Ness MD Chief Complaint: abd pains History of Present Illness Christian Colin is a 66 year old male He developed acute abdominal pain at about 2 PM yesterday. He never had such pain before. It started gradually in the right lower quadrant, went up to 8/10 in intensity, became constant. Moving around make it worse. Lying still makes it better. He denies any nausea/vomiting/fever. He had an episode of chills upon arrival to the emergency room. Denies diarrhea or constipation. He has benign prostatic hypertension, he has some difficulty urinating, it is chronic and stable, no new acute symptoms. He also complains of mild back pain. He had back surgery several months ago, the pain is improving gradually, did not resolve completely. He is scheduled to see his spine surgeon at the end of March to reassess his ability to go back to work. He has a history of superficial phlebitis on the right leg after spinal surgery, no history of DVT or PE. History of colonoscopies, the last one was 2 to 3 years ago, a couple of small polyps were removed. No findings of diverticulitis or any inflammation per patient and his . Next colonoscopy recommended in 5 to 10 years. History of gynecological malignancy in his mother. She young. No history of colon cancer or inflammatory bowel disease in the family. History of hypertension which is well controlled with medications. Obesity. Stable. He denies any recent weight loss. Denies any chest pain or shortness of breath. He is able to walk a mile, back pain is limitation, denies any chest pain with physical exertion. Review of Systems Narrative: 10 point review of systems is negative except as per HPI Medications/Allergies Home Medications Medication Instructions Recorded Confirmed Last Taken Type trazodone 150 mg tablet 150 mg PO DAILY 12/28/19 03/15/22 03/14/22 History buspirone 15 mg tablet 15 mg PO BID 10/10/20 03/15/22 03/14/22 History tramadol 50 mg tablet 50 mg PO DAILY 10/10/20 03/15/22 03/14/22 History sildenafil 100 mg tablet 100 mg PO DAILY PRN sexual 05/16/21 03/15/22 Unknown Rx activity #20 tabs baclofen 20 mg tablet 20 mg PO TID 09/28/21 03/15/22 03/14/22 History amlodipine 10 mg tablet 10 mg PO DAILY #90 tabs 10/02/21 03/15/22 03/14/22 Rx finasteride 5 mg tablet 5 mg PO DAILY #100 tabs 10/04/21 03/15/22 03/14/22 Rx oxycodone-acetaminophen 5 mg-325 1 tab PO Q4H PRN pain 7 days #40 10/19/21 03/15/22 03/14/22 Rx mg tablet tabs Bone Growth Stimulator E0748 #1 ea 11/07/21 03/15/22 Unknown Rx hydrochlorothiazide 25 mg tablet 50 mg PO DAILY #180 tabs 02/05/22 03/15/22 03/14/22 Rx ibuprofen 600 mg tablet 600 mg PO Q6H PRN Pain 02/14/22 03/15/22 Unknown History ropinirole 2 mg tablet 3 mg PO DAILY 02/14/22 03/15/22 03/14/22 History tamsulosin 0.4 mg capsule 0.8 mg PO BEDTIME 02/14/22 03/15/22 03/14/22 History duloxetine 20 mg capsule,delayed 30 mg PO DAILY 03/07/22 03/15/22 03/14/22 History release furosemide 20 mg tablet 40 mg PO DAILY 03/07/22 03/15/22 03/14/22 History potassium chloride 10 mEq 20 meq PO DAILY 03/07/22 03/15/22 03/14/22 History capsule,extended release valsartan 160 mg tablet 160 mg PO DAILY #30 tabs 03/07/22 03/15/22 03/14/22 Rx aspirin 81 mg tablet,delayed 81 mg PO DAILY 03/15/22 03/15/22 03/14/22 History release Allergies Allergy/AdvReac Type Severity Reaction Status Date / Time No Known Allergies Allergy Verified 03/15/22 08:56 PFSH Acute PFSH: Medical History BPH (benign prostatic hyperplasia) BPH loc w urin obs/LUTS Erectile dysfunction HTN (hypertension) Hypercholesteremia Varicose veins of both lower extremities Surgical History Hx of cervical spine surgery Hx of lumbosacral spine surgery Hx of partial thyroidectomy S/P left knee arthroscopy S/P removal of thyroid nodule Family History Father , at age 84 Natural Mother , at age 42 Cancer Other CAD (coronary artery disease) Social History Smoking and tobacco status: never smoked Alcohol intake: never Marital status: Current occupational status: employed and disabled History of recent travel: No Vitals/I&O/Wt Last Vital Signs Temp 97.9 F 03/15/22 07:52 Pulse 74 03/15/22 09:00 Resp 18 03/15/22 07:52 BP 160/79 03/15/22 09:00 Pulse Ox 98 03/15/22 09:00 O2 Del Method 03/15/22 07:52 Weight last 48 hrs Weight 290 lb Physical Exam Narrative: General: No acute distress, comfortable Psych: [AAOx3] Eyes: [sclerae are white] Head/ENT: [normocephalic, symmetric] CV: [regular] pulse, [tachychardic], no JVD Lungs: [symmetrical chest rise] Abdomen: [soft, obese ND], tender to palpation predominantly in the right lower quadrant. No peritoneal signs. Small reducible umbilical hernia. Ext: [no obvious traumatic deformities] Skin: warm Data : 03/15/22 08:15 03/15/22 08:15 Other Labs: Mild leukocytosis consistent with appendicitis. Serum creatinine is at the upper limit of normal. A&P Assessment and plan (1) Acute appendicitis: Status: Acute (2) Umbilical hernia without mention of obstruction or gangrene: Status: Acute (3) HTN (hypertension): Status: Acute Qualifiers: Hypertension type: unspecified Qualified Code(s): I10 - Essential (primary) hypertension (4) BPH (benign prostatic hyperplasia): Status: Inactive Qualifiers: Lower urinary tract symptom presence: unspecified whether lower urinary tract symptoms present Qualified Code(s): N40.0 - Benign prostatic hyperplasia without lower urinary tract symptoms (5) Hypercholesteremia: Status: Acute (6) Varicose veins of both lower extremities: Status: Acute Plan We discussed the natural course of the disease and indications for laparoscopic appendectomy, including risks and benefits of a surgical procedure, including infection, bleeding, damage to surrounding tissue, intraabdominal abscess, hernia at the incision site, bowel obstruction, bowel leak, deep venous thrombosis and pulmonary embolism, and . The patient agreed to proceed with laparoscopic appendectomy and signed an informed consent. Alternative is management with antibiotics, however I think the patient will benefit from appendectomy laparoscopically. The patient also has a small umbilical hernia at the trocar site. I will repair the hernia at the same time. Otherwise the hernia is asymptomatic and does not cause him any problems. Chances of hernia recurrence were discussed, if it happens, it may require repair with the mesh down the road. Given recent history of superficial thrombophlebitis, will initiate DVT prophylaxis right after surgery. Importance of ambulation today after surgery was discussed and patient confirmed that he is going to do it. Admit for observation, n.p.o., IV fluids, Lovenox for DVT prophylaxis, Zosyn IV, first dose was already given, restart home medications after surgery, monitor blood pressure and heart rate, continuous pulse ox. Given all age and multiple medical problems, will likely trial admit for observation overnight, however, will reassess his recovery after surgery as well as intraoperative course. His medical problems are stable. Plan to restart all the home meds. If blood pressure difficult to control, I will consult medicine. - Scheduled for a laparoscopic appendectomy, open repair of a small asymptomatic umbilical hernia at the same time.. Attestations Medical Necessity Statement*: appendicitis Coding Level of Care Code Acute Child Protective Services Specialist for [facility] Diagnoses Acute appendicitis K35.80 Umbilical hernia without mention of obstruction or gangrene K42.9 HTN (hypertension) I10 Hypertension type: unspecified BPH (benign prostatic hyperplasia) N40.0 Lower urinary tract symptom presence: unspecified whether lower urinary tract symptoms present Hypercholesteremia E78.00 Varicose veins of both lower extremities I83.93
--- NOTE | 2022-03-15 10:49 | ANES.PREANE2 ---
Pre-Anesthetic Assessment Height/Weight: Height 1.8 m Weight 131.542 kg Temp Pulse Resp BP Pulse Ox O2 Del Method 97.9 F 74 18 160/79 98 03/15/22 07:52 03/15/22 09:00 03/15/22 07:52 03/15/22 09:00 03/15/22 09:00 03/15/22 07:52 Preop Diagnosis: Spondylolisthesis L4-5 with ddd L spine Operation Date: 03/15/22 10:00 Proposed Procedures p Laparoscopic Appendectomy(Not Applicable) - Jose Antonio Oliva MD Familial anesthetic complications: None Was Beta Esme taken within 24 hours: N/A Was Clonidine taken within 24 hours: N/A Last intake: Intake Last Liquid Date 03/14/22 Last Liquid Time 00:00 Last Solid Date 03/14/22 Last Solid Time 19:30 Social No alcohol and No tobacco Exam alert, oriented x 3, clear to auscultation bilaterally and regular rate & rhythm Airway Submandibular: within normal limits Cervical ROM: within normal limits Mallampati: Class II Dentition: partials CV/HEM Hypertension Metabolic Morbid Obesity Musc/skel Lower Back Pain chronic opioid Neuropsych Anxiety and Depression Anesthetic Plan ASA status: 3 Anesthesia: General Medications/Allergies Home Medications Medication Instructions Recorded Confirmed Last Taken Type trazodone 150 mg tablet 150 mg PO DAILY 12/28/19 03/15/22 03/14/22 History buspirone 15 mg tablet 15 mg PO BID 10/10/20 03/15/22 03/14/22 History tramadol 50 mg tablet 50 mg PO DAILY 10/10/20 03/15/22 03/14/22 History sildenafil 100 mg tablet 100 mg PO DAILY PRN sexual 05/16/21 03/15/22 Unknown Rx activity #20 tabs baclofen 20 mg tablet 20 mg PO TID 09/28/21 03/15/22 03/14/22 History amlodipine 10 mg tablet 10 mg PO DAILY #90 tabs 10/02/21 03/15/22 03/14/22 Rx finasteride 5 mg tablet 5 mg PO DAILY #100 tabs 10/04/21 03/15/22 03/14/22 Rx oxycodone-acetaminophen 5 mg-325 1 tab PO Q4H PRN pain 7 days #40 10/19/21 03/15/22 03/14/22 Rx mg tablet tabs Bone Growth Stimulator E0748 #1 ea 11/07/21 03/15/22 Unknown Rx hydrochlorothiazide 25 mg tablet 50 mg PO DAILY #180 tabs 02/05/22 03/15/22 03/14/22 Rx ibuprofen 600 mg tablet 600 mg PO Q6H PRN Pain 02/14/22 03/15/22 Unknown History ropinirole 2 mg tablet 3 mg PO DAILY 02/14/22 03/15/22 03/14/22 History tamsulosin 0.4 mg capsule 0.8 mg PO BEDTIME 02/14/22 03/15/22 03/14/22 History duloxetine 20 mg capsule,delayed 30 mg PO DAILY 03/07/22 03/15/22 03/14/22 History release furosemide 20 mg tablet 40 mg PO DAILY 03/07/22 03/15/22 03/14/22 History potassium chloride 10 mEq 20 meq PO DAILY 03/07/22 03/15/22 03/14/22 History capsule,extended release valsartan 160 mg tablet 160 mg PO DAILY #30 tabs 03/07/22 03/15/22 03/14/22 Rx aspirin 81 mg tablet,delayed 81 mg PO DAILY 03/15/22 03/15/22 03/14/22 History release Allergies Allergy/AdvReac Type Severity Reaction Status Date / Time No Known Allergies Allergy Verified 03/15/22 08:56 [facility] Anesthesia Medical History BPH (benign prostatic hyperplasia) BPH loc w urin obs/LUTS Erectile dysfunction HTN (hypertension) Hypercholesteremia Varicose veins of both lower extremities Surgical History Hx of cervical spine surgery Hx of lumbosacral spine surgery Hx of partial thyroidectomy S/P left knee arthroscopy S/P removal of thyroid nodule Family History Father , at age 84 Natural Mother , at age 42 Cancer Other CAD (coronary artery disease) Social History Smoking and tobacco status: never smoked Alcohol intake: never Marital status: Current occupational status: employed and disabled History of recent travel: No Data Anesthesia : 03/15/22 08:15 03/15/22 08:15 Short CBC 03/15/22 Range/Units 08:15 WBC 11.4 H (4.0-10.0) 10^3/uL Hgb 12.8 (11.7-16.6) g/dL Hct 39.2 L (42.0-52.0) % MCV 86.9 (80-94) fl Plt Count 177 (130-400) 10^3/cmm Neut % (Auto) 81.2 % Neut # (Auto) 9.22 H (1.8-7.7) 10^3/uL BMP 03/15/22 08:15 Sodium 140 Potassium 3.5 Chloride 100 Carbon Dioxide 32 H BUN 27 H Creatinine 1.3 H Glucose 121 H Calcium 9.0 Liver Function 03/15/22 Range/Units 08:15 Total Bilirubin 0.5 (0.15-1.2) mg/dL AST 16 (0-40) U/L ALT 18 (0-41) U/L Alkaline Phosphatase 70 (40-130) U/L Albumin 3.8 (3.5-5.2) g/dL Cardiac Studies: Echocardiogram 01/26/22
--- NOTE | 2022-03-15 12:03 | PM.OP ---
Operative Report Date of procedure: March 15, 2022 Pre-op diagnosis: Preop Diagnosis Procedure: Laparoscopic preoperative diagnosis: Acute appendicitis. Small asymptomatic umbilical hernia Postoperative diagnosis: Acute appendicitis, nonperforated. Small asymptomatic umbilical hernia Procedure: Laparoscopic appendectomy (CPT 37480). Repair of accidental asymptomatic umbilical hernia Surgeon: Jose Antonio Oliva MD, RPVI Start/End time: please, see nursing documentation. Monorail Hooker: none Anesthesia: General Endotracheal Anesthesiologist/DIRECTOR OF LAND ACQUISITION: please, see anesthesia documentation. EBL, ml: 2 ml Specimen: appendix, submitted to pathology Complications: none Findings: Appendix was inflamed, nonperforated, located retrocecally. Umbilical hernia 0.8 cm, reducible. Repaired with interrupted PDS and Vicryl sutures []_ Indications: Clinical picture of acute appendicitis confirmed by a CT scan. []_ We discussed the natural course of the disease and indications for laparoscopic appendectomy, including risks and benefits of a surgical procedure, including infection, bleeding, damage to surrounding tissue, intraabdominal abscess, hernia at the incision site, bowel obstruction, bowel leak, deep venous thrombosis and pulmonary embolism, and . The patient agreed to proceed with laparoscopic appendectomy and signed an informed consent. Details of the procedure: The patient was identified in the holding area and brought to the operating room and positioned supine on the operating table. Sequential compression devices were applied to bilateral lower extremities to prevent deep venous thromboembolism. Subsequently, general endotracheal anesthesia was initiated without any complications. The surgical area was prepped and draped in a regular sterile fashion. TIME OUT: Immediately prior to procedure, time out was performed to include correct patient, agreement on the procedure to be performed, correct side, site, position, accurate procedure consent, relevant images, antibiotics, fluids, safety precautions, and availability of any special implants that might be required. The skin was anesthetized with Marcaine and periumbilical incision was made and carried down to the fascia. Small reducible umbilical hernia was identified. It was dissected of the umbilicus and surrounding tissue. Hernia sac was entered, preperitoneal fat was reduce into the abdomen. A balloon trocar was placed and the abdomen was insufflated to 15 mm Hg. A 10 mm 30 degree angle camera was introduced into the abdomen. Additional 5 mm trocars were placed under direct vision: one in the midline 2 cm above the pubis, second in the left lower quadrant lateral to the rectus muscle. All the trocar sites were infiltrated with local anesthetic from skin to peritoneum before the insertion. The appendix was inflamed. It was grasped with a laparoscopic Mario clamp and retracted upward to expose the mesoappendix. The mesentery of the appendix was divided with bipolar device. There was no bleeding. Then the Vicryl endoloop was tied around the base of the appendix. The appendix was divided 7mm distal to the endoloop. The appendix was placed in the Endocatch bag. The operative field was irrigated with saline, inspected and good hemostasis was confirmed. All the irrigation fluid was aspirated. Both 5mm trocars were removed under direct vision. There was no bleeding. Specimen was removed in the bag through umbilical incision. The fascial edges at the umbilical wound were cleaned from all the scar and hernia sac. The fascia at the umbilical incision was closed with interrupted 0 PDS and Vicryl sutures. The wound was irrigated again. Local anesthetic was injected into the wound. The wound was approximated with 3-0 Vicryl. Skin incisions were closed primarily with 4-0 Monocryl. Steristrips were applied. The needle, instrument and sponge counts were correct x 2. The patient tolerated the procedure well, was extubated in the OR and was transferred to the recovery in stable condition.
[2022-03-15] MEDS: meperidine 50 mg/mL INJ 12.5 MG IVP (12:45)
--- NOTE | 2022-03-15 15:23 | ANE.PACU2 ---
Inpatient post-anesthesia follow up: Airway intact: Yes Vital signs: Temperature 98.3 F Pulse Rate 78 Respiratory Rate 18 Blood Pressure 127/67 Pulse Oximetry 97 Oxygen Delivery Me thod Room Air Oxygen Flow Rate 2 Fraction of Inspir ed Oxygen Hydration adequate: Yes Nausea and vomiting: No Pain level: 3 Mental status: Baseline
--- NOTE | 2022-03-15 16:02 | SUR.OPER ---
1602, report called to swati with patient info,
[2022-03-15] MEDS: ketorolac 30 mg/mL INJ 15 MG IVP (18:06)
[2022-03-15] MEDS: docusate sodium 100 mg Capsule PO (18:06)
[2022-03-15] MEDS: enoxaparin 40 mg/0.4 mL Syringe SUBCUT (18:07)
[2022-03-15] MEDS: lactated ringers 1,000 ML 100 ML IV (18:09)
[2022-03-15] MEDS: BuSPIRONE 10 mg Tablet 5 MG PO (20:17)
[2022-03-15] MEDS: trazodone 150 mg Tablet PO (20:17)
[2022-03-15] MEDS: baclofen 10 mg Tablet 20 MG PO (20:18)
[2022-03-15] MEDS: sennosides 8.6 mg Tablet 17.2 MG PO (20:18)
[2022-03-15] MEDS: tamsulosin 0.4 mg Capsule 0.8 MG PO (20:18)
[2022-03-16] VITALS (8 sets, daily range): BP systolic 136–150; BP diastolic 67–70; PULSE 64–91; RESP 16–17; TEMP 36.6–37.1; O2SAT 92–97
[2022-03-16] MEDS: ketorolac 30 mg/mL INJ 15 MG IVP ×2 (02:58→09:53)
[2022-03-16] MEDS: piperacillin-tazobactam 3.375 GM in sodium chloride 0.9% (plus) 50 ML IV ×2 (02:58→09:52)
[2022-03-16] MEDS: oxyCODONE-APAP 5-325 mg Tablet 1 TAB PO (03:13)
[2022-03-16 05:16] LABS: Basophils % 0.1 %; Hematocrit 38.4 % (42.0-52.0); Hemoglobin 12.1 g/dL (11.7-16.6); Lymphocytes # 0.8 10^3/uL (0.8-4.8); Lymphocytes % 5.9 %; Mean Corpuscular HGB Conc 31.5 g/dL (30.0-36.0); Mean Corpuscular Hemoglobin 28.3 pg (28.0-34.0); Mean Corpuscular Volume 89.9 fl (80-94); Mean Platelet Volume 11.6 fL (7.4-10.4); Monocytes # 0.8 10^3/uL (0.2-0.9); Monocytes % 5.9 %; Neutrophils # 12.43 10^3/uL (1.8-7.7); Neutrophils % 87.7 %; Nucleated Red Blood Cells % 0 %; Platelet Count 173 10^3/cmm (130-400); Red Blood Count 4.27 10^6/uL (4.1-5.3); Red Cell Distribution Width 15.4 % (12.1-15.1); White Blood Count 14.2 10^3/uL (4.0-10.0)
[2022-03-16 06:35] LABS: Anion Gap 10.8 (5-19); Blood Urea Nitrogen 24 mg/dL (8-23); Calcium 8.4 mg/dL (8.5-10.5); Carbon Dioxide 28 mmol/L (22-29); Chloride 102 mmol/L (98-107); Glomerular Filtration Rate 60.8 mL/min (90-130); Glucose 139 mg/dL (65-115); Osmolality Calculated 290 mOsm/kg (285-295); Potassium 3.8 mmol/L (3.5-5.1); Sodium 137 mmol/L (136-145)
[2022-03-16] MEDS: hydroCHLOROthiazide 25 mg Tablet 50 MG PO (09:50)
[2022-03-16] MEDS: docusate sodium 100 mg Capsule PO (09:50)
[2022-03-16] MEDS: FUROsemide 40 mg Tablet PO (09:50)
[2022-03-16] MEDS: losartan 50 mg Tablet PO (09:50)
[2022-03-16] MEDS: ropinirole 2 mg Tablet 3 MG PO (09:50)
--- NOTE | 2022-03-16 09:50 | P.DS_ITS ---
Discharge Providers Date of Admission: 03/15/22 16:11 Date of Discharge: March 16, 2022 Attending Provider at Admission: Jose Antonio Oliva MD Attending Provider at Discharge: Jose Antonio Oliva MD Primary Care Provider: Ranjit Ness MD Diagnoses at Discharge Discharge Diagnosis (1) Acute appendicitis: Status: Acute (2) Umbilical hernia without mention of obstruction or gangrene: Status: Acute (3) HTN (hypertension): Status: Acute Qualifiers: Hypertension type: unspecified Qualified Code(s): I10 - Essential (primary) hypertension (4) BPH (benign prostatic hyperplasia): Status: Inactive Qualifiers: Lower urinary tract symptom presence: unspecified whether lower urinary tract symptoms present Qualified Code(s): N40.0 - Benign prostatic hyperplasia without lower urinary tract symptoms (5) Hypercholesteremia: Status: Acute (6) Varicose veins of both lower extremities: Status: Acute Reason for Visit Reason for Visit: abd pains Hospital Course Hospital Course The patient was admitted with acute abdominal pain secondary to acute appendicitis. He also had an asymptomatic umbilical reducible hernia. He underwent laparoscopic appendectomy and repair of umbilical hernia. Postoperative course was uncomplicated. He was able to tolerate regular diet, urinate, perform all his activities of daily living without any limitations. Discharged home in a stable condition. Physical Exam Narrative: General: No acute distress, comfortable Psych: [AAOx3] Eyes: [sclerae are white] Head/ENT: [normocephalic, symmetric] CV: [regular] pulse, [tachychardic], no JVD Lungs: [symmetrical chest rise] Abdomen: [soft, ND, minimal tenderness to palpation around incisions] Ext: [no obvious traumatic deformities] Skin: warm Discharge Data Studies Completed and Pending Completed Studies During Hospitalization Category Date Time Status CT abdomen pelvis wo con [id number] Stat Cat Scan 03/15/22 07:59 Completed Pending at discharge Category Date Time Status ES surgery / GI images Stat Exams 03/15/22 10:36 Taken Pathology: Surgical [PTH] Routine Pth 03/15/22 12:15 Received Radiology Impressions Abdomen/Pelvis CT 03/15/22 07:59 IMPRESSION: Inflammatory changes in the fat in the right lower quadrant associated with a dilated appendix. Even though the appendix contains gas, the findings indicate appendicitis. Laboratory Results WBC 14.2 10^3/uL (4.0-10.0) H 03/16/22 04:02 RBC 4.27 10^6/uL (4.1-5.3) 03/16/22 04:02 Hgb 12.1 g/dL (11.7-16.6) 03/16/22 04:02 Hct 38.4 % (42.0-52.0) L 03/16/22 04:02 MCV 89.9 fl (80-94) 03/16/22 04:02 MCH 28.3 pg (28.0-34.0) 03/16/22 04:02 MCHC 31.5 g/dL (30.0-36.0) 03/16/22 04:02 RDW 15.4 % (12.1-15.1) H 03/16/22 04:02 Plt Count 173 10^3/cmm (130-400) 03/16/22 04:02 MPV 11.6 fL (7.4-10.4) H 03/16/22 04:02 Neut % (Auto) 87.7 % 03/16/22 04:02 Lymph % (Auto) 5.9 % 03/16/22 04:02 [place] % (Auto) 5.9 % 03/16/22 04:02 Eos % (Auto) 0.0 % 03/16/22 04:02 Baso % (Auto) 0.1 % 03/16/22 04:02 Neut # (Auto) 12.43 10^3/uL (1.8-7.7) H 03/16/22 04:02 Lymph # (Auto) 0.8 10^3/uL (0.8-4.8) 03/16/22 04:02 [place] # (Auto) 0.8 10^3/uL (0.2-0.9) 03/16/22 04:02 Eos # (Auto) 0.0 10^3/uL (0.0-0.8) 03/16/22 04:02 Baso # (Auto) 0.0 10^3/uL (0.0-0.1) 03/16/22 04:02 Nucleated RBC % (auto) 0 % 03/16/22 04:02 Nucleated RBCs # 0.0 /100WBC 03/16/22 04:02 Sodium 137 mmol/L (136-145) 03/16/22 04:02 Potassium 3.8 mmol/L (3.5-5.1) 03/16/22 04:02 Chloride 102 mmol/L (98-107) 03/16/22 04:02 Carbon Dioxide 28 mmol/L (22-29) 03/16/22 04:02 Anion Gap 10.8 (5-19) 03/16/22 04:02 BUN 24 mg/dL (8-23) H 03/16/22 04:02 Creatinine 1.2 mg/dL (0.7-1.2) 03/16/22 04:02 GFR Calculation 60.8 mL/min (90-130) L 03/16/22 04:02 Glucose 139 mg/dL (65-115) H 03/16/22 04:02 Calculated Osmolality 290 mOsm/kg (285-295) 03/16/22 04:02 Calcium 8.4 mg/dL (8.5-10.5) L 03/16/22 04:02 Total Bilirubin 0.5 mg/dL (0.15-1.2) 03/15/22 08:15 AST 16 U/L (0-40) 03/15/22 08:15 ALT 18 U/L (0-41) 03/15/22 08:15 Alkaline Phosphatase 70 U/L (40-130) 03/15/22 08:15 Total Protein 6.6 g/dL (6.6-8.7) 03/15/22 08:15 Albumin 3.8 g/dL (3.5-5.2) 03/15/22 08:15 Globulin 2.8 g/dL (1.3-4.6) 03/15/22 08:15 Lipase 62 U/L (13-60) H 03/15/22 08:15 Additional Data from Hospital Stay White blood cell count is slightly elevated today, consistent with acute appendicitis/recent stress of surgery. Vitals Last Vital Signs Temp 97.9 F 03/16/22 07:56 Pulse 64 03/16/22 07:56 Resp 16 03/16/22 07:56 BP 145/70 03/16/22 07:56 Pulse Ox 94 03/16/22 07:56 O2 Del Method 03/16/22 07:56 O2 Flow Rate 2 09/15/22 14:45 Discharge Plan Discharge Patient Disposition: Home Condition: Stable Prescriptions: New docusate sodium 100 mg capsule 100 mg PO BID Qty: 10 0RF senna 8.6 mg capsule 8.6 mg PO DAILY Qty: 10 0RF Continued tramadol 50 mg tablet 50 mg PO DAILY buspirone 15 mg tablet 15 mg PO BID trazodone 150 mg tablet 150 mg PO DAILY furosemide 20 mg tablet 40 mg PO DAILY ropinirole 2 mg tablet 3 mg PO DAILY potassium chloride 10 mEq capsule, extended release 20 meq PO DAILY sildenafil 100 mg tablet 100 mg PO DAILY PRN (Reason: sexual activity) Qty: 20 6RF Rx Instructions: Take 1 hour before intercourse, on empty stomach, max dose 100 mg, NO NITROGLYCERIN ibuprofen 600 mg tablet 600 mg PO Q6H PRN (Reason: Pain) tamsulosin 0.4 mg capsule 0.8 mg PO BEDTIME duloxetine 20 mg capsule,delayed release(DR/EC) 30 mg PO DAILY valsartan 160 mg tablet 160 mg PO DAILY Qty: 30 1RF oxycodone-acetaminophen 5-325 mg tablet 1 tab PO Q4H PRN (Reason: pain) 7 Days Qty: 40 0RF amlodipine 10 mg tablet 10 mg PO DAILY Qty: 90 0RF finasteride 5 mg tablet 5 mg PO DAILY Qty: 100 3RF (DME) Bone Growth Stimulator [id number] See Rx Instructions .Route .MEDSUPPLY Qty: 1 0RF Rx Instructions: As directed. hydrochlorothiazide 25 mg tablet 50 mg PO DAILY Qty: 180 1RF baclofen 20 mg tablet 20 mg PO TID Aspir-81 81 mg Tablet,Delayed Release (Dr/Ec) 81 mg PO DAILY Discharge Orders: Discharge Order (Routine); Ordered 03/16/22 Ordered By: Jose Antonio Oliva Referrals: Samuel Farrell DO [Physician] - 03/27/22 1:15 pm (with preclinic appointment CBC) Ranjit Ness MD [Primary Care Provider] - 03/23/22 9:30 am Discharge Diet: Cardiac, Low Cholesterol and Low Fat Discharge Activity: Limit activity as instructed Patient Instructions: Appendicitis (GEN), Opioid Safety, Post Anesthesia Care Activity Restrictions/Additional Instructions: DIET: - Solid meals. - Start taking stool softner/laxatives if you do not have a bowel movement in 1- 2 days after surgery. WOUND CARE: - Apply ice pack to your wounds for 20 min every 4 hours x 2-3 days and as needed to prevent swelling and reduce pain. - Ok to shower tomorrow. [Do not remove paper strips from your wound.] Let the water and soap run over the wounds, do not scrub. No soaking in a bath tab. Pat it dry after the shower and replace the band aid. ACTIVITY: - No heavy lifting, no more than 15 lbs x 4 weeks. No heavy pushing. - All other activities as tolerated, avoid strenuous exercise of any sort for 2 weeks. PAIN CONTROL: - First line: Tylenol 650mg PO q6h x 5 days; stop taking it if you have no pain at all. - Second line: Ibuprofen 800 mg PO q8h for 5 days as needed for pain - Back up thirud line: Percocet PRN for pain; start taking Percocet if Tylenol with Ibuprofen are not effective FOLLOW-UP CARE: Please, call to confirm/arrange for appointment, - with General Surgery, [Dr. Samuel Farrell] in 2 weeks with preclinic cbc; please, call to confirm an appointment PRECAUTIONS: If you taking any opioids, including but not limited to [place]/Vicodin/Percocet/Tramadol/Codeine: Do not drive or operate any heavy machinery Do not consume alcohol, tranquilizers Contact surgery office/go to emergency room with any of the following: Fever over 101 F. Pain not relieved by medications ordered. Increase redness, warmth, swelling or hardness around the operative area. Blood-soaked dressing (small amounts of drainage may be normal). Increasing drainage from the surgical area or exam site. Inability to urinate, Persistent nausea, vomiting, inability to tolerate oral intake, worsening abdominal pain/distention, inability to pass gas for more than 24h. Discharge Attestations Time Spent in Discharge Care*: less than 30 min Quality Metrics Clinical Quality Measures [ No reported AMI, CVA or VTE this stay] Coding Level of Care Code Acute Chg FW DC note Diagnoses Acute appendicitis K35.80 Umbilical hernia without mention of obstruction or gangrene K42.9 HTN (hypertension) I10 Hypertension type: unspecified BPH (benign prostatic hyperplasia) N40.0 Lower urinary tract symptom presence: unspecified whether lower urinary tract symptoms present Hypercholesteremia E78.00 Varicose veins of both lower extremities I83.93
[2022-03-16] MEDS: TRAMadol 50 mg Tablet PO (09:51)
[2022-03-16] MEDS: amlodipine 10 mg Tablet PO (09:51)
[2022-03-16] MEDS: baclofen 10 mg Tablet 20 MG PO (09:52)
[2022-03-16] MEDS: finasteride 5 mg Tablet PO (09:52)
[2022-03-16] MEDS: aspirin 81 mg EC Tablet PO (09:53)
[2022-03-16] MEDS: BuSPIRONE 10 mg Tablet PO (09:54)
[2022-03-16] MEDS: duloxetine 30 mg Capsule PO (10:16)
== END 2022-03-16 14:53 | disposition home or self-care (01) ==
LOC: ER 09:48 → OR 10:40 → MEDSURG 23:56
PROVIDERS: Admitting Provider Surgery; Emergency Provider Emergency Medicine; PCP Family Medicine; Visit Provider Surgery
PROC: 0DTJ4ZZ Resection of Appendix, Percutaneous Endoscopic Approach (ICD-10-PCS; CPT 44970; principal; 2022-03-15 10:00)
DX: K35.80 Unspecified acute appendicitis (principal); K42.9 Umbilical hernia without obstruction or gangrene; I10 Essential (primary) hypertension; E78.00 Pure hypercholesterolemia, unspecified; I83.93 Asymptomatic varicose veins of bilateral lower extremities; E66.01 Morbid (severe) obesity due to excess calories; Z68.41 Body mass index [BMI] 40.0-44.9, adult; Z79.891 Long term (current) use of opiate analgesic; Z79.82 Long term (current) use of aspirin; N40.1 Benign prostatic hyperplasia with lower urinary tract symptoms; N13.8 Other obstructive and reflux uropathy
CPT/HCPCS: 44970; 49652; 12345; 36415; 74176; 80048; 80053; 83690; 85025; 88304; 96365; 96372; 96375; 99285; G0378; J0330; J1100; J1170; J1650; J1885; J2175; J2405; J2543; J2704; J2710; J3490; J7030

== ENCOUNTER → 2022-03-27 10:15 | Outpatient (BNVA) | payer MEDICARE, SELFPAY | PROVIDERS: PCP Family Medicine; Visit Provider Surgery | DX: Z98.890 Other specified postprocedural states (principal) | CPT/HCPCS: 99024 ==

== ENCOUNTER → 2022-03-29 09:10 | Outpatient (BNVA) | payer MEDICARE, SELFPAY | PROVIDERS: PCP Family Medicine; Visit Provider Orthopaedic Surgery | DX: M25.562 Pain in left knee (principal); M25.561 Pain in right knee; Z98.1 Arthrodesis status | CPT/HCPCS: 72100; 99213 ==

== ENCOUNTER → 2022-04-12 13:42 | Outpatient (BNVA) | payer MEDICARE, SELFPAY | PROVIDERS: PCP Family Medicine; Visit Provider Orthopaedic Surgery | DX: M17.0 Bilateral primary osteoarthritis of knee (principal) | CPT/HCPCS: 20610; 73560; 73565; 99213; J0702; J3490 ==

== ENCOUNTER → 2022-05-02 13:44 | Outpatient (BNVA) | payer MEDICARE, SELFPAY | PROVIDERS: PCP Family Medicine; Visit Provider Urology | DX: N40.1 Benign prostatic hyperplasia with lower urinary tract symptoms (principal); N52.1 Erectile dysfunction due to diseases classified elsewhere | CPT/HCPCS: 51741; 51798; 81003; 99213 ==

== ENCOUNTER → 2022-08-06 15:25 | Outpatient (BNVA) | payer MEDICARE, SELFPAY | PROVIDERS: PCP Family Medicine; Visit Provider Internal Medicine Cardiovascular Disease | DX: I10 Essential (primary) hypertension (principal); E78.00 Pure hypercholesterolemia, unspecified; I83.93 Asymptomatic varicose veins of bilateral lower extremities; Z98.1 Arthrodesis status | CPT/HCPCS: 99214; Q3014 ==

== ENCOUNTER → 2022-08-27 08:46 | Outpatient (BNVA) | payer MEDICARE, SELFPAY | PROVIDERS: PCP Family Medicine; Referring Provider Family Medicine; Visit Provider Anesthesiology Pain Medicine | DX: M48.062 Spinal stenosis, lumbar region with neurogenic claudication (principal); M43.16 Spondylolisthesis, lumbar region; M47.816 Spondylosis without myelopathy or radiculopathy, lumbar region; Z98.890 Other specified postprocedural states; Z98.1 Arthrodesis status | CPT/HCPCS: 99214 ==

== ENCOUNTER → 2022-10-08 09:46 | Outpatient (BNVA) | payer MEDICARE, SELFPAY | PROVIDERS: PCP Family Medicine; Visit Provider Anesthesiology Pain Medicine | DX: M48.062 Spinal stenosis, lumbar region with neurogenic claudication (principal); M43.16 Spondylolisthesis, lumbar region; M47.816 Spondylosis without myelopathy or radiculopathy, lumbar region; Z98.890 Other specified postprocedural states; Z98.1 Arthrodesis status | CPT/HCPCS: 99214 ==

== ENCOUNTER → 2022-10-10 10:54 | Outpatient (BNVA) | payer MEDICARE, SELFPAY | PROVIDERS: PCP Family Medicine; Visit Provider Orthopaedic Surgery | DX: M17.12 Unilateral primary osteoarthritis, left knee (principal) | CPT/HCPCS: 20610; J0702; J3490 ==

== ENCOUNTER → 2022-10-22 14:32 | Outpatient (BNVA) | payer MEDICARE, SELFPAY | PROVIDERS: PCP Family Medicine; Visit Provider Anesthesiology Pain Medicine | DX: M47.816 Spondylosis without myelopathy or radiculopathy, lumbar region (principal); M48.062 Spinal stenosis, lumbar region with neurogenic claudication | CPT/HCPCS: 64493; 64494; 64495; J3490 ==

== ENCOUNTER → 2022-11-06 12:38 | Outpatient (BNVA) | payer MEDICARE, SELFPAY | PROVIDERS: PCP Family Medicine; Visit Provider Anesthesiology Pain Medicine | DX: M47.816 Spondylosis without myelopathy or radiculopathy, lumbar region (principal); M48.062 Spinal stenosis, lumbar region with neurogenic claudication | CPT/HCPCS: 64493; 64494; 64495; J3490 ==

== ENCOUNTER → 2022-11-27 09:27 | Outpatient (BNVA) | payer MEDICARE, SELFPAY | PROVIDERS: PCP Family Medicine; Visit Provider Anesthesiology Pain Medicine | DX: M48.062 Spinal stenosis, lumbar region with neurogenic claudication (principal); M43.16 Spondylolisthesis, lumbar region; M47.816 Spondylosis without myelopathy or radiculopathy, lumbar region; Z98.890 Other specified postprocedural states; Z98.1 Arthrodesis status | CPT/HCPCS: 99214 ==

== ENCOUNTER → 2022-12-13 14:01 | Outpatient (BNVA) | payer MEDICARE, SELFPAY | PROVIDERS: PCP Family Medicine; Visit Provider Anesthesiology Pain Medicine | DX: M47.816 Spondylosis without myelopathy or radiculopathy, lumbar region (principal); M48.062 Spinal stenosis, lumbar region with neurogenic claudication | CPT/HCPCS: 64635; 64636; J1030 ==

== ENCOUNTER → 2022-12-18 10:36 | Outpatient (BNVA) | payer MEDICARE, SELFPAY | PROVIDERS: PCP Family Medicine; Visit Provider Anesthesiology Pain Medicine | DX: M47.816 Spondylosis without myelopathy or radiculopathy, lumbar region (principal); M48.062 Spinal stenosis, lumbar region with neurogenic claudication; M43.16 Spondylolisthesis, lumbar region; Z98.1 Arthrodesis status; Z98.890 Other specified postprocedural states | CPT/HCPCS: 99214 ==

== ENCOUNTER → 2022-12-27 12:53 | Outpatient (BNVA) | payer MEDICARE, SELFPAY | PROVIDERS: PCP Family Medicine; Visit Provider Anesthesiology Pain Medicine | DX: M54.16 Radiculopathy, lumbar region (principal); M48.062 Spinal stenosis, lumbar region with neurogenic claudication | CPT/HCPCS: 64483; 64484; J1100; J3490 ==

== ENCOUNTER 2023-01-07 07:48 | Outpatient (CLI) | payer MEDICARE, SELFPAY ==
--- NOTE | 2023-01-07 08:00 | MR_ITS ---
WS: [id number] MRI LUMBAR SPINE NONCONTRAST TECHNIQUE: Sagittal T1, T2 and STIR imaging. Axial T1 and T2 imaging. CLINICAL INFORMATION: M47.816 - Spondylosis without myelopathy or radiculopathy... COMPARISON: MRI 09/19 FINDINGS: Prior postoperative changes RIGHT hemilaminectomy at L4-L5. Pedicle screw fixation L4-S1 with laminec hector defects new compared to previous. Interbody fusion L5-S1 is new. L1-L2: Mild facet arthropathy. Spinal canal and foramen are patent. L2-L3: No significant disc bulging. Mild facet arthropathy. Spinal canal and foramen are patent. L3-L4: No significant disc bulging. Mild facet arthropathy ligamentum flavum hypertrophy. Narrowing o f the subarticular recess bilaterally with mild central canal stenosis unchanged. Mild RIGHT foramina l narrowing. L4-L5:Postoperative changes.Moderate facet arthropathy with ligamentum flavum hypertroph y. Spinal canal is patent. Mild bilateral foraminal narrowing L5-S1: Postoperative changes are new compared to previous. Spinal canal is patent. Minimal narrowing of the LEFT subarticular recess. Mild foraminal narrowing. Visualized pelvic bony structures: Normal. Paravertebral soft tissues: Normal. MR/MR lumbar spine wo con* [id number] IMPRESSION: 1. Stable Postoperative changes RIGHT L4-L5 hemilaminectomy 2. New pedicle screw fixation L4-S1 with laminectomy defects and interbody bon y fusion L5-S1. Spinal canal is decompressed. 3. Mild central canal stenosis L3-L4 similar to previous with narrowing of the subarticular recess bilaterally unchanged. 4. Mild bilateral L3-L4 foraminal narrowing 5. Mild RIGHT L4-L5 foraminal narrowing.
== END 2023-01-07 07:49 | disposition home or self-care (01) ==
PROVIDERS: PCP Family Medicine; Visit Provider Anesthesiology Pain Medicine
DX: M47.816 Spondylosis without myelopathy or radiculopathy, lumbar region (principal); Z98.1 Arthrodesis status; M48.061 Spinal stenosis, lumbar region without neurogenic claudication
CPT/HCPCS: 72148

== ENCOUNTER → 2023-01-15 09:44 | Outpatient (BNVA) | payer MEDICARE, SELFPAY | PROVIDERS: PCP Family Medicine; Visit Provider Anesthesiology Pain Medicine | DX: M48.062 Spinal stenosis, lumbar region with neurogenic claudication (principal); M43.16 Spondylolisthesis, lumbar region; M47.816 Spondylosis without myelopathy or radiculopathy, lumbar region; Z98.1 Arthrodesis status; Z98.890 Other specified postprocedural states | CPT/HCPCS: 99214 ==

== ENCOUNTER → 2023-01-30 13:49 | Outpatient (BNVA) | payer MEDICARE, SELFPAY | PROVIDERS: PCP Family Medicine; Visit Provider Anesthesiology Pain Medicine | DX: M47.816 Spondylosis without myelopathy or radiculopathy, lumbar region (principal); M48.062 Spinal stenosis, lumbar region with neurogenic claudication | CPT/HCPCS: 64635; 64636; J1030 ==

== ENCOUNTER → 2023-02-18 08:51 | Outpatient (BNVA) | payer MEDICARE, SELFPAY | PROVIDERS: PCP Family Medicine; Visit Provider Anesthesiology Pain Medicine | DX: M48.062 Spinal stenosis, lumbar region with neurogenic claudication (principal); M43.16 Spondylolisthesis, lumbar region; Z98.890 Other specified postprocedural states; Z98.1 Arthrodesis status; M47.816 Spondylosis without myelopathy or radiculopathy, lumbar region | CPT/HCPCS: 99214 ==

== ENCOUNTER → 2023-03-11 08:46 | Outpatient (BNVA) | payer MEDICARE, SELFPAY | PROVIDERS: PCP Family Medicine; Visit Provider Anesthesiology Pain Medicine | DX: M79.18 Myalgia, other site (principal); M72.2 Plantar fascial fibromatosis; M54.2 Cervicalgia | CPT/HCPCS: 20553; 99213 ==

== ENCOUNTER 2023-03-19 13:13 | Emergency (ER) | payer MEDICARE, SELFPAY ==
--- NOTE | 2023-03-19 13:15 | XRR_ITS ---
PROCEDURE INFORMATION: Exam: XR Right Foot Exam date and time: 03/19/2023 1:43 PM Age: 67 years old Clinical indication: Pain; Foot; Right TECHNIQUE: Imaging protocol: Radiologic exam of the right foot. Views: 3 or more views. COMPARISON: No relevant prior studies available. FINDINGS: Bones/joints: Calcaneal plantar spur. Mild interphalangeal arthritic changes. No fracture. Soft tissues: Normal. XR/XR foot RT min 3V* [id number] IMPRESSION: No acute findings.
[2023-03-19 13:20] VITALS: BMI 39.0
[2023-03-19 13:22] VITALS: BP 144/72; PULSE 75; RESP 16; TEMP 37.1; O2SAT 98
--- NOTE | 2023-03-19 13:38 | W.ED.LOWEXIN ---
HPI - Extremity Injury (Lower) General: Chief Complaint: Extremity Injury, Lower Stated Complaint: right foot pain Time Seen by Provider: 03/19/23 13:35 Source: patient Mode of arrival: ambulatory Limitations: no limitations History of Present Illness: Patient is a nice 67-year-old male who presents to ED today with complaint of right foot pain/injury. Patient states he was out in his yard yesterday and stepped wrong and rolled the foot while hearing a pop . He states he has been able to bear weight on the extremity since but has discomfort. He has no other injuries or complaints at this time. He has not noticed any notable swelling or ecchymosis. complaint: foot injury Onset (ago): day(s) (yesterday) Injury: Right: foot Place: home Severity: moderate Relieving factors: immobilization Exacerbating factors: weight bearing Associated symptoms: Reports no associated symptoms Other symptoms: none Review of Systems Musc: Reports: extremity pain (R foot); Denies: neck pain, back pain, extremity swelling, joint pain or joint swelling Neuro: Denies: numbness in extremities, weakness in extremities or sensory changes PFSH ED PFSH: Medical History BPH (benign prostatic hyperplasia) BPH loc w urin obs/LUTS Erectile dysfunction HTN (hypertension) Hypercholesteremia Varicose veins of both lower extremities Surgical History H/O umbilical hernia repair History of back surgery Hx of appendectomy Hx of cervical spine surgery Hx of hernia repair Hx of lumbosacral spine surgery Hx of partial thyroidectomy S/P left knee arthroscopy S/P removal of thyroid nodule Family History Father , at age 84 Natural Mother , at age 42 Cancer Other CAD (coronary artery disease) Social History Smoking and tobacco status: never smoked Alcohol intake: never Substance/Drug Use: never Marital status: Current occupational status: employed and disabled Physical Exam Const: COMMON NORMALS: no acute distress, average body habitus, no limitations, healthy appearing, alert and well nourished GENERAL APPEARANCE: cooperative ORIENTATION/CONSCIOUSNESS: Yes awake, Yes oriented to person, Yes oriented to place and Yes oriented to time Extremity: COMMON NORMALS: normal to inspection, full ROM, capillary refill normal, no joint enlargement, no clubbing, cyanosis or edema, no calf tenderness and no pedal edema GENERAL: Yes normal exam except as noted RIGHT LOWER EXTREMITY: Yes foot & digits (TTP lateral R foot w/o swelling or deformity noted) Right foot and digits: Yes ROM (normal), Yes neurovascular exam (normal) and Yes other (no tenderness to lateral malleolus) Neuro: MARY COMA SCALE: document GCS findings Mary coma scale eye opening: Spontaneous Mary coma scale verbal response: Orientated [place] coma scale motor response: Obey commands [place] coma scale total score: 15 COMMON NORMALS: moves all extremities, no focal motor deficits and no sensory deficits noted SENSORIUM/ORIENTATION: Yes alert, Yes oriented to person, Yes oriented to place and Yes oriented to time Skin: COMMON NORMALS: no rashes or lesions noted GENERAL SKIN EXAM: no rashes or lesions noted TRAUMA: no lacerations or abrasions Course Vital Signs: Vital signs: Vital Signs Temperature 98.8 F 03/19/23 13:22 Pulse Rate 75 03/19/23 13:22 Respiratory Rate 16 03/19/23 13:22 Blood Pressure 144/72 03/19/23 13:22 Pulse Oximetry 98 03/19/23 13:22 Oxygen Delivery Me thod Room Air 03/19/23 13:22 MDM - Extremity Injury (Lower) Medical Decision Making XR negative for acute injury. Will CARLY wrap. Instructions for ice and elevation as well as weightbearing as tolerated. Recommend follow-up with primary care in 1 to 2 weeks if symptoms do not seem to be improving. XR interpretation done by ED provider, pending radiology final review Discharge Plan Discharge Patient Disposition: Home Clinical Impression: Right foot sprain Qualifiers: Encounter type: initial encounter Qualified Code(s): S93.601A - Unspecified sprain of right foot, initial encounter Condition: Stable Prescriptions: No Action tramadol 50 mg tablet 50 mg PO DAILY trazodone 150 mg tablet 150 mg PO DAILY ropinirole 2 mg tablet 3 mg PO DAILY sildenafil 100 mg tablet 100 mg PO DAILY PRN (Reason: sexual activity) Qty: 20 6RF Rx Instructions: Take 1 hour before intercourse, on empty stomach, max dose 100 mg, NO NITROGLYCERIN duloxetine 20 mg capsule,delayed release(DR/EC) 30 mg PO DAILY oxycodone-acetaminophen 5-325 mg tablet 1 tab PO Q4H PRN (Reason: pain) 7 Days Qty: 40 0RF tamsulosin 0.4 mg capsule 0.8 mg PO BEDTIME Qty: 180 3RF finasteride 5 mg tablet 5 mg PO DAILY Qty: 100 3RF meloxicam 7.5 mg tablet 7.5 mg PO DAILY hydrocodone-acetaminophen 5-325 mg tablet 1 tab PO TID PRN (Reason: pain) 7 Days Qty: 21 0RF Rx Instructions: Not to be taken with other opioids amlodipine 10 mg tablet 10 mg PO DAILY Qty: 90 3RF furosemide 40 mg tablet 40 mg PO DAILY Qty: 90 3RF hydrochlorothiazide 50 mg tablet 50 mg PO DAILY Qty: 90 3RF potassium chloride 20 mEq tablet extended release 20 meq PO DAILY Qty: 90 3RF valsartan 160 mg tablet 160 mg PO DAILY Qty: 90 3RF baclofen 20 mg tablet 20 mg PO TID aspirin 81 mg Tablet,Delayed Release (Dr/Ec) 81 mg PO DAILY Discharge Orders: Discharge ED (Routine); Ordered 03/19/23 Ordered By: Ness Ascencio Referrals: Ranjit Ness MD [Primary Care Provider] - Patient Instructions: Foot Sprain (ED), RICE Therapy Activity Restrictions/Additional Instructions: As we discussed ice and elevate the extremity. You may continue taking your anti-inflammatory meloxicam. Continue to wear the compression bandage over the next week or so. We discussed weightbearing as tolerated. You may follow-up with primary care in 1 to 2 weeks if symptoms do not seem to be improving. Coding Level of Care Code ED [employer] Consultant for [facility]
== END 2023-03-19 14:06 | disposition home or self-care (01) ==
PROVIDERS: Emergency Provider Physician Assistant; PCP Family Medicine
DX: S93.601A Unspecified sprain of right foot, initial encounter (principal); Z79.82 Long term (current) use of aspirin; I10 Essential (primary) hypertension; X50.1XXA Overexertion from prolonged static or awkward postures, initial encounter
CPT/HCPCS: 73630; 99283

== ENCOUNTER 2023-03-21 13:49 | Outpatient (CLI) | payer MEDICARE, SELFPAY | END 2023-03-21 13:50 | disposition home or self-care (01) | LOC: SPT 13:50 | PROVIDERS: PCP Family Medicine; Visit Provider Podiatrist Foot & Ankle Surgery | DX: Z46.89 Encounter for fitting and adjustment of other specified devices (principal); M76.71 Peroneal tendinitis, right leg | CPT/HCPCS: 97760; 99203; L1902 ==

== ENCOUNTER → 2023-04-05 07:35 | Outpatient (BNVA) | payer MEDICARE, SELFPAY | PROVIDERS: PCP Family Medicine; Visit Provider Podiatrist Foot & Ankle Surgery | DX: M76.71 Peroneal tendinitis, right leg | CPT/HCPCS: 99213 ==

== ENCOUNTER → 2023-04-22 08:54 | Outpatient (BNVA) | payer MEDICARE, SELFPAY | PROVIDERS: PCP Family Medicine; Visit Provider Physician Assistant | DX: M94.262 Chondromalacia, left knee (principal); M17.12 Unilateral primary osteoarthritis, left knee | CPT/HCPCS: 20610; 99213; J3301 ==

== ENCOUNTER → 2023-05-13 09:01 | Outpatient (BNVA) | payer MEDICARE, SELFPAY | PROVIDERS: PCP Family Medicine; Visit Provider Anesthesiology Pain Medicine | DX: M48.062 Spinal stenosis, lumbar region with neurogenic claudication (principal) | CPT/HCPCS: 99214 ==

== ENCOUNTER → 2023-07-08 08:38 | Outpatient (BNVA) | payer MEDICARE, SELFPAY | PROVIDERS: PCP Family Medicine; Visit Provider Anesthesiology Pain Medicine | DX: M48.062 Spinal stenosis, lumbar region with neurogenic claudication (principal) | CPT/HCPCS: 99214 ==

== ENCOUNTER → 2023-07-18 14:40 | Outpatient (BNVA) | payer MEDICARE, SELFPAY | PROVIDERS: PCP Family Medicine; Visit Provider Anesthesiology Pain Medicine | DX: M79.18 Myalgia, other site (principal); M54.2 Cervicalgia; M48.062 Spinal stenosis, lumbar region with neurogenic claudication; M79.673 Pain in unspecified foot | CPT/HCPCS: 20553; 99214; J1030; J3490 ==

== ENCOUNTER → 2023-09-16 11:11 | Outpatient (BNVA) | payer MEDICARE, SELFPAY | PROVIDERS: PCP Family Medicine; Visit Provider Anesthesiology Pain Medicine | DX: M54.2 Cervicalgia (principal); G89.29 Other chronic pain; M48.062 Spinal stenosis, lumbar region with neurogenic claudication | CPT/HCPCS: 72040; 99214 ==

== ENCOUNTER → 2023-10-14 09:54 | Outpatient (BNVA) | payer MEDICARE, SELFPAY | PROVIDERS: PCP Family Medicine; Visit Provider Anesthesiology Pain Medicine | DX: M48.062 Spinal stenosis, lumbar region with neurogenic claudication (principal); M47.816 Spondylosis without myelopathy or radiculopathy, lumbar region; M54.2 Cervicalgia | CPT/HCPCS: 99214 ==

== ENCOUNTER → 2023-11-04 13:48 | Outpatient (BNVA) | payer MEDICARE, SELFPAY | PROVIDERS: PCP Family Medicine; Visit Provider Internal Medicine Cardiovascular Disease | DX: I10 Essential (primary) hypertension (principal); E78.00 Pure hypercholesterolemia, unspecified; I83.93 Asymptomatic varicose veins of bilateral lower extremities | CPT/HCPCS: 99214 ==

== ENCOUNTER 2023-11-16 07:40 | Emergency (ER) | payer MEDICARE, SELFPAY ==
[2023-11-16 07:53] VITALS: BP 147/80; PULSE 69; RESP 18; TEMP 36.4; O2SAT 96; BMI 41.0
[2023-11-16] MEDS: ketorolac 30 mg/mL INJ IVP (08:14)
[2023-11-16] MEDS: dexamethasone 10 mg/mL INJ IM (08:18)
[2023-11-16] MEDS: sodium chloride 0.9% 1,000 ML 999 ML IV (08:19)
--- NOTE | 2023-11-16 08:20 | ED_ITS ---
HPI - General Adult 2 General: Chief complaint: General Medical Stated complaint: body aches Time Seen by Provider: 11/16/23 08:03 Source: patient Mode of arrival: ambulatory History of Present Illness: 68-year-old male presents to the emergen cy room with complaints of generalized body aches and pains. Has had Lyme's in the past he is having increasing arthropathy left here today he has not taken anything for it he has not had any fever sweats or chills he is on oxycodone and duloxetine for chronic pain he does see the pain clinic as well. He has a history of lumbar stenosis with neurogenic claudication although this seems to be more systemic. No saddle paresthesias no urinary retention or fecal incontinence no recent trauma or falls Onset (ago): day(s) Severity: moderate Quality: aching Relieving factors: none Exacerbating factors: none Associated symptoms: Reports malaise; Deny chest pain, confusion, cough, diaphoresis, decreased appetite, dyspnea, fevers/chills, headache(s), nausea, rash, palpitations, seizures, short of breath, syncope, vomiting or weakness Review of Systems 2 Const: Reports: body aches, fatigue and malaise; Denies: fever(s), chills or diaphoresis Card: Denies: chest pain, palpitations or syncope Resp: Denies: dyspnea GI: Denies: nausea or vomiting : Denies: dysuria, urinary frequency or urinary urgency Musc: Denies: neck pain or back pain Skin/Breast: Denies: rash Neuro: Denies: headache(s) or confusion PFSH ED 2 PFSH: Medical History Erectile dysfunction BPH loc w urin obs/LUTS Varicose veins of both lower extremities HTN (hypertension) BPH (benign prostatic hyperplasia) Hypercholesteremia Surgical History Hx of hernia repair Hx of appendectomy H/O umbilical hernia repair History of back surgery S/P removal of thyroid nodule Hx of cervical spine surgery Hx of partial thyroidectomy Hx of lumbosacral spine surgery S/P left knee arthroscopy Family History Father , at age 84 Natural Mother , at age 42 Cancer Other CAD (coronary artery disease) Social History Smoking and tobacco/nicotine status: never used tobacco/nicotine Alcohol intake: never Substance/Drug Use: never Marital status: Current occupational status: employed and disabled Physical Exam 2 Const: COMMON NORMALS: no acute distress GENERAL APPEARANCE: cooperative and comfortable ORIENTATION/CONSCIOUSNESS: Yes awake, Yes oriented to person, Yes oriented to place and Yes oriented to time HENMT: COMMON NORMALS: normocephalic, atraumatic and hearing grossly normal bilaterally HEAD & SCALP: normocephalic and atraumatic Resp: COMMON NORMALS: normal respiratory effort, No retractions, No use of accessory muscles and clear to auscultation bilaterally AUSCULTATION: clear to auscultation bilaterally Cardio: COMMON NORMALS: regular rate, regular rhythm and No murmurs present (Cardio) RATE: regular rate RHYTHM: regular rhythm GI: COMMON NORMALS: Soft to palpation and No hepatosplenomegaly present A USCULTATION: Yes normoactive bowel sounds PALPATION: Yes Soft to palpation, No Tenderness to palpation present (GI), No Guarding due to palpation present (GI) and Yes No hepatosplenomegaly present Extremity: COMMON NORMALS: normal to inspection, capillary refill normal, no clubbing, cyanosis or edema, no calf tenderness and no pedal edema Neuro: SENSORIUM/ORIENTATION: Yes oriented to person, Yes oriented to place and Yes oriented to time Skin: COMMON NORMALS: no rashes or lesions noted GENERAL SKIN EXAM: no rashes or lesions noted Course 2 Vital Signs: Vital signs: Vital Signs Temperature 97.6 F 11/16/23 07:53 Pulse Rate 57 L 11/16/23 09:29 Respiratory Rate 18 11/16/23 07:53 Blood Pressure 121/62 11/16/23 09:29 Pulse Oximetry 99 11/16/23 09:29 Oxygen Delivery Me thod Room Air 11/16/23 07:53 [facility] - General Adult Medical Decision Making Labs reviewed. Sed rate not elevated white count normal potassium slightly decreased will have patient use his potassium supplement. Creatinine at baseline discharge patient home on steroid and anti-inflammatory. Follow-up with his primary care doctor return if has further problems Medical Records I reviewed the patient's medical records. Lab Data I reviewed the patient's lab results. 11/16/23 08:17 11/16/23 08:17 Laboratory Results WBC 8.36 10^3/uL (3.29-11.43) 11/16/23 08:17 RBC 4.43 10^6/uL (3.85-5.65) 11/16/23 08:17 Hgb 13.80 g/dL (11.27-16.99) 11/16/23 08:17 Hct 41.0 % (37-53) 11/16/23 08:17 MCV 92.6 fl (82-101) 11/16/23 08:17 MCH 31.2 pg (27-33) 11/16/23 08:17 MCHC 33.7 g/dL (30-55) 11/16/23 08:17 RDW 12.6 % (12.1-15.1) 11/16/23 08:17 Plt Count 181 10^3/cmm (157-399) 11/16/23 08:17 MPV 11.0 fL (7.4-10.4) H 11/16/23 08:17 Neut % (Auto) 76.5 % 11/16/23 08:17 Lymph % (Auto) 12.1 % 11/16/23 08:17 [place] % (Auto) 7.4 % 11/16/23 08:17 Eos % (Auto) 3.0 % 11/16/23 08:17 Baso % (Auto) 0.5 % 11/16/23 08:17 Neut # (Auto) 6.40 10^3/uL (1.8-7.7) 11/16/23 08:17 Lymph # (Auto) 1.0 10^3/uL (0.8-4.8) 11/16/23 08:17 [place] # (Auto) 0.6 10^3/uL (0.2-0.9) 11/16/23 08:17 Eos # (Auto) 0.3 10^3/uL (0.0-0.8) 11/16/23 08:17 Baso # (Auto) 0.0 10^3/uL (0.0-0.1) 11/16/23 08:17 Nucleated RBC % (auto) 0 % 11/16/23 08:17 Nucleated RBCs # 0.0 /100WBC 11/16/23 08:17 ESR 6 mm/hr (0-10) 11/16/23 08:17 Sodium 138 mmol/L (136-145) 11/16/23 08:17 Potassium 3.2 mmol/L (3.5-5.1) L 11/16/23 08:17 Chloride 99 mmol/L (98-107) 11/16/23 08:17 Carbon Dioxide 31 mmol/L (22-29) H 11/16/23 08:17 Anion Gap 11.2 (5-19) 11/16/23 08:17 BUN 26 mg/dL (8-23) H 11/16/23 08:17 Creatinine 1.3 mg/dL (0.7-1.2) H 11/16/23 08:17 GFR Calculation 55.1 mL/min (90-130) L 11/16/23 08:17 Glucose 112 mg/dL (65-115) 11/16/23 08:17 Calculated Osmolality 292 mOsm/kg (285-295) 11/16/23 08:17 Lactic Acid 0.8 mmol/L (0.5-2.2) 11/16/23 08:17 Calcium 8.8 mg/dL (8.5-10.5) 11/16/23 08:17 Total Bilirubin 0.4 mg/dL (0.15-1.2) 11/16/23 08:17 AST 17 U/L (0-40) 11/16/23 08:17 ALT 17 U/L (0-41) 11/16/23 08:17 Alkaline Phosphatase 54 U/L (40-130) 11/16/23 08:17 Creatine Kinase 214 U/L (39-308) 11/16/23 08:17 Total Protein 6.3 g/dL (6.6-8.7) L 11/16/23 08:17 Albumin 3.5 g/dL (3.5-5.2) 11/16/23 08:17 Globulin 2.8 g/dL (1.3-4.6) 11/16/23 08:17 Urine Color Yellow (Yellow) 11/16/23 09:02 Urine Appearance Clear (CLEAR) 11/16/23 09:02 Urine pH 6 (5-7) 11/16/23 09:02 Ur Specific [place] 1.010 (1.005-1.030) 11/16/23 09:02 Urine Protein Neg (Negative) 11/16/23 09:02 Urine Glucose (UA) Norm (Normal) 11/16/23 09:02 Urine Ketones Negative (Negative) 11/16/23 09:02 Urine Blood Neg (Negative) 11/16/23 09:02 Urine Nitrate Negative (Negative) 11/16/23 09:02 Urine Bilirubin Neg (Negative) 11/16/23 09:02 Urine Urobilinogen Norm mg/dL (Negative) 11/16/23 09:02 Ur Leukocyte Esterase Negative (Negative) 11/16/23 09:02 All radiology interpretation(s) finalized by discharge Discharge Plan Discharge Patient Disposition: Home Clinical Impression: Arthralgia, History of Lyme disease Condition: Stable Prescriptions: New prednisone 20 mg tablet 20 mg PO TID Qty: 15 0RF Rx Instructions: 1 p.o. 3 times daily x3 days, 1 p.o. twice daily x2 days, 1 p.o. daily x2 days diclofenac sodium 75 mg tablet,delayed release (DR/EC) 75 mg PO Q12H PRN (Reason: pain) Qty: 20 0RF No Action trazodone 150 mg tablet 150 mg PO DAILY ropinirole 2 mg tablet 3 mg PO DAILY oxycodone-acetaminophen 5-325 mg tablet 1 tab PO Q8H PRN tramadol 50 mg tablet 50 mg PO DAILY duloxetine 30 mg capsule,delayed release(DR/EC) 30 mg PO DAILY buspirone 15 mg tablet 15 mg PO BID Rx Instructions: 15 mg am 1/2 tab in the pm finasteride 5 mg tablet 5 mg PO DAILY Qty: 100 3RF (DME) ASO braochoa See Rx Instructions .Route .MEDSUPPLY Qty: 1 0RF Rx Instructions: As directed by Physical Therapy amlodipine 10 mg tablet 10 mg PO DAILY Qty: 90 3RF valsartan 160 mg tablet 160 mg PO DAILY Qty: 90 3RF furosemide 40 mg tablet 40 mg PO DAILY Qty: 90 3RF potassium chloride 20 mEq tablet extended release 20 meq PO DAILY Qty: 90 3RF hydrochlorothiazide 50 mg tablet 50 mg PO DAILY Qty: 90 3RF baclofen 20 mg tablet 20 mg PO TID acetaminophen 325 mg Tablet 625 mg PO BID aspirin 81 mg Tablet,Delayed Release (Dr/Ec) 81 mg PO DAILY Discharge Orders: Discharge ED (Routine); Ordered 11/16/23 Ordered By: Ramon Pinon Referrals: Ranjit Ness MD [Primary Care Provider] - Patient Instructions: Opioid Safety, Pain Management Activity Restrictions/Additional Instructions: Thank you for choosing [facility] for your healthcare needs today. Please realize this is an emergency room and that we are providing you with a medical screening exam and this may not be complete and all inclusive of all the testing and or work up that you may need to determine your ailment or severity of your illness. It is very important that you follow up as instructed or that you return to the Emergency Department should you have concerns or if your condition changes or worsens in any way. You are seen today for complaints of muscle aches and pains your laboratory test show normal white count. Inflammatory markers were not elevated the potassium was slightly low otherwise your other laboratory tests and urine were unremarkable. Recommend steroid taper and diclofenac to use as needed follow-up with your primary care doctor. Coding Level of Care Code ED [employer] for Lion Britt
[2023-11-16 08:45] LABS: Basophils % 0.5 %; Eosinophils # 0.3 10^3/uL (0.0-0.8); Lymphocytes % 12.1 %; Mean Corpuscular HGB Conc 33.7 g/dL (30-55); Mean Corpuscular Hemoglobin 31.2 pg (27-33); Mean Corpuscular Volume 92.6 fl (82-101); Monocytes # 0.6 10^3/uL (0.2-0.9); Monocytes % 7.4 %; Neutrophils % 76.5 %; Nucleated Red Blood Cells % 0 %; Platelet Count 181 10^3/cmm (157-399); Red Blood Count 4.43 10^6/uL (3.85-5.65); Red Cell Distribution Width 12.6 % (12.1-15.1); White Blood Count 8.36 10^3/uL (3.29-11.43)
[2023-11-16 09:07] LABS: Alanine Aminotransferase 17 U/L (0-41); Albumin Level 3.5 g/dL (3.5-5.2); Alkaline Phosphatase 54 U/L (40-130); Anion Gap 11.2 (5-19); Aspartate Amino Transferase 17 U/L (0-40); Blood Urea Nitrogen 26 mg/dL (8-23); Calcium 8.8 mg/dL (8.5-10.5); Carbon Dioxide 31 mmol/L (22-29); Chloride 99 mmol/L (98-107); Creatine Phosphokinase 214 U/L (39-308); Globulin 2.8 g/dL (1.3-4.6); Glomerular Filtration Rate 55.1 mL/min (90-130); Glucose 112 mg/dL (65-115); Lactic Sepsis W/Reflex 0.8 mmol/L (0.5-2.2); Osmolality Calculated 292 mOsm/kg (285-295); Potassium 3.2 mmol/L (3.5-5.1); Sodium 138 mmol/L (136-145); Total Bilirubin 0.4 mg/dL (0.15-1.2); Total Protein 6.3 g/dL (6.6-8.7)
[2023-11-16 09:14] LABS: Creatinine Clr Calc Pharmacy 74.6306
[2023-11-16 09:29] VITALS: BP 121/62; PULSE 57; O2SAT 99
[2023-11-16 09:33] LABS: Add Urine Microscopic? NO; Charge for UA Resulting for Rev
[2023-11-16 09:36] LABS: Bilirubin Urine Neg (Negative); Blood Urine Neg (Negative); Glucose Urine UA Norm (Normal); Ketones Urine Negative (Negative); Leukocyte Esterase Urine Negative (Negative); Nitrate Urine Negative (Negative); Protein Urine Neg (Negative); Urine Appearance Clear (CLEAR); Urine Color Yellow (Yellow); Urobilinogen Urine Norm (Negative); pH Urine 6 (5-7)
[2023-11-16 09:53] LABS: Erythrocyte Sedimentation Rate 6 mm/hr (0-10)
== END 2023-11-16 10:34 | disposition home or self-care (01) ==
PROVIDERS: Emergency Provider Family Medicine; PCP Family Medicine
DX: M25.50 Pain in unspecified joint (principal); Z86.19 Personal history of other infectious and parasitic diseases
CPT/HCPCS: 80053; 81003; 82550; 83605; 85025; 85651; 96372; 96374; 99284; J1100; J1885; J7030

== ENCOUNTER → 2023-12-24 15:27 | Outpatient (BNVA) | payer MEDICARE, SELFPAY | PROVIDERS: PCP Family Medicine; Visit Provider Physician Assistant | DX: M17.0 Bilateral primary osteoarthritis of knee (principal) | CPT/HCPCS: 20610; 73560; 73565; 99213; J3301 ==

== ENCOUNTER → 2024-04-16 15:01 | Outpatient (BNVA) | payer MEDICARE, SELFPAY | PROVIDERS: PCP Family Medicine; Visit Provider Physician Assistant | DX: M25.562 Pain in left knee (principal); M17.12 Unilateral primary osteoarthritis, left knee | CPT/HCPCS: 20610; 99213; J3301 ==

== ENCOUNTER 2024-06-24 16:04 | Emergency (ER) | payer MEDICARE, SELFPAY ==
[2024-06-24 16:11] VITALS: BP 181/79; PULSE 80; RESP 17; TEMP 36.6; O2SAT 96; BMI 39.4
--- NOTE | 2024-06-24 16:19 | ED_ITS ---
HPI - Neck Pain/Injury General: Chief Complaint: Neck Pain/Injury Stated Complaint: pain in neck Time Seen by Provider: 06/24/24 16:05 Source: patient Mode of arrival: ambulatory Limitations: no limitations History of Present Illness: 68-year-old male has a history of chroni c pain on chronic neck pain states had some increased left-sided neck pain over the last week. States pains left-sided neck much worse with movement and palpation denies any injuries denies any weakness or numbness down his arm denies chest pain. Associated symptoms: Denies headache(s) or nausea Related Data Home Medications Medication Instructions Recorded Confirmed trazodone 150 mg tablet 150 mg PO DAILY 12/28/19 04/16/24 baclofen 20 mg tablet 20 mg PO TID 09/28/21 04/16/24 ropinirole 2 mg tablet 3 mg PO DAILY 02/14/22 04/16/24 aspirin 81 mg tablet,delayed 81 mg PO DAILY 03/15/22 04/16/24 release acetaminophen 325 mg tablet 625 mg PO BID 03/19/23 04/16/24 buspirone 15 mg tablet 15 mg PO BID 04/22/23 04/16/24 duloxetine 30 mg capsule,delayed 30 mg PO DAILY 04/22/23 04/16/24 release oxycodone-acetaminophen 5 mg-325 1 tab PO Q8H PRN 11/04/23 04/16/24 mg tablet tramadol 50 mg tablet 50 mg PO DAILY 11/04/23 04/16/24 Previous Rx's Medication Instructions Recorded finasteride 5 mg tablet 5 mg PO DAILY #100 tabs 05/02/22 amlodipine 10 mg tablet 10 mg PO DAILY #90 tabs 09/12/22 ASO brace #1 ea 03/21/23 diclofenac sodium 75 mg 75 mg PO Q12H PRN pain #20 tabs 11/16/23 tablet,delayed release furosemide 40 mg tablet 40 mg PO DAILY #90 tabs 04/29/24 potassium chloride 20 mEq 20 meq PO DAILY #90 tabs 04/29/24 tablet,extended release valsartan 160 mg tablet 160 mg PO DAILY #90 tabs 04/29/24 Allergies Allergy/AdvReac Type Severity Reaction Status Date / Time No Known Allergies Allergy Verified 04/16/24 15:06 Review of Systems Const: Denies: fever(s), chills, body aches or change in appetite ENMT: Denies: throat pain or dental pain Card: Denies: chest pain Resp: Denies: dyspnea GI: Denies: abdominal pain, nausea, vomiting or diarrhea Musc: Reports: neck pain; Denies: back pain Skin/Breast: Denies: rash Neuro: Denies: headache(s) PFSH ED PFSH: Medical History Erectile dysfunction BPH loc w urin obs/LUTS Varicose veins of both lower extremities HTN (hypertension) BPH (benign prostatic hyperplasia) Hypercholesteremia Surgical History Hx of hernia repair Hx of appendectomy H/O umbilical hernia repair History of back surgery S/P removal of thyroid nodule Hx of cervical spine surgery Hx of partial thyroidectomy Hx of lumbosacral spine surgery S/P left knee arthroscopy Family History Father , at age 84 Natural Mother , at age 42 Cancer Other CAD (coronary artery disease) Social History Smoking and tobacco/nicotine status: never used tobacco/nicotine Alcohol intake: never Substance/Drug Use: never Marital status: Current occupational status: employed and disabled Physical Exam Const: COMMON NORMALS: no acute distress, patient oriented x3 and healthy appearing HENMT: COMMON NORMALS: normocephalic and atraumatic HEAD & SCALP: normocephalic and atraumatic Eye: COMMON NORMALS: conjunctivae normal CONJUNCTIVA: Yes conjunctivae normal Neck/C-Spine: COMMON NORMALS: full ROM OTHER: Tenderness noted to left side of the neck no midline tenderness Chest: COMMONS NORMALS: normal inspection of the chest Resp: COMMON NORMALS: normal respiratory effort Cardio: COMMON NORMALS: regular rate RATE: regular rate Extremity: COMMON NORMALS: normal to inspection and full ROM Neuro: COMMON NORMALS: patient oriented x3, moves all extremities and no focal motor deficits Psych: COMMON NORMALS: mental status grossly normal, Normal thought process present and cooperative THOUGHT PROCESS: Normal thought process present Skin: COMMON NORMALS: no rashes or lesions noted and no wounds GENERAL SKIN EXAM: no rashes or lesions noted Course Vital Signs: Vital signs: Vital Signs Temperature 97.9 F 06/24/24 16:11 Pulse Rate 80 06/24/24 16:11 Respiratory Rate 17 06/24/24 16:11 Blood Pressure 181/79 06/24/24 16:11 Pulse Oximetry 96 06/24/24 16:11 Oxygen Delivery Me thod Room Air 06/24/24 16:11 MDM - Neck Pain/Injury Medical Decision Making Patient presents here with neck pain likely muscular in nature no midline tenderness he has no chest pain did give him Toradol he stable for discharge follow-up PCP return if worsening. Medical Records I reviewed the patient's medical records. No radiology studies performed this visit Discharge Plan Discharge Patient Disposition: Home Clinical Impression: Neck pain on left side Condition: Stable Prescriptions: No Action trazodone 150 mg tablet 150 mg PO DAILY ropinirole 2 mg tablet 3 mg PO DAILY oxycodone-acetaminophen 5-325 mg tablet 1 tab PO Q8H PRN tramadol 50 mg tablet 50 mg PO DAILY duloxetine 30 mg capsule,delayed release(DR/EC) 30 mg PO DAILY buspirone 15 mg tablet 15 mg PO BID Rx Instructions: 15 mg am 1/2 tab in the pm finasteride 5 mg tablet 5 mg PO DAILY Qty: 100 3RF (DME) DEJON turner See Rx Instructions .Route .MEDSUPPLY Qty: 1 0RF Rx Instructions: As directed by Physical Therapy amlodipine 10 mg tablet 10 mg PO DAILY Qty: 90 3RF furosemide 40 mg tablet 40 mg PO DAILY Qty: 90 3RF valsartan 160 mg tablet 160 mg PO DAILY Qty: 90 3RF potassium chloride 20 mEq tablet extended release 20 meq PO DAILY Qty: 90 3RF baclofen 20 mg tablet 20 mg PO TID acetaminophen 325 mg Tablet 625 mg PO BID diclofenac sodium 75 mg tablet,delayed release (DR/EC) 75 mg PO Q12H PRN (Reason: pain) Qty: 20 0RF aspirin 81 mg Tablet,Delayed Release (Dr/Ec) 81 mg PO DAILY Discharge Orders: Discharge ED (Routine); Ordered 06/24/24 Ordered By: Garett Willis Referrals: Ranjit Ness MD [Primary Care Provider] - 4-7 days Discharge Diet: Advance as tolerated Discharge Activity: Resume usual activity Patient Instructions: Neck Pain (ED) Coding Level of Care Code ED Health Information Administrator for Lion Britt
[2024-06-24] MEDS: ketorolac 30 mg/mL INJ IM (16:35)
[2024-06-24] MEDS: HYDROcodone-acetaminophen 7.5-325 mg Tablet 1 TAB PO (16:35)
[2024-06-24 16:37] VITALS: BP 181/79; PULSE 74; O2SAT 96
[2024-06-24 16:58] VITALS: BP 181/79; PULSE 75; O2SAT 97
== END 2024-06-24 17:00 | disposition home or self-care (01) ==
PROVIDERS: Emergency Provider Emergency Medicine; PCP Family Medicine
DX: M54.2 Cervicalgia (principal); Z79.82 Long term (current) use of aspirin; I10 Essential (primary) hypertension
CPT/HCPCS: 96372; 99284; J1885

== ENCOUNTER → 2024-07-21 08:47 | Outpatient (BNVA) | payer MEDICARE, SELFPAY | PROVIDERS: PCP Family Medicine; Visit Provider Anesthesiology Pain Medicine | DX: M48.062 Spinal stenosis, lumbar region with neurogenic claudication; M47.812 Spondylosis without myelopathy or radiculopathy, cervical region; M79.671 Pain in right foot; M17.12 Unilateral primary osteoarthritis, left knee; M76.71 Peroneal tendinitis, right leg; M21.621 Bunionette of right foot | CPT/HCPCS: 20610; 73630; 99213; 99214; J7318 ==

== ENCOUNTER 2024-07-21 16:46 | Outpatient (CLI) | payer MEDICARE, SELFPAY | END 2024-07-21 16:47 | disposition home or self-care (01) | LOC: SPT 16:47 | PROVIDERS: PCP Family Medicine; Visit Provider Physician Assistant | DX: Z46.89 Encounter for fitting and adjustment of other specified devices (principal); M17.12 Unilateral primary osteoarthritis, left knee | CPT/HCPCS: 99203; L1851 ==

== ENCOUNTER 2024-08-16 06:30 | Emergency (ER) | payer MEDICARE, SELFPAY ==
[2024-08-16 06:55] VITALS: BP 149/71; PULSE 72; RESP 18; TEMP 36.7; O2SAT 94
--- NOTE | 2024-08-16 06:58 | W.ED.BACK ---
HPI - Back Pain/Injury General: Chief Complaint: Back Pain/Injury Stated Complaint: back pain Time Seen by Provider: 08/16/24 06:55 History of Present Illness: 69-year-old male presents with pain in his right mid back lower ribs with some bruising. He reports the pain gets worse if he moves. He does not recall any injury but he does have a small bruise there. He does work at [employer] and reports that he did try to help move a pallet did a lot of twisting other day but is not sure if that is when the injury occurred. Patienthas taken as baclofen, oxycodone and meloxicam. Associated symptoms: Deny abdominal pain, chills, fever(s), nausea or vomiting Related Data Home Medications ?Medication ?Instructions ?Recorded ?Confirmed trazodone 150 mg tablet 150 mg PO BEDTIME 12/28/19 08/16/24 baclofen 20 mg tablet 20 mg PO TID 09/28/21 08/16/24 aspirin 81 mg tablet,delayed 81 mg PO DAILY 03/15/22 08/16/24 release acetaminophen 325 mg tablet 625 mg PO BID PRN Pain 03/19/23 08/16/24 buspirone 15 mg tablet See Rx Instructions .Route .COMPLEX 04/22/23 08/16/24 duloxetine 30 mg capsule,delayed 30 mg PO DAILY 04/22/23 08/16/24 release oxycodone-acetaminophen 5 mg-325 1 tab PO Q8H PRN Pain 11/04/23 08/16/24 mg tablet tramadol 50 mg tablet 50 mg PO DAILY 11/04/23 08/16/24 meloxicam 15 mg tablet 15 mg PO DAILY 08/16/24 08/16/24 ropinirole 3 mg tablet 3 mg PO DAILY 08/16/24 08/16/24 Previous Rx's ?Medication ?Instructions ?Recorded finasteride 5 mg tablet 5 mg PO DAILY #100 tabs 05/02/22 amlodipine 10 mg tablet 10 mg PO DAILY #90 tabs 09/12/22 ASO brace #1 ea 03/21/23 furosemide 40 mg tablet 40 mg PO DAILY #90 tabs 04/29/24 potassium chloride 20 mEq 20 meq PO DAILY #90 tabs 04/29/24 tablet,extended release valsartan 160 mg tablet 160 mg PO DAILY #90 tabs 04/29/24 Sole supports #1 ea 07/21/24 left knee medial septic tank installer brace #1 ea 07/21/24 Allergies Allergy/AdvReac Type Severity Reaction Status Date / Time No Known Allergies Allergy Verified 07/21/24 15:50 Review of Systems Const: Denies: fever(s) or chills Card: Denies: chest pain or palpitations Resp: Denies: dyspnea or productive cough GI: Denies: abdominal pain, nausea or vomiting Musc: Reports: other (Please see HPI) PFSH ED PFSH: Medical History Erectile dysfunction BPH loc w urin obs/LUTS Varicose veins of both lower extremities HTN (hypertension) BPH (benign prostatic hyperplasia) Hypercholesteremia Surgical History Hx of hernia repair Hx of appendectomy H/O umbilical hernia repair History of back surgery S/P removal of thyroid nodule Hx of cervical spine surgery Hx of partial thyroidectomy Hx of lumbosacral spine surgery S/P left knee arthroscopy Family History Father , at age 84 Natural Mother , at age 42 Cancer Other CAD (coronary artery disease) Social History Smoking and tobacco/nicotine status: never used tobacco/nicotine Alcohol intake: never Substance/Drug Use: never Marital status: Current occupational status: employed and disabled Physical Exam Const: COMMON NORMALS: no acute distress, patient oriented x3 and alert Resp: COMMON NORMALS: normal respiratory effort, No use of accessory muscles and clear to auscultation bilaterally AUSCULTATION: clear to auscultation bilaterally Cardio: COMMON NORMALS: regular rate and regular rhythm RATE: regular rate RHYTHM: regular rhythm Back/Pelvis: GENERAL BACK: Yes ecchymosis and Yes other (Mild tenderness to right posterior lower ribs with small area of bruising. ) THORACIC SPINE/UPPER BACK: Yes thoracic ROM normal and No thoracic spinal tenderness OTHER: Pain reproducible with movement and palpation in the area of ecchymosis Neuro: COMMON NORMALS: patient oriented x3 SENSORIUM/ORIENTATION: Yes alert Skin: NARRATIVE SKIN EXAM: Very small approximately 3 cm area of mild ecchymosis/contusion Course Vital Signs: Vital signs: Vital Signs Temperature 98.1 F 08/16/24 06:55 Pulse Rate 72 08/16/24 06:55 Respiratory Rate 18 08/16/24 06:55 Blood Pressure 149/71 08/16/24 06:55 Pulse Oximetry 94 08/16/24 06:55 Oxygen Delivery Me thod Room Air 08/16/24 06:55 MDM - Back Pain/Injury Medical Decision Making Patient's x-ray was ordered reviewed and shows no acute findings. Patient's symptoms are very consistent with a thoracic muscle strain as symptoms worsen with rotation and movement. Discussed with him supportive care. He can continue uses prescribed medication as needed and then use additional topical lidocaine or Voltaren along with warm moist heat. He should follow-up with a primary care provider in a couple days if symptoms or not improving. He is stable and discharged home Labs Radiology Impressions Ribs X-Ray 08/16/24 07:02 IMPRESSION: 1. Cardiomegaly. All radiology interpretation(s) finalized by discharge Discharge Plan Discharge Patient Disposition: Home Clinical Impression: Strain of thoracic back region Condition: Stable Prescriptions: No Action trazodone 150 mg tablet 150 mg PO BEDTIME oxycodone-acetaminophen 5-325 mg tablet 1 tab PO Q8H PRN (Reason: Pain) tramadol 50 mg tablet 50 mg PO DAILY duloxetine 30 mg capsule,delayed release(DR/EC) 30 mg PO DAILY buspirone 15 mg tablet See Rx Instructions .ROUTE .COMPLEX Rx Instructions: Take 1 tablet by mouth in the morning and 1/2 tablet in the evening. (DME) left knee medial septic tank installer brace See Rx Instructions .Route .MEDSUPPLY Qty: 1 0RF Rx Instructions: As directed (DME) Sole supports See Rx Instructions .Route .MEDSUPPLY Qty: 1 0RF Rx Instructions: As directed finasteride 5 mg tablet 5 mg PO DAILY Qty: 100 3RF (DME) ASO brace See Rx Instructions .Route .MEDSUPPLY Qty: 1 0RF Rx Instructions: As directed by Physical Therapy amlodipine 10 mg tablet 10 mg PO DAILY Qty: 90 3RF furosemide 40 mg tablet 40 mg PO DAILY Qty: 90 3RF valsartan 160 mg tablet 160 mg PO DAILY Qty: 90 3RF potassium chloride 20 mEq tablet extended release 20 meq PO DAILY Qty: 90 3RF baclofen 20 mg tablet 20 mg PO TID acetaminophen 325 mg Tablet 625 mg PO BID PRN (Reason: Pain) aspirin 81 mg Tablet,Delayed Release (Dr/Ec) 81 mg PO DAILY meloxicam 15 mg Tablet 15 mg PO DAILY ropinirole 3 mg tablet 3 mg PO DAILY Discharge Orders: Discharge ED (Routine); Ordered 08/16/24 Ordered By: Randolph Mercado Referrals: Ranjit Ness MD [Primary Care Provider] - Discharge Diet: Advance as tolerated Discharge Activity: Increase activity as tolerated Patient Instructions: Thoracic Back Strain (ED), Opioid Safety, Pain Management Activity Restrictions/Additional Instructions: 4% topical lidocaine with menthol cream gel or patch, Voltaren cream or gel. Please use these as directed on package in addition to the other medications. Warm moist heat for 10 to 15 minutes at a time 3-4 times daily. Gentle stretching. Follow-up with your primary care provider if symptoms continue to worsen or not improving over the next 3 to 4 days. Stand Alone Forms: Work/School Release Print Language: Japanese Coding Level of Care Code ED [employer] for Lion Britt
--- NOTE | 2024-08-16 07:02 | XRR_ITS ---
PROCEDURE INFORMATION: Exam: XR Right Ribs with PA Chest Exam date and time: 08/16/2024 7:16 AM Age: 69 years old Clinical indication: Pain and injury or trauma; Other: Lifting, twisting injury; Chest wall and rib area; Sprain or strain; Chest wall pain; Right; Additional info: Pain, bruising TECHNIQUE: Imaging protocol: Radiologic exam of the right ribs with PA chest. Views: 3 views COMPARISON: CR XR chest 1V portable [id number] 01/08/2022 4:26 PM FINDINGS: Lungs: Unremarkable. No consolidation. Pleural spaces: Unremarkable. No pleural effusion. No pneumothorax. Heart/Mediastinum: The heart is enlarged. Bones/joints: There are postoperative changes involving the cervical spine. No definite rib fracture is noted on the right. XR/XR ribs RT mn 3V w CXR1V [id number] IMPRESSION: 1. Cardiomegaly.
[2024-08-16 08:07] VITALS: BP 123/64; PULSE 59; O2SAT 96
== END 2024-08-16 08:08 | disposition home or self-care (01) ==
PROVIDERS: Emergency Provider Student in an Organized Health Care Education/Training Program; PCP Family Medicine
DX: S29.012A Strain of muscle and tendon of back wall of thorax, initial encounter (principal); Z79.82 Long term (current) use of aspirin; I10 Essential (primary) hypertension; X58.XXXA Exposure to other specified factors, initial encounter
CPT/HCPCS: 71101; 99283

== ENCOUNTER 2024-08-18 11:09 | Outpatient (CLI) | payer MEDICARE, SELFPAY | END 2024-08-18 11:10 | disposition home or self-care (01) | LOC: SPT 11:10 | PROVIDERS: PCP Family Medicine; Visit Provider Podiatrist Foot & Ankle Surgery | DX: Z46.89 Encounter for fitting and adjustment of other specified devices (principal); M79.671 Pain in right foot; M76.71 Peroneal tendinitis, right leg; M21.621 Bunionette of right foot | CPT/HCPCS: L3030 ==

== ENCOUNTER → 2024-09-01 09:38 | Outpatient (BNVA) | payer MEDICARE, SELFPAY | PROVIDERS: PCP Family Medicine; Visit Provider Anesthesiology Pain Medicine | DX: M48.062 Spinal stenosis, lumbar region with neurogenic claudication (principal); M47.812 Spondylosis without myelopathy or radiculopathy, cervical region | CPT/HCPCS: 99214 ==

== ENCOUNTER 2024-09-16 17:24 | Emergency (ER) | payer MEDICARE, SELFPAY ==
[2024-09-16 17:32] VITALS: BP 124/82; PULSE 85; RESP 18; TEMP 36.7; O2SAT 97; BMI 38.4
--- NOTE | 2024-09-16 17:42 | XRR_ITS ---
PROCEDURE INFORMATION: Exam: XR Chest Exam date and time: 09/16/2024 5:49 PM Age: 69 years old Clinical indication: Cough and shortness of breath; Additional info: Dyspnea/cough TECHNIQUE: Imaging protocol: Radiologic exam of the chest. Views: 1 view. COMPARISON: CR (CHEST, ) 08/16/2024 7:16 AM FINDINGS: Lungs: Unremarkable. No consolidation. Pleural spaces: Unremarkable. No pleural effusion. No pneumothorax. Heart/Mediastinum: Mild cardiomegaly. Vasculature: Somewhat tortuous thoracic aorta. Bones/joints: Prior cervical spine fusion. XR/XR chest 1V portable [id number] IMPRESSION: 1. Mild cardiomegaly. 2. No acute cardiopulmonary process.
--- NOTE | 2024-09-16 17:46 | ECG_ITS ---
[facility] Date: 2024-09-16 Pat Name: Christian Colin Department: Room: Gender: Male Anodic Treater: : 1955 Requested By: Ramon Ocampo Order Number: [id number] Luis Manuel MD: Eugenio Vega M.D. Measurements Intervals [place] Rate: 65 P: 54 DE: 226 QRS: 54 QRSD: 106 T: 28 QT: 392 QTc: 408 Interpretive Statements SINUS RHYTHM WITH FIRST DEGREE AV BLOCK Compared to ECG 01/08/2022 18:13:37 Sinus bradycardia no longer present Electronically Signed On 09-16-2024 21:52:10 CDT by Eugenio Vega M.D. [email or web address] [id number]
--- NOTE | 2024-09-16 17:57 | W.ED.WEAKNES ---
HPI - Weakness General: Chief complaint: Weakness Stated complaint: weakness body aches Time Seen by Provider: 09/16/24 17:38 History of Present Illness: 69-year-old male presents emergency room complaining of generally not feeling well. About a week week and a half ago he was ill with flulike symptoms he actually tested negative the tested positive during the same timeframe been started on Topamax he also his blood pressure got low it also made very tired so he stopped both of those he still having weakness and tiredness wanted to be evaluated. He denies chest pain denies abdominal pain he has some loose stools no ayana diarrhea no hematochezia melena hematemesis coffee-ground emesis. No fever sweats or chills minimally productive cough of clear mucus. Associated symptoms: Denies chest pain, chills, dysuria or fever(s) Review of Systems Const: Denies: fever(s) or chills Card: Denies: chest pain Resp: Denies: dyspnea GI: Denies: abdominal pain : Denies: dysuria, urinary frequency or urinary urgency Musc: Denies: neck pain or back pain Skin/Breast: Denies: rash PFSH ED PFSH: Medical History Erectile dysfunction BPH loc w urin obs/LUTS Varicose veins of both lower extremities HTN (hypertension) BPH (benign prostatic hyperplasia) Hypercholesteremia Surgical History Hx of hernia repair Hx of appendectomy H/O umbilical hernia repair History of back surgery S/P removal of thyroid nodule Hx of cervical spine surgery Hx of partial thyroidectomy Hx of lumbosacral spine surgery S/P left knee arthroscopy Family History Father , at age 84 Natural Mother , at age 42 Cancer Other CAD (coronary artery disease) Social History Smoking and tobacco/nicotine status: never used tobacco/nicotine Alcohol intake: never Substance/Drug Use: never Marital status: Current occupational status: employed and disabled Physical Exam Const: GENERAL APPEARANCE: cooperative ORIENTATION/CONSCIOUSNESS: Yes awake, Yes oriented to person, Yes oriented to place and Yes oriented to time HENMT: COMMON NORMALS: normocephalic, atraumatic and hearing grossly normal bilaterally HEAD & SCALP: normocephalic and atraumatic Resp: COMMON NORMALS: normal respiratory effort, No retractions, No use of accessory muscles and clear to auscultation bilaterally AUSCULTATION: clear to auscultation bilaterally Cardio: COMMON NORMALS: regular rate, regular rhythm and No murmurs present (Cardio) RATE: regular rate RHYTHM: regular rhythm GI: COMMON NORMALS: Soft to palpation and No hepatosplenomegaly present AUSCULTATION: Yes normoactive bowel sounds PALPATION: Yes Soft to palpation, No Tenderness to palpation present (GI), No Guarding due to palpation present (GI) and Yes No hepatosplenomegaly present Extremity: COMMON NORMALS: normal to inspection, capillary refill normal, no clubbing, cyanosis or edema, no calf tenderness and no pedal edema Neuro: SENSORIUM/ORIENTATION: Yes oriented to person, Yes oriented to place and Yes oriented to time Skin: COMMON NORMALS: no rashes or lesions noted GENERAL SKIN EXAM: no rashes or lesions noted Course Vital Signs: Vital signs: Vital Signs Temperature 98.1 F 09/16/24 17:32 Pulse Rate 66 09/16/24 21:21 Respiratory Rate 16 09/16/24 21:21 Blood Pressure 133/75 09/16/24 21:21 Pulse Oximetry 98 09/16/24 21:21 Oxygen Delivery Me thod Room Air 09/16/24 19:53 MDM - Weakness Medical Decision Making Care signed out to Dr. White at change of shift. See final notes for diagnosis and disposition. Lab Data 09/16/24 18:16 09/16/24 18:16 Laboratory Results WBC 8.13 10^3/uL (3.29-11.43) 09/16/24 18:16 RBC 4.23 10^6/uL (3.85-5.65) 09/16/24 18:16 Hgb 12.80 g/dL (11.27-16.99) 09/16/24 18:16 Hct 38.4 % (37-53) 09/16/24 18:16 MCV 90.8 fl (82-101) 09/16/24 18:16 MCH 30.3 pg (27-33) 09/16/24 18:16 MCHC 33.3 g/dL (30-55) 09/16/24 18:16 RDW 13.0 % (12.1-15.1) 09/16/24 18:16 Plt Count 203 10^3/cmm (157-399) 09/16/24 18:16 MPV 10.6 fL (7.4-10.4) H 09/16/24 18:16 Neut % (Auto) 69.9 % 09/16/24 18:16 Lymph % (Auto) 17.3 % 09/16/24 18:16 [place] % (Auto) 9.1 % 09/16/24 18:16 Eos % (Auto) 2.8 % 09/16/24 18:16 Baso % (Auto) 0.5 % 09/16/24 18:16 Neut # (Auto) 5.68 10^3/uL (1.8-7.7) 09/16/24 18:16 Lymph # (Auto) 1.4 10^3/uL (0.8-4.8) 09/16/24 18:16 [place] # (Auto) 0.7 10^3/uL (0.2-0.9) 09/16/24 18:16 Eos # (Auto) 0.2 10^3/uL (0.0-0.8) 09/16/24 18:16 Baso # (Auto) 0.0 10^3/uL (0.0-0.1) 09/16/24 18:16 Nucleated RBC % (auto) 0 % 09/16/24 18:16 Nucleated RBCs # 0.0 /100WBC 09/16/24 18:16 Sodium 142 mmol/L (136-145) 09/16/24 18:16 Potassium 3.5 mmol/L (3.5-5.1) 09/16/24 18:16 Chloride 108 mmol/L (98-107) H 09/16/24 18:16 Carbon Dioxide 23 mmol/L (22-29) 09/16/24 18:16 Anion Gap 14.5 (5-19) 09/16/24 18:16 BUN 27 mg/dL (8-23) H 09/16/24 18:16 Creatinine 1.2 mg/dL (0.7-1.2) 09/16/24 18:16 GFR Calculation 60.2 mL/min (90-130) L 09/16/24 18:16 Glucose 96 mg/dL (65-115) 09/16/24 18:16 Calculated Osmolality 299 mOsm/kg (285-295) H 09/16/24 18:16 Calcium 8.8 mg/dL (8.5-10.5) 09/16/24 18:16 Total Bilirubin 0.3 mg/dL (0.15-1.2) 09/16/24 18:16 AST 15 U/L (0-40) 09/16/24 18:16 ALT 12 U/L (0-41) 09/16/24 18:16 Alkaline Phosphatase 51 U/L (40-130) 09/16/24 18:16 Ammonia 44 umol/L (16-60) 09/16/24 19:35 Total Protein 6.0 g/dL (6.6-8.7) L 09/16/24 18:16 Albumin 3.8 g/dL (3.5-5.2) 09/16/24 18:16 Globulin 2.2 g/dL (1.3-4.6) 09/16/24 18:16 Urine Color Yellow (Yellow) 09/16/24 18:32 Urine Appearance Clear (CLEAR) 09/16/24 18:32 Urine pH 5.0 (5-7) 09/16/24 18:32 Ur Specific Excel 1.023 (1.005-1.030) 09/16/24 18:32 Urine Protein Negative (Negative) 09/16/24 18:32 Urine Glucose (UA) Negative (Normal) 09/16/24 18:32 Urine Ketones Trace (Negative) 09/16/24 18:32 Urine Blood Negative (Negative) 09/16/24 18:32 Urine Nitrate Negative (Negative) 09/16/24 18:32 Urine Bilirubin Negative (Negative) 09/16/24 18:32 Urine Urobilinogen 1.0 mg/dL (Negative) 09/16/24 18:32 Ur Leukocyte Esterase Negative (Negative) 09/16/24 18:32 Urine RBC 0-2 /hpf (0-2) 09/16/24 18:32 Urine WBC 0-5 /hpf (0-5) 09/16/24 18:32 Ur Squamous Epith Cells 0-5 /hpf (0-5) 09/16/24 18:32 Amorphous Sediment Not Reportable 09/16/24 18:32 Urine Bacteria None seen /hpf (NONE) 09/16/24 18:32 Hyaline Casts 2.87 /lpf 09/16/24 18:32 Influenza A (PCR) Negative (Negative) 09/16/24 18:16 Influenza Type B (PCR) Negative (Negative) 09/16/24 18:16 RSV (PCR) Negative (Negative) 09/16/24 18:16 SARS-CoV-2 (PCR) Negative (Negative) 09/16/24 18:16 XR interpretation done by ED provider, pending radiology final review (Reviewed by Dr. White at discharge) Discharge Plan Discharge Patient Disposition: Home Clinical Impression: Generalized weakness Condition: Stable Prescriptions: No Action trazodone 150 mg tablet 150 mg PO BEDTIME oxycodone-acetaminophen 5-325 mg tablet 1 tab PO Q8H PRN (Reason: Pain) tramadol 50 mg tablet 50 mg PO DAILY duloxetine 30 mg capsule,delayed release(DR/EC) 30 mg PO DAILY buspirone 15 mg tablet See Rx Instructions .ROUTE .COMPLEX Rx Instructions: Take 1 tablet by mouth in the morning and 1/2 tablet in the evening. (DME) left knee medial cancellation clerk brace See Rx Instructions .Route .MEDSUPPLY Qty: 1 0RF Rx Instructions: As directed (DME) Sole supports See Rx Instructions .Route .MEDSUPPLY Qty: 1 0RF Rx Instructions: As directed finasteride 5 mg tablet 5 mg PO DAILY Qty: 100 3RF (DME) ASO brace See Rx Instructions .Route .MEDSUPPLY Qty: 1 0RF Rx Instructions: As directed by Physical Therapy topiramate [Topamax] 50 mg tablet 50 mg PO BID Qty: 60 0RF amlodipine 10 mg tablet 10 mg PO DAILY Qty: 90 3RF furosemide 40 mg tablet 40 mg PO DAILY Qty: 90 3RF valsartan 160 mg tablet 160 mg PO DAILY Qty: 90 3RF potassium chloride 20 mEq tablet extended release 20 meq PO DAILY Qty: 90 3RF baclofen 20 mg tablet 20 mg PO TID acetaminophen 325 mg Tablet 625 mg PO BID PRN (Reason: Pain) aspirin 81 mg Tablet,Delayed Release (Dr/Ec) 81 mg PO DAILY meloxicam 15 mg Tablet 15 mg PO DAILY ropinirole 3 mg tablet 3 mg PO DAILY Discharge Orders: Discharge ED (Routine); Ordered 09/16/24 Ordered By: Shawn White Referrals: Ranjit Ness MD [Primary Care Provider] - Activity Restrictions/Additional Instructions: Follow-up with your primary care provider next week for recheck. 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 [employer] Related Data Home Medications ?Medication ?Instructions ?Recorded ?Confirmed trazodone 150 mg tablet 150 mg PO BEDTIME 12/28/19 09/01/24 baclofen 20 mg tablet 20 mg PO TID 09/28/21 09/01/24 aspirin 81 mg tablet,delayed 81 mg PO DAILY 03/15/22 09/01/24 release acetaminophen 325 mg tablet 625 mg PO BID PRN Pain 03/19/23 09/01/24 buspirone 15 mg tablet See Rx Instructions .Route .COMPLEX 04/22/23 09/01/24 duloxetine 30 mg capsule,delayed 30 mg PO DAILY 04/22/23 09/01/24 release oxycodone-acetaminophen 5 mg-325 1 tab PO Q8H PRN Pain 11/04/23 09/01/24 mg tablet tramadol 50 mg tablet 50 mg PO DAILY 11/04/23 09/01/24 meloxicam 15 mg tablet 15 mg PO DAILY 08/16/24 09/01/24 ropinirole 3 mg tablet 3 mg PO DAILY 08/16/24 09/01/24 Previous Rx's ?Medication ?Instructions ?Recorded finasteride 5 mg tablet 5 mg PO DAILY #100 tabs 05/02/22 amlodipine 10 mg tablet 10 mg PO DAILY #90 tabs 09/12/22 ASO brace #1 ea 03/21/23 furosemide 40 mg tablet 40 mg PO DAILY #90 tabs 04/29/24 potassium chloride 20 mEq 20 meq PO DAILY #90 tabs 04/29/24 tablet,extended release valsartan 160 mg tablet 160 mg PO DAILY #90 tabs 04/29/24 Sole supports #1 ea 07/21/24 left knee medial cancellation clerk brace #1 ea 07/21/24 topiramate 50 mg tablet (Topamax) 50 mg PO BID #60 tabs 09/01/24 Allergies Allergy/AdvReac Type Severity Reaction Status Date / Time No Known Allergies Allergy Verified 09/01/24 09:45
[2024-09-16 18:31] LABS: Basophils % 0.5 %; Eosinophils # 0.2 10^3/uL (0.0-0.8); Eosinophils % 2.8 %; Hematocrit 38.4 % (37-53); Lymphocytes # 1.4 10^3/uL (0.8-4.8); Lymphocytes % 17.3 %; Mean Corpuscular HGB Conc 33.3 g/dL (30-55); Mean Corpuscular Hemoglobin 30.3 pg (27-33); Mean Corpuscular Volume 90.8 fl (82-101); Mean Platelet Volume 10.6 fL (7.4-10.4); Monocytes # 0.7 10^3/uL (0.2-0.9); Monocytes % 9.1 %; Neutrophils # 5.68 10^3/uL (1.8-7.7); Neutrophils % 69.9 %; Nucleated Red Blood Cells % 0 %; Platelet Count 203 10^3/cmm (157-399); Red Blood Count 4.23 10^6/uL (3.85-5.65); White Blood Count 8.13 10^3/uL (3.29-11.43)
[2024-09-16 18:45] LABS: Bilirubin Urine Negative (Negative); Blood Urine Negative (Negative); Glucose Urine UA Negative (Normal); Ketones Urine Trace (Negative); Leukocyte Esterase Urine Negative (Negative); Nitrate Urine Negative (Negative); Protein Urine Negative (Negative); Specific Gravity, Urine 1.023 (1.005-1.030); Urine Appearance Clear (CLEAR); Urine Color Yellow (Yellow)
[2024-09-16 18:50] LABS: Add Urine Microscopic? YES; Bacteria Urine None Seen /hpf; Hyaline Casts Urine 2.87 /lpf; RBC Urine 0-2 /hpf (0-2); Squamous Epithelial Cell Urine 0-5 /hpf (0-5); WBC Urine 0-5 /hpf (0-5)
[2024-09-16 18:50] LABS: Alanine Aminotransferase 12 U/L (0-41); Albumin Level 3.8 g/dL (3.5-5.2); Alkaline Phosphatase 51 U/L (40-130); Anion Gap 14.5 (5-19); Aspartate Amino Transferase 15 U/L (0-40); Blood Urea Nitrogen 27 mg/dL (8-23); Calcium 8.8 mg/dL (8.5-10.5); Carbon Dioxide 23 mmol/L (22-29); Chloride 108 mmol/L (98-107); Globulin 2.2 g/dL (1.3-4.6); Glomerular Filtration Rate 60.2 mL/min (90-130); Glucose 96 mg/dL (65-115); Osmolality Calculated 299 mOsm/kg (285-295); Potassium 3.5 mmol/L (3.5-5.1); Sodium 142 mmol/L (136-145); Total Bilirubin 0.3 mg/dL (0.15-1.2)
[2024-09-16 19:22] LABS: Influenza A NEGATIVE (Negative); Influenza B NEGATIVE (Negative); Respiratory Syncytial Virus Ce NEGATIVE (Negative); SARS-CoV-2 PCR NEGATIVE (Negative)
[2024-09-16 19:53] VITALS: BP 141/71; PULSE 60; RESP 12; O2SAT 98
[2024-09-16 20:01] LABS: Add Urine Culture? No
[2024-09-16 20:11] LABS: Ammonia 44 umol/L (16-60)
[2024-09-16 21:21] VITALS: BP 133/75; PULSE 66; RESP 16; O2SAT 98
== END 2024-09-16 21:22 | disposition home or self-care (01) ==
PROVIDERS: Family Medicine; Emergency Provider Emergency Medicine; PCP Family Medicine
DX: R53.1 Weakness (principal); Z11.52 Encounter for screening for COVID-19; Z79.82 Long term (current) use of aspirin; I10 Essential (primary) hypertension
CPT/HCPCS: 36415; 71045; 80053; 81001; 82140; 85025; 87637; 93005; 99285

== ENCOUNTER → 2024-10-06 08:58 | Outpatient (BNVA) | payer MEDICARE, SELFPAY | PROVIDERS: PCP Family Medicine; Visit Provider Anesthesiology Pain Medicine | DX: M48.062 Spinal stenosis, lumbar region with neurogenic claudication (principal); M54.2 Cervicalgia; M47.812 Spondylosis without myelopathy or radiculopathy, cervical region | CPT/HCPCS: 99214 ==

== ENCOUNTER 2024-11-09 18:22 | Emergency (ER) | payer MEDICARE, SELFPAY ==
[2024-11-09 18:44] VITALS: BP 153/62; PULSE 77; TEMP 36.7; O2SAT 96; BMI 39.3
--- NOTE | 2024-11-09 18:57 | USR_ITS ---
PROCEDURE INFORMATION: Exam: US Duplex Left Lower Extremity Veins, Limited Exam date and time: 11/09/2024 7:12 PM Age: 69 years old Clinical indication: Edema, localized; Lower extremity, left; Additional info: Redness/pain lower leg TECHNIQUE: Imaging protocol: Real-time duplex ultrasound of the left extremity with 2-D byrne scale, color Doppler flow and spectral waveform analysis including responses to compression and other maneuvers (when performed) with image documentation. Limited exam focused on the left lower extremity veins. COMPARISON: MR knee LT wo con* [id number] 09/24/2018 4:10 PM FINDINGS: Left deep veins: Unremarkable. The common femoral, femoral, proximal profunda femoral, popliteal, posterior tibial and peroneal veins are patent without thrombus. Normal compressibility, augmentation response and Doppler waveforms. Superficial veins: Greater saphenous vein at the saphenofemoral junction is patent without thrombus. Soft tissues: Unremarkable. US/[place] [id number] IMPRESSION: No sonographic evidence of deep vein thrombosis.
--- NOTE | 2024-11-09 18:57 | W.ED.EXTPRO ---
HPI - Extremity Problem General: Chief complaint: Extremity Problem,Nontraumatic Stated complaint: Left Leg Pain Time Seen by Provider: 11/09/24 18:54 Source: patient Mode of arrival: ambulatory Limitations: no limitations History of Present Illness: Patient is a 69-year-old male who presents to ED today for pain to the left anterior lower leg that he has noticed over the past few days. No known injury or trauma. He feels like he has noticed a small amount of redness. Patient states he does have a previous history of a DVT several years ago. He is not on anticoagulation. No recent surgeries. He is not having any chest pain or shortness of breath. No calf pain/swelling. MD Complaint: extremity pain Onset (ago): day(s) Pain Consistency: constant Location: left and lower extremity Quality: aching and constant Radiation: none Relieving factors: nothing Exacerbating factors: nothing Associated symptoms: Reports no associated symptoms; Deny chest pain or fever(s) Context: history of DVT Related Data Home Medications ?Medication ?Instructions ?Recorded ?Confirmed trazodone 150 mg tablet 150 mg PO BEDTIME 12/28/19 10/06/24 baclofen 20 mg tablet 20 mg PO TID 09/28/21 10/06/24 aspirin 81 mg tablet,delayed 81 mg PO DAILY 03/15/22 10/06/24 release acetaminophen 325 mg tablet 625 mg PO BID PRN Pain 03/19/23 10/06/24 buspirone 15 mg tablet See Rx Instructions .Route .COMPLEX 04/22/23 10/06/24 duloxetine 30 mg capsule,delayed 30 mg PO DAILY 04/22/23 10/06/24 release oxycodone-acetaminophen 5 mg-325 1 tab PO Q8H PRN Pain 11/04/23 10/06/24 mg tablet tramadol 50 mg tablet 50 mg PO DAILY 11/04/23 10/06/24 meloxicam 15 mg tablet 15 mg PO DAILY 08/16/24 10/06/24 ropinirole 3 mg tablet 3 mg PO DAILY 08/16/24 10/06/24 Previous Rx's ?Medication ?Instructions ?Recorded finasteride 5 mg tablet 5 mg PO DAILY #100 tabs 05/02/22 amlodipine 10 mg tablet 10 mg PO DAILY #90 tabs 09/12/22 ASO brace #1 ea 03/21/23 furosemide 40 mg tablet 40 mg PO DAILY #90 tabs 04/29/24 potassium chloride 20 mEq 20 meq PO DAILY #90 tabs 04/29/24 tablet,extended release valsartan 160 mg tablet 160 mg PO DAILY #90 tabs 04/29/24 Sole supports #1 ea 07/21/24 left knee medial plastics plater brace #1 ea 07/21/24 cephalexin 500 mg capsule 500 mg PO Q6H 7 days #28 caps 11/09/24 Allergies Allergy/AdvReac Type Severity Reaction Status Date / Time topiramate (From Topamax) Allergy Severe ADR-Drowsy Verified 11/09/24 18:49 Review of Systems Const: Denies: fever(s), chills, body aches, fatigue or malaise Card: Denies: chest pain or palpitations Resp: Denies: dyspnea, pain on inspiration or hemoptysis Musc: Reports: extremity pain; Denies: extremity swelling, joint pain, joint swelling or joint redness Skin/Breast: Reports: erythema Neuro: Denies: headache(s), numbness in extremities, weakness in extremities, sensory changes or difficulty walking PFSH ED PFSH: Medical History Erectile dysfunction BPH loc w urin obs/LUTS Varicose veins of both lower extremities HTN (hypertension) BPH (benign prostatic hyperplasia) Hypercholesteremia Surgical History Hx of hernia repair Hx of appendectomy H/O umbilical hernia repair History of back surgery S/P removal of thyroid nodule Hx of cervical spine surgery Hx of partial thyroidectomy Hx of lumbosacral spine surgery S/P left knee arthroscopy Family History Father , at age 84 Natural Mother , at age 42 Cancer Other CAD (coronary artery disease) Social History Smoking and tobacco/nicotine status: never used tobacco/nicotine Alcohol intake: never Substance/Drug Use: never Marital status: Current occupational status: employed and disabled Physical Exam Const: COMMON NORMALS: no acute distress, average body habitus, patient oriented x3, no limitations, healthy appearing, alert and well nourished Resp: COMMON NORMALS: normal respiratory effort and clear to auscultation bilaterally AUSCULTATION: clear to auscultation bilaterally Cardio: COMMON NORMALS: regular rate and regular rhythm RATE: regular rate RHYTHM: regular rhythm Extremity: COMMON NORMALS: full ROM, capillary refill normal, no joint enlargement, no calf tenderness and no pedal edema GENERAL: Yes normal exam except as noted LEFT LOWER EXTREMITY: Yes lower leg OTHER: mild pain/edema/erythema/warmth anterior left lower leg; distal pulses/cap refill/sensation normal; no calf pain/edema/neg Lucius's; no breaks in skin Neuro: COMMON NORMALS: patient oriented x3, moves all extremities, no focal motor deficits, no sensory deficits noted and gait normal SENSORIUM/ORIENTATION: Yes alert Course Vital Signs: Vital signs: Vital Signs Temperature 98.0 F 11/09/24 18:44 Pulse Rate 77 11/09/24 18:44 Blood Pressure 153/62 11/09/24 18:44 Pulse Oximetry 96 11/09/24 18:44 Oxygen Delivery Me thod Room Air 11/09/24 18:44 MDM - Extremity (Nontraumatic) Medical Decision Making US negative for DVT. Will treat for cellulitis. Recommend follow-up with primary care in later this week. Return to ED precautions discussed. Differential Diagnosis Likely cellulitis, superficial thrombophlebitis and deep vein thrombosis of lower extremity Medical Records I reviewed the patient's medical records. Lab Data Radiology Impressions Venous Duplex 11/09/24 18:57 IMPRESSION: No sonographic evidence of deep vein thrombosis. All radiology interpretation(s) finalized by discharge Discharge Plan Discharge Patient Disposition: Home Clinical Impression: Cellulitis of left leg without foot Condition: Stable Prescriptions: New cephalexin 500 mg capsule 500 mg PO Q6H 7 Days Qty: 28 0RF No Action trazodone 150 mg tablet 150 mg PO BEDTIME oxycodone-acetaminophen 5-325 mg tablet 1 tab PO Q8H PRN (Reason: Pain) tramadol 50 mg tablet 50 mg PO DAILY duloxetine 30 mg capsule,delayed release(DR/EC) 30 mg PO DAILY buspirone 15 mg tablet See Rx Instructions .ROUTE .COMPLEX Rx Instructions: Take 1 tablet by mouth in the morning and 1/2 tablet in the evening. (DME) left knee medial plastics plater brace See Rx Instructions .Route .MEDSUPPLY Qty: 1 0RF Rx Instructions: As directed (DME) Sole supports See Rx Instructions .Route .MEDSUPPLY Qty: 1 0RF Rx Instructions: As directed finasteride 5 mg tablet 5 mg PO DAILY Qty: 100 3RF (DME) ASO brace See Rx Instructions .Route .MEDSUPPLY Qty: 1 0RF Rx Instructions: As directed by Physical Therapy amlodipine 10 mg tablet 10 mg PO DAILY Qty: 90 3RF furosemide 40 mg tablet 40 mg PO DAILY Qty: 90 3RF valsartan 160 mg tablet 160 mg PO DAILY Qty: 90 3RF potassium chloride 20 mEq tablet extended release 20 meq PO DAILY Qty: 90 3RF baclofen 20 mg tablet 20 mg PO TID acetaminophen 325 mg Tablet 625 mg PO BID PRN (Reason: Pain) aspirin 81 mg Tablet,Delayed Release (Dr/Ec) 81 mg PO DAILY meloxicam 15 mg Tablet 15 mg PO DAILY ropinirole 3 mg tablet 3 mg PO DAILY Discharge Orders: Discharge ED (Routine); Ordered 11/09/24 Ordered By: Ness Ascencio Referrals: Ranjit Ness MD [Primary Care Provider, Family Practice] Patient Instructions: Cellulitis (ED) Activity Restrictions/Additional Instructions: As we discussed, please follow-up with primary care later this week for reevaluation. Please fill your antibiotics and start them. You may return to the emergency department for worsening redness, swelling, pain, fevers, or any other concerns you may have. I hope you begin to feel better soon. 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
[2024-11-09] MEDS: cephALEXin 500 mg Capsule PO (20:05)
[2024-11-09 20:12] VITALS: BP 111/75; PULSE 69; RESP 16; O2SAT 95
== END 2024-11-09 20:12 | disposition home or self-care (01) ==
PROVIDERS: Emergency Provider Physician Assistant; PCP Family Medicine
DX: L03.116 Cellulitis of left lower limb (principal); Z79.82 Long term (current) use of aspirin; I10 Essential (primary) hypertension
CPT/HCPCS: 93971; 99284; J9999

== ENCOUNTER → 2025-01-14 06:40 | Outpatient (BNVA) | payer MEDICARE, SELFPAY | PROVIDERS: PCP Family Medicine; Visit Provider Podiatrist Foot & Ankle Surgery | DX: M79.671 Pain in right foot (principal); M21.621 Bunionette of right foot; M72.2 Plantar fascial fibromatosis | CPT/HCPCS: 99213 ==

== ENCOUNTER → 2025-01-18 14:36 | Outpatient (BNVA) | payer MEDICARE, SELFPAY | PROVIDERS: PCP Family Medicine; Visit Provider Anesthesiology Pain Medicine | DX: M48.062 Spinal stenosis, lumbar region with neurogenic claudication (principal); M54.2 Cervicalgia; M47.812 Spondylosis without myelopathy or radiculopathy, cervical region | CPT/HCPCS: 99214 ==

== ENCOUNTER → 2025-01-19 15:19 | Outpatient (BNVA) | payer MEDICARE, SELFPAY | PROVIDERS: PCP Family Medicine; Visit Provider Physician Assistant | DX: M25.569 Pain in unspecified knee (principal); M17.12 Unilateral primary osteoarthritis, left knee | CPT/HCPCS: 20610; 73560; 73565; 99213; J3301; J9999 ==

== ENCOUNTER → 2025-01-27 10:35 | Outpatient (BNVA) | payer MEDICARE, SELFPAY | PROVIDERS: PCP Family Medicine; Visit Provider Anesthesiology Pain Medicine | DX: M47.812 Spondylosis without myelopathy or radiculopathy, cervical region (principal); M54.2 Cervicalgia | CPT/HCPCS: 64490; 64491; 64492; J3490; J9999 ==

== ENCOUNTER → 2025-02-16 07:40 | Outpatient (BNVA) | payer MEDICARE, SELFPAY | PROVIDERS: PCP Family Medicine; Visit Provider Podiatrist Foot & Ankle Surgery | DX: M72.2 Plantar fascial fibromatosis (principal); M21.621 Bunionette of right foot | CPT/HCPCS: 20550; 20600 ==

== ENCOUNTER → 2025-02-22 08:23 | Outpatient (BNVA) | payer MEDICARE, SELFPAY | PROVIDERS: PCP Family Medicine; Visit Provider Anesthesiology Pain Medicine | DX: M54.2 Cervicalgia (principal); M48.062 Spinal stenosis, lumbar region with neurogenic claudication; M47.812 Spondylosis without myelopathy or radiculopathy, cervical region | CPT/HCPCS: 99214 ==

== ENCOUNTER → 2025-03-29 07:41 | Outpatient (BNVA) | payer MEDICARE, SELFPAY | PROVIDERS: PCP Family Medicine; Visit Provider Anesthesiology Pain Medicine | DX: M54.2 Cervicalgia (principal); M48.062 Spinal stenosis, lumbar region with neurogenic claudication; M47.812 Spondylosis without myelopathy or radiculopathy, cervical region | CPT/HCPCS: 99214 ==

== ENCOUNTER → 2025-04-07 08:25 | Outpatient (BNVA) | payer MEDICARE, SELFPAY | PROVIDERS: PCP Family Medicine; Visit Provider Anesthesiology Pain Medicine | DX: M47.812 Spondylosis without myelopathy or radiculopathy, cervical region (principal) | CPT/HCPCS: 64490; 64491; 64492; J3490; J9999 ==

== ENCOUNTER → 2025-04-20 07:49 | Outpatient (BNVA) | payer MEDICARE, SELFPAY | PROVIDERS: PCP Family Medicine; Visit Provider Anesthesiology Pain Medicine | DX: M48.062 Spinal stenosis, lumbar region with neurogenic claudication (principal); M47.812 Spondylosis without myelopathy or radiculopathy, cervical region | CPT/HCPCS: 99214 ==

== ENCOUNTER → 2025-04-27 15:08 | Outpatient (BNVA) | payer MEDICARE, SELFPAY | PROVIDERS: PCP Family Medicine; Visit Provider Student in an Organized Health Care Education/Training Program | DX: M17.12 Unilateral primary osteoarthritis, left knee (principal) | CPT/HCPCS: 99214 ==

== ENCOUNTER 2025-05-06 13:21 | Outpatient (CLI) | payer MEDICARE, SELFPAY ==
--- NOTE | 2025-05-06 13:37 | XRR_ITS ---
PROCEDURE INFORMATION: Exam: XR Lumbosacral Spine Exam date and time: 05/06/2025 1:46 PM Age: 69 years old Clinical indication: Low back pain; Prior surgery; Surgery date: 6+ months; Surgery type: Lumbar fusion; Chronic lower back pain x few years. 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 Views: 6 or more views. Including flexion and extension views. COMPARISON: MR lumbar spine wo con* [id number] 01/07/2023 8:23 AM FINDINGS: Bones/joints: Multilevel posterior fusion hardware at L4-S1. Disc spacer at L5-S1. Mild degenerative endplate changes. Osseous demineralization. No spondylolisthesis. No acute compression fracture. Soft tissues: Unremarkable. XR/XR lumbar spine 6V w f/e [id number] IMPRESSION: 1. Multilevel posterior fusion hardware at L4-S1. Disc spacer at L5-S1. . 2. No spondylolisthesis. No acute compression fracture. .
--- NOTE | 2025-05-06 14:00 | CT_ITS ---
WS: [id number] CT LEFT KNEE, NONCONTRAST MEENAKSHI TECHNIQUE: Noncontrast CT of the LEFT knee to include the LEFT hip and ankle. CLINICAL INFORMATION: M17.12 - Unilateral primary osteoarthritis, left knee COMPARISON: None. DLP: 1047.[address] scans at [facility] use at least one of these dose optimization techniques: automated exposure control; mA and/or kV adjustment per patient size (includes targeted exams where dose is matched to clinical indication); or iterative reconstruction. FINDINGS: Advanced degenerative arthritis LEFT knee worse in the medial joint compartment. Hypertrophic patella. Degenerative arthritis sacroiliac joints. Vascular calcification. Moderate suprapatellar effusion. CT/CT knee LT MEENAKSHI [id number] IMPRESSION: Images obtained for preoperative purposes.
== END 2025-05-06 13:22 | disposition home or self-care (01) ==
LOC: RAD 13:30
PROVIDERS: PCP Family Medicine; Visit Provider Student in an Organized Health Care Education/Training Program
DX: M47.817 Spondylosis without myelopathy or radiculopathy, lumbosacral region (principal); M17.12 Unilateral primary osteoarthritis, left knee; M89.38 Hypertrophy of bone, other site; M46.1 Sacroiliitis, not elsewhere classified; I25.84 Coronary atherosclerosis due to calcified coronary lesion; M25.461 Effusion, right knee
CPT/HCPCS: 72114; 73700

== ENCOUNTER → 2025-05-12 07:52 | Outpatient (BNVA) | payer MEDICARE, SELFPAY | PROVIDERS: PCP Family Medicine; Visit Provider Anesthesiology Pain Medicine | DX: M47.812 Spondylosis without myelopathy or radiculopathy, cervical region (principal) | CPT/HCPCS: 64633; 64634; J1100; J9999 ==

== ENCOUNTER → 2025-05-26 10:09 | Outpatient (BNVA) | payer MEDICARE, SELFPAY | PROVIDERS: PCP Family Medicine; Visit Provider Physician Assistant | DX: Z01.818 Encounter for other preprocedural examination (principal); M17.12 Unilateral primary osteoarthritis, left knee | CPT/HCPCS: 36415; 80053; 81001; 85025; 99213 ==

== ENCOUNTER → 2025-06-02 08:57 | Outpatient (BNVA) | payer MEDICARE, SELFPAY | PROVIDERS: PCP Family Medicine; Visit Provider Anesthesiology Pain Medicine | DX: M47.812 Spondylosis without myelopathy or radiculopathy, cervical region (principal) | CPT/HCPCS: 64633; 64634; J1100; J9999 ==

== ENCOUNTER 2025-06-10 09:13 | Observation (INO) | payer MEDICARE, SELFPAY ==
[2025-06-10] VITALS (19 sets, daily range): BP systolic 99–154; BP diastolic 52–83; PULSE 69–85; RESP 11–20; TEMP 36.7–37.3; O2SAT 91–99; BMI 38.4
--- NOTE | 2025-06-10 06:16 | ANES.PREANE2 ---
Pre-Anesthetic Assessment Height/Weight: Height 5 ft 10 in Weight 268 lb Temp Pulse Resp BP Pulse Ox O2 Del Method 98.4 F 81 18 112/63 96 Room Air 06/10/25 06:08 06/10/25 06:08 06/10/25 06:08 06/10/25 06:08 06/10/25 06:08 06/10/25 06:08 Preop Diagnosis: Knee arthritis Operation Date: 06/10/25 07:00 Proposed Procedures p Arsen Robot Total Knee Arthroplasty(Left) - Sheldon Caldera, DO Was Beta Esme taken within 24 hours: N/A Was Clonidine taken within 24 hours: N/A Social No alcohol and No tobacco Exam alert, oriented x 3, clear to auscultation bilaterally and regular rate & rhythm Airway Submandibular: within normal limits Cervical ROM: within normal limits Mallampati: Class III Dentition: full Anesthetic Plan ASA status: 3 Anesthesia: General Other: No prior issues with anesthesia NPO since yesterday evening History of hypertension on amlodipine, valsartan and hydrochlorothiazide S/p partial thyroidectomy. No meds for this EKG sinus rhythm with first-degree AV block Labs reviewed 05/26/2025 and acceptable for procedure today, CR 1.3 which appears to be about baseline States METs greater than 4 just limited due to knee pain and back pain Plan for general anesthesia with peripheral nerve block Medications/Allergies Home Medications ?Medication ?Instructions ?Recorded ?Confirmed ?Last Taken ?Type trazodone 150 mg tablet 150 mg PO BEDTIME 12/28/19 06/09/25 06/09/25 History baclofen 20 mg tablet 20 mg PO TID 09/28/21 06/09/25 06/09/25 History aspirin 81 mg tablet,delayed 81 mg PO DAILY 03/15/22 06/09/25 05/26/25 History release finasteride 5 mg tablet 5 mg PO DAILY #100 tabs 05/02/22 06/09/25 06/08/25 Rx amlodipine 10 mg tablet 10 mg PO DAILY #90 tabs 09/12/22 06/09/25 06/09/25 Rx ASO brace #1 ea 03/21/23 06/02/25 Unknown Rx buspirone 15 mg tablet See Rx Instructions .Route .COMPLEX 04/22/23 06/09/25 06/09/25 History duloxetine 30 mg capsule,delayed 30 mg PO DAILY 04/22/23 06/09/25 06/09/25 History release furosemide 40 mg tablet 40 mg PO DAILY #90 tabs 04/29/24 06/09/25 06/09/25 Rx potassium chloride 20 mEq 20 meq PO DAILY #90 tabs 04/29/24 06/09/25 06/09/25 Rx tablet,extended release valsartan 160 mg tablet 160 mg PO DAILY #90 tabs 04/29/24 06/09/25 06/09/25 Rx Sole supports #1 ea 07/21/24 06/02/25 Unknown Rx left knee medial support services coordinator brace #1 ea 07/21/24 06/02/25 Unknown Rx ropinirole 3 mg tablet 3 mg PO DAILY 08/16/24 06/09/25 06/08/25 History hydrochlorothiazide 25 mg tablet 25 mg PO DAILY 04/20/25 06/09/25 06/09/25 History tamsulosin 0.4 mg capsule 0.4 mg PO DAILY 04/20/25 06/09/25 06/09/25 History oxycodone 5 mg capsule 5 mg PO BID PRN Pain, Mild 05/26/25 06/09/25 06/08/25 History tramadol 50 mg tablet 50 mg PO PRN pain 06/09/25 06/09/25 06/09/25 History Allergies Allergy/AdvReac Type Severity Reaction Status Date / Time topiramate (From Topamax) Allergy Severe ADR-Drowsy Verified 06/09/25 12:06 [facility] Anesthesia Medical History Erectile dysfunction BPH loc w urin obs/LUTS Varicose veins of both lower extremities HTN (hypertension) BPH (benign prostatic hyperplasia) Hypercholesteremia Surgical History Hx of hernia repair Hx of appendectomy H/O umbilical hernia repair History of back surgery S/P removal of thyroid nodule Hx of cervical spine surgery Hx of partial thyroidectomy Hx of lumbosacral spine surgery S/P left knee arthroscopy Family History Father , at age 84 Natural Mother , at age 42 Cancer Other CAD (coronary artery disease) Social History Smoking and tobacco/nicotine status: never used tobacco/nicotine Alcohol intake: never Substance/Drug Use: never Marital status: Current occupational status: employed and disabled Data Anesthesia Cardiac Studies: Echocardiogram 01/26/22
[2025-06-10 06:57] LABS: Hematocrit 37.7 % (37-53); Hemoglobin 12.60 g/dL (11.27-16.99); Mean Corpuscular HGB Conc 33.4 g/dL (30-55); Mean Corpuscular Hemoglobin 30.2 pg (27-33); Mean Corpuscular Volume 90.4 fl (82-101); Nucleated Red Blood Cells % 0 %; Platelet Count 185 10^3/cmm (157-399); Red Blood Count 4.17 10^6/uL (3.85-5.65); White Blood Count 7.22 10^3/uL (3.29-11.43)
--- NOTE | 2025-06-10 07:02 | P.HPUD_ITS ---
Surgery/Procedure H&P Update DATE OF PROCEDURE: June 10, 2025 DATE H&P PERFORMED: 05/26/25 H&P UPDATE INFORMATION: I have reviewed H&P completed within last 30 days, I have examined patient prior to procedure, No changes to prior documentation and Risks and benefits of the procedure reviewed CHANGES TO PREVIOUS DOCUMENTATION: Patient at this point in time has cleared the preoperative clearance process. Patient been seen by the preoperative clearance cleared to proceed with surgical intervention. He understands ins and outs of the procedure the risk benefits complication alternative surgical nonsurgical treatment options. Understanding risk of surgery elects proceed with surgical invention. He denies any intra- articular knee injections in the past 90 days. He is ready to proceed with surgical intervention. No change in his health since his last office visit all questions answered at this time. Will proceed to the OR today for left total knee arthroplasty. Please refer to preoperative anesthesia evaluation for heart and lung findings. PREOP DIAGNOSIS: Left knee DJD PRIMARY INDICATION FOR PROCEDURE: Left knee DJD PLANNED PROCEDURE: Operation Date: 06/10/25 07:00 Proposed Procedures p Arsen Robot Total Knee Arthroplasty(Left) - Sheldon Caldera DO
[2025-06-10 07:21] LABS: Anion Gap 12.5 (5-19); Blood Urea Nitrogen 27 mg/dL (8-23); Calcium 8.7 mg/dL (8.5-10.5); Carbon Dioxide 28 mmol/L (22-29); Chloride 103 mmol/L (98-107); Glucose 119 mg/dL (65-115); Osmolality Calculated 296 mOsm/kg (285-295); Potassium 3.5 mmol/L (3.5-5.1); Sodium 140 mmol/L (136-145)
[2025-06-10] MEDS: ceFAZolin 3,000 MG in sodium chloride 0.9% (plus) 100 ML 200 MG IV ×3 (07:33→22:45)
[2025-06-10] MEDS: tranexamic acid 1,000 mg/10mL SDV 1000 MG IV (07:40)
[2025-06-10] MEDS: ROPivacaine 0.2% Premix 100 mL 200 MG XX (08:10)
[2025-06-10] MEDS: tranexamic acid 1,000 mg/10mL SDV 1000 MG XX (08:10)
--- NOTE | 2025-06-10 09:00 | P.BOP_ITS ---
Date of Procedure: 06/10/25 Surgeon: Sheldon Caldera DO Assistant Financial Accountant(s): Pro Caldera PA-C Procedure(s) performed: Left total knee arthroplasty?Arsen robotic assisted Findings of the procedure(s): Patient underwent procedure as planned without issues or complications taken recovery stable condition Estimated blood loss: 25mL Specimen(s) removed: Tibia femur patellar bone cuts removed Post-operative diagnosis: Left knee DJD
--- NOTE | 2025-06-10 09:01 | P.OP_ITS ---
Operative Report Date of procedure: June 10, 2025 Surgeon: Sheldon Caldera DO Nuclear Physicist: Pro Caldera PA-C: PA was necessary for assistance in this case with leg positioning retraction and protection of neurovascular structures as well as assistance in implantation wound closure and dressing application. Procedure: Preoperative diagnosis: Left knee degenerative joint disease Post-op diagnosis: Same Procedure done: Left total knee arthroplasty, cemented?robotic assisted Arsen Implants: Immaculata triathlon size 5 femur CR cemented?left Immaculata triathlon size? 5 tibia universal baseplate cemented Immaculata triathlon symmetric patella size 33 mm Donny triathlon polyethylene 10mm Surgeon: Sheldon Caldera DO Estimated blood?loss: 25 mL Tourniquet 57 minutes IV fluids: 1200 mL Urine output: 100 mL Complications: None Condition: stable Disposition: floor Brief History: Patient is a 69?year-old male with with chronic?left knee degenerative joint disease.? Patient has been worked up in the outpatient setting in the orthopedic office at this point time through shared decision making given? [id number] arthritis as well as failed conservative treatment, and pt would?like to proceed with a?left total knee arthroplasty.? Through shared decision making elected to proceed with surgical intervention for?left total knee arthroplasty?Arsen robotic assisted.? We talked about continued conservative treatment and surgical intervention as far as the risk benefits complications alternatives surgical and nonsurgical treatment options.? At this point time understanding patient risks with surgery he agrees to proceed with surgical intervention.? Once again? risk with surgery include but are not?limited to make it better make it worse blood clot, heart attack, stroke, on the table, infection, injury to nerves or vessels, persistent pain, arthrofibrosis, implant failure.? Understanding these risks patient agrees to proceed with surgical intervention consent was obtained in the preoperative holding area.? All questions answered. Procedure: Patient was seen and evaluated in the preoperative holding area.? Consent was reviewed and signed with patient with plan for?left total knee arthroplasty.? All questions answered.? Correct extremity marked.? Patient seen and evaluated by the anesthesia department and once cleared for surgery was taken back to the operative suite.? Patient was placed into a supine position on the OR table.? All bony prominences were well-padded.? Patient was appropriately secured to the bed.? Patient underwent anesthesia per the anesthesia department.? Patient received anesthesia and? Rose catheter was placed.? A nonsterile tourniquet was applied to the?left thigh.? At this point in time a final timeout performed.? Patient received appropriate preoperative antibiotics and TXA. Next the?left?lower extremity was then prepped and draped in standard orthopedic fashion. Esmarch tourniquet was used exsanguinate the?left?lower extremity.? Tourniquet was insufflated to 250 mmHg. A standard anterior incision was made over midline of the knee.? Sharp scalpel excision through skin and subcutaneous tissue full-thickness skin flaps were made.? Fascia was elevated off of the extensor retinaculum was stable with medial parapatellar arthrotomy was then made.? The performed standard sequential releases..? Immediately on entry into the joint patient was found to have severe eburnated bone and tricompartmental arthritic changes noted.? With significant osteophyte formation.? Next the the patella was then stuffed and the knee was then flexed.?? Lucius was placed superiorly around the anterior aspect of the femur this was freed of synovium and I subsequently then placed by 2 femur pins to establish my femur arrays for the Arsen robot.? These were then placed bicortically and? femur array was then appropriately secured with appropriate visualization.? Next attention was turned towards the tibial rays.? These were then drilled sequentially bicortically in parallel fashion and intraincisional.? I then placed my guide as well as my tibial array on in place.? This was appropriately secured and had excellent visualization with the Arsen robot.? Next the tibial checkpoint as well as femur checkpoint were then placed.? At this point time I then subsequently established my head center as well as my medial?lateral malleoli as well as my checkpoints.? Next utilizing standard Arsen technology I then mapped out the appropriate points and confirmation points around the femur as well as the tibia in standard fashion.? Once this was then done I then removed all osteophytes in preparation for dynamic testing.? All osteophytes were removed as well as I removed the ACL and the PCL was excised due to its significant tearing and degeneration noted.? At this point time the knee was brought into full extension and we performed our standard evaluation of our gap balancing stressing his?ligaments and extension as well as flexion appropriate adjustments were made to have appropriate gap balancing in both flexion and extension.? This plan for final cuts were made and implants were positioned to correct patient's deformity up to patient's ligamentous tolerances..? We get a preoperative plan evaluating our implants which was a size 5 femur and a size 5 tibia.? Next we brought in the Arsen robot and sequentially made our femur cuts.? All excess bony cuts were then removed.? Finally we made our tibial cut.? Once this was done a standard PCL retractor was then placed into this position I excised the medial and?lateral meniscus.? The tibial cut was then subsequently removed all excess bony debris was removed.? I then utilized a?lamina document processor and remove the posterior osteophytes.? At this point time sized the tibia and confirmed this was a size 5.? I utilized our blunt probe to establish rotation of tibial implant.? Once this was done I then placed my tibia size 5 trial in appropriate position and then subsequently placed tibial pins to hold this into place, and trialed up to a size 10 mm poly as well as a size 5 femur which was appropriately impacted in place knee was then subsequently brought into ext ension. Trials were then assessed,? this was stable with varus valgus stress in extension as well as had symmetrical translation when brought into flexion demonstrating symmetrical gaps. I had excellent balance gaps in flexion and extension with varus and valgus stresses.? At this point I was satisfied with these implants these were then verified and opened on the back table size5 tibia, size5 femur,? size 10 mm polythickness.? We did confirm appropriate gap balancing and stresses as well as alignment utilizing? Arsen and were satisfied with this plan.? ?At this point time with my trials in place I then towel clip the patella everted this made appropriate measurements subsequently utilizing freehand technique performed by patellar resurfacing this was confirmed to be appropriate resection and subsequently sized to be a 33 mm symmetric.? My drill peg guides were then clamped and appropriate position and appropriate position in the patella for appropriate tracking and parallel with the joint.? Pegs were drilled trial implant was placed and the knee was then subsequently ranged and found to have excellent patellar tracking.? Femur pegs were then drilled.?? At this point time all of our trial implants were removed.? All checkpoints as well as guidepins and arrays were removed and appropriate counts made. Satisfied with our tibial placement rotation I then utilized the keel punch and prepped the tibia.? The wound bed? was thoroughly irrigated and dried and prepped for cementation.? Cement was mixed on the back table.? Once cement was ready this was then covered onto the tibia and the tibial baseplate was then impacted and all excess cement was removed.? Next the polyethylene was then impacted into place on the tibial baseplate.? Next cement was placed onto the femur as well as under the femur implants and impacted in to place and all excess cement was extruded and removed.? Knee was taken into full extension? to clear all excess cement was removed.? Warm saline was placed over the joint.? I then towel clip patella and dried for cementation. cemented the patella into place.? This was all clamped and the cement was allowed to cure.? Thorough irrigation performed with pulse?lavage.? I then placed my periarticular injection while the cement was curing.? Once cured the knee was taken through range of motion and had excellent stability and gaps were balanced in flexion and extension.? Tourniquet was then deflated. hemostasis satisfactory with electrocautery.? Next I then subsequently closed the capsule with Ethibond suture as well as a running strata fix suture.? Knee was then taken through range of motion 30 times.? Next the skin was then closed in?layered fashion of running stratifix sutures of deep and subcutenous tissue and skin.? ?closed in flexion and Prineo glue was then placed over the incision this allowed to cure.? Incision was covered with Silverlon, with ABDs soft roll and Glenn wrap.? Patient was then awakened from anesthesia and taken to PACU in stable condition. Disposition: Patient taken to PACU in stable condition will be admitted to the floor for pain control PT/OT weight-bear as tolerated?left?lower extremity dressing changes as needed, DVT prophylaxis. Pain control. Patient will receive appropriate postoperative antibiotics. patient will be seen today by the internal medicine team for medical management.? Patient will follow up with the office in 2 weeks.? Patient understands agrees with current plan.? All questions answered.
--- NOTE | 2025-06-10 09:08 | XR_ITS ---
WS: [id number] XR knee LT 3V* [id number] REASON FOR EXAM: post L TKA FINDINGS: Total left knee arthroplasty. Components of the arthroplasty are intact and in proper position and alignment. No focal bone abnormality. Postsurgical soft tissue changes. XR/XR knee LT 3V* [id number] IMPRESSION: Recent total left knee arthroplasty without abnormality.
--- NOTE | 2025-06-10 09:17 | ANES.PROC ---
Anesthesia Procedures Procedure/Date: 06/10/25 Left adductor canal block for postoperative pain control Nerve Block ^: Nerve Block 1: Main Anesthesia: general anesthesia Time Out Performed: Yes Consent: requested by attending/covering physician and from patient Laterality: Left Nerve block location: adductor canal Anesthesia monitors applied: pulse oximetry, EKG, BP cuff and oxygen Nerve block position: supine Anesthetic Used: ropivicaine 0.5% Amount of anesthesia used (mL): 15 Ultrasound used to: recognize landmarks Nerve Stimulator Used?: Yes Interscalene/Femoral BLK: other needle (pjunk 4inch) Injection: neg aspiration of heme Patient Tolerated Procedure: well Complications: none
--- NOTE | 2025-06-10 09:26 | PM.PACU ---
PACU note Narrative: Patient is a 69-year-old male that just underwent a left total knee arthroplasty. Pt transferred to PACU in stable condition. Dressing is dry. pt is awake and alert. pt can wiggle toes and plantarflex and dorsiflex foot. pt able to perform straight leg raise, Femoral nerve intact. Distal pulses are palpable toes are warm and well-perfused. Cap refill is normal and under 2 seconds. Sensation to foot is intact. Pain is controlled. Exam: awake Disposition: admitted
--- NOTE | 2025-06-10 09:45 | ANE.PACU2 ---
Inpatient post-anesthesia follow up: Airway intact: Yes Vital signs: Temperature 98.4 F Pulse Rate 77 Respiratory Rate 16 Blood Pressure 129/66 Pulse Oximetry 95 Oxygen Delivery Me thod Nasal Cannula Oxygen Flow Rate 2 Fraction of Inspir ed Oxygen Hydration adequate: Yes Nausea and vomiting: No Pain level: 1 Mental status: Baseline
--- NOTE | 2025-06-10 09:58 | PM.CONSULT ---
Providers/Reason For Consult Consulting Physician/Specialty*: Sheldon Caldera DO Reason for Consult*: Medical Management Attending Physician: Sheldon Caldera DO Primary Care Provider: Ranjit Ness MD History of Present Illness History of Present Illness Christian Colin is a 69 year old male w/ phmx HTN, BPH, HLD, and lumbar stenosis presents today S/P scheduled left total knee arthroplasty with Dr. Caldera. Patient consulted to hospitalist services for continued medical management of comorbidities. Patient resting in bed post op left total knee arthroplasty this morning, on 2L NC. Family noted to be at bedside during my evaluation. Patient denies significant pain at this time, reports 3/10 on pain scale. Dressing to left knee noted to be C/D/I with ice pack in place. Distal pulses palpable, toes are warm, cap refill under 3 seconds. Sensation to foot is intact. Denies chest pain shortness of breath, nausea, vomiting, diarrhea, abdominal pain, dark or tarry stools, fever, chills, recent illness, or syncope. Review of Systems General: Reports: 10 or more systems reviewed and unremarkable except in HPI and below Medications/Allergies Home Medications ?Medication ?Instructions ?Recorded ?Confirmed ?Last Taken ?Type trazodone 150 mg tablet 150 mg PO BEDTIME 12/28/19 06/09/25 06/09/25 History baclofen 20 mg tablet 20 mg PO TID 09/28/21 06/09/25 06/09/25 History aspirin 81 mg tablet,delayed 81 mg PO DAILY 03/15/22 06/09/25 05/26/25 History release finasteride 5 mg tablet 5 mg PO DAILY #100 tabs 05/02/22 06/09/25 06/08/25 Rx amlodipine 10 mg tablet 10 mg PO DAILY #90 tabs 09/12/22 06/09/25 06/09/25 Rx ASO brace #1 ea 03/21/23 06/02/25 Unknown Rx buspirone 15 mg tablet See Rx Instructions .Route .COMPLEX 04/22/23 06/09/25 06/09/25 History duloxetine 30 mg capsule,delayed 30 mg PO DAILY 04/22/23 06/09/25 06/09/25 History release furosemide 40 mg tablet 40 mg PO DAILY #90 tabs 04/29/24 06/09/25 06/09/25 Rx potassium chloride 20 mEq 20 meq PO DAILY #90 tabs 04/29/24 06/09/25 06/09/25 Rx tablet,extended release valsartan 160 mg tablet 160 mg PO DAILY #90 tabs 04/29/24 06/09/25 06/09/25 Rx Sole supports #1 ea 07/21/24 06/02/25 Unknown Rx left knee medial bank reconciliator brace #1 ea 07/21/24 06/02/25 Unknown Rx ropinirole 3 mg tablet 3 mg PO DAILY 08/16/24 06/09/25 06/08/25 History hydrochlorothiazide 25 mg tablet 25 mg PO DAILY 04/20/25 06/09/25 06/09/25 History tamsulosin 0.4 mg capsule 0.4 mg PO DAILY 04/20/25 06/09/25 06/09/25 History oxycodone 5 mg capsule 5 mg PO BID PRN Pain, Mild 05/26/25 06/09/25 06/08/25 History tramadol 50 mg tablet 50 mg PO PRN pain 06/09/25 06/09/25 06/09/25 History Allergies Allergy/AdvReac Type Severity Reaction Status Date / Time topiramate (From Topamax) Allergy Severe ADR-Drowsy Verified 06/09/25 12:06 PFSH Acute PFSH: Medical History (Updated 06/10/25 @ 10:29 by Katharine Valdez NP) Erectile dysfunction BPH loc w urin obs/LUTS Varicose veins of both lower extremities HTN (hypertension) BPH (benign prostatic hyperplasia) Hypercholesteremia Surgical History (Updated 06/10/25 @ 10:28 by Katharine Valdez NP) Hx of hernia repair Hx of appendectomy H/O umbilical hernia repair History of back surgery S/P removal of thyroid nodule Hx of cervical spine surgery Hx of partial thyroidectomy Hx of lumbosacral spine surgery S/P left knee arthroscopy Family History Father , at age 84 Natural Mother , at age 42 Cancer Other CAD (coronary artery disease) Social History Smoking and tobacco/nicotine status: never used tobacco/nicotine Alcohol intake: never Substance/Drug Use: never Marital status: Current occupational status: employed and disabled Vitals/I&O/Wt Last Vital Signs Temp 99.1 F 06/10/25 09:45 Pulse 75 06/10/25 09:45 Resp 12 06/10/25 09:45 BP 128/52 06/10/25 09:45 Pulse Ox 98 06/10/25 09:45 O2 Del Method Nasal Cannula 06/10/25 09:45 O2 Flow Rate 2 06/10/25 09:45 06/09/25 06/10/25 06/10/25 22:59 06:59 14:59 Intake Total 300 / 300 Output Total 125 / 125 Balance 175 / 175 Weight last 48 hrs Weight 121.563 kg Physical Exam Narrative: General: A&Ox4 , resting in bed on 2L NC HEENT: Normo-cephalic, atraumatic, grossly unremarkable exam Cardio: NSR, normal S1-S2 w/o any murmurs, rubs, or gallops and JVD normal Respiratory: Clear bilaterally throughout on auscultation w/o any wheezes, rhonchi GI: Abd soft, non-tender, non-distended, normo-active bowel sounds present Neuro: Moves all extremities, no sensory deficits, Normal speech Behavior: Appropriate and cooperative Extremities: Adequate palpable pulses. Dressing to left knee in place noted to be C/D/I w/ ice pack in place. Urinary Catheter Management: Rose Latex: Cath Placed During This Visit: yes Urinary Catheter Date of Insertion: 06/10/25 Urinary Catheter Time of Insertion: 07:33 Data 06/10/25 06:45 06/10/25 06:45 A&P Assessment and plan 1. Status post total left knee replacement: 2. Benign prostatic hyperplasia, unspecified whether lower urinary tract symptoms present: 3. Primary hypertension: 4. Hypercholesteremia: Plan: S/P Left Total Knee Arthroplasty. Patient s/p left total knee arthroplasty- 06/10 Post- op v/s protocol, monitor IS q1hr PT, OT ordered. WBAT IVF of LR at 100ml/hr IV abx of Cefrazolin q8hr x3 Ice pack as needed for pain Pain analgesics ordered, PRN CBC, CMP, Mag ordered, dly. HTN Continue home medications amlodipine 10 mg PO dly Continue home medication valsartan 160 mg PO dly HLD Lipid panel ordered for am, pending. Not on statin currently. BPH Continue home medication tamsulosin 0.4mg PO dly Continue home medication f he is inasteride 5mg PO dly RLS Insomnia Continue home medication ropinirole 3mg PO dly Continue home medication trazodone 150 mg PO dly Depression Anxiety Continue home medication buspirone 15 mg PO dly Continue home medication duloxetine 30mg PO dly Lumbar stenosis with neurogenic claudication Facet arthritis of cervical region Patient follows up w/ outpt pain management. Continue home medication baclofen 15mg PO CODE STATUS: Full Code VTE prophylaxis: SCDs, home medication Eliquis 2.5 mg PO BID PDMP PDMP Reviewed: Not Reviewed Consult Attestations Medical Necessity Statement: Patient will require less than 2 midnight stay for continued management of status post left total knee arthroplasty for PT/OT and medical management of comorbidities Coding Level of Care Code 01326 Diagnoses Status post total left knee replacement Z96.652 Laterality: left Benign prostatic hyperplasia, unspecified whether lower urinary tract symptoms present N40.0 Lower urinary tract symptom presence: unspecified whether lower urinary tract symptoms present Primary hypertension I10 Hypertension type: primary hypertension Hypercholesteremia E78.00
[2025-06-10] MEDS: oxyCODONE 5 mg IR Tab/Cap PO ×2 (10:39→14:48)
[2025-06-10 11:12] LABS: Magnesium 2.3 mg/dL (1.7-2.3)
[2025-06-10] MEDS: chlorhexidine gluconate 0.12% Btl 473 mL 30 ML MUCOUS MEM ×3 (12:10→22:11)
[2025-06-10] MEDS: acetaminophen 1,000 MG/100 ML PIGGYBACK 400 MG IV ×2 (12:11→21:28)
[2025-06-10] MEDS: sennosides-docusate Tablet 2 TAB PO (17:05)
[2025-06-10] MEDS: mupirocin oint 22 gm 1 APPLIC NASAL (17:05)
[2025-06-10] MEDS: tranexamic acid 1,000 MG/100 ML PREMIX 600 MG IV (17:06)
[2025-06-10] MEDS: calcium carb-vit d 600mg/400unit 1 Tablet 1 EACH PO (17:07)
[2025-06-11] VITALS (8 sets, daily range): BP systolic 99–159; BP diastolic 59–74; PULSE 59–69; RESP 16–18; TEMP 36.7–36.9; O2SAT 95–99
[2025-06-11] MEDS: acetaminophen 1,000 MG/100 ML PIGGYBACK 400 MG IV (04:42)
[2025-06-11 04:43] LABS: Hematocrit 40.8 % (37-53); Hemoglobin 12.90 g/dL (11.27-16.99); Mean Corpuscular HGB Conc 31.6 g/dL (30-55); Mean Corpuscular Hemoglobin 30.6 pg (27-33); Mean Corpuscular Volume 96.7 fl (82-101); Nucleated Red Blood Cells % 0 %; Platelet Count 189 10^3/cmm (157-399); Red Blood Count 4.22 10^6/uL (3.85-5.65); White Blood Count 14.93 10^3/uL (3.29-11.43)
[2025-06-11] MEDS: sennosides-docusate Tablet 2 TAB PO (04:48)
[2025-06-11] MEDS: calcium carb-vit d 600mg/400unit 1 Tablet 1 EACH PO (04:48)
[2025-06-11] MEDS: chlorhexidine gluconate 0.12% Btl 473 mL 30 ML MUCOUS MEM ×2 (04:53→12:08)
[2025-06-11 05:11] LABS: Anion Gap 13.0 (5-19); Blood Urea Nitrogen 25 mg/dL (8-23); Calcium 8.6 mg/dL (8.5-10.5); Carbon Dioxide 26 mmol/L (22-29); Chloride 106 mmol/L (98-107); Cholesterol 130 mg/dL (0-200); Glucose 123 mg/dL (65-115); HDL Cholesterol 44 mg/dL (60-100); Osmolality Calculated 298 mOsm/kg (285-295); Potassium 4.0 mmol/L (3.5-5.1); Sodium 141 mmol/L (136-145); Triglycerides 69 mg/dL (0-150)
--- NOTE | 2025-06-11 07:55 | PC.PHAR ---
Pts medications were verified on the floor. Spot check shows changed to newer CII pain medication. Added last fill dates and day supply after speaking with pt.
[2025-06-11] MEDS: oxyCODONE 5 mg IR Tab/Cap PO ×2 (07:56→12:08)
[2025-06-11] MEDS: APIXABAN 2.5 MG TABLET PO (08:34)
[2025-06-11] MEDS: ceFAZolin 3,000 MG in sodium chloride 0.9% (plus) 100 ML 200 MG IV (08:35)
--- NOTE | 2025-06-11 08:52 | P.PN_ITS ---
Subjective 2 Subjective: Patient sitting up in chair eating breakfast this morning, noted to be at bedside during my evaluation. Patient denies pain at this time. Plan of care discussion regarding discharge today with home health. Rose catheter removed this morning, patient reports urination and bowel movement this morning. Vital signs and labs reviewed this a.m.. All questions and concerns answered regarding the plan of care adressed at bedside. Medications: Reviewed: Yes Vitals/I&O/Wt Last Vital Signs Temp 98.2 F 06/11/25 07:15 Pulse 65 06/11/25 07:15 Resp 17 06/11/25 07:56 BP 139/71 06/11/25 07:15 Pulse Ox 96 06/11/25 07:15 O2 Del Method Room Air 06/11/25 07:15 O2 Flow Rate 2 06/10/25 11:25 06/10/25 06/11/25 06/11/25 22:59 06:59 14:59 Intake Total 1920 / 2320 580 / 2900 240 / 240 Output Total 425 / 550 1400 / 1950 Balance 1495 / 1770 -820 / 950 240 / 240 Weight last 48 hrs Weight 121.563 kg Weight 121.563 kg Weight 121.563 kg Physical Exam 2 Narrative: General: A&Ox4 , sitting up in chair on RA, noted to be at bedside. HEENT: Normo-cephalic, atraumatic, grossly unremarkable exam Cardio: NSR, normal S1-S2 w/o any murmurs, rubs, or gallops and JVD normal Respiratory: Clear bilaterally throughout on auscultation w/o any wheezes, rhonchi GI: Abd soft, non-tender, non-distended, normo-active bowel sounds present Neuro: Moves all extremities, no sensory deficits, Normal speech Behavior: Appropriate and cooperative Extremities: Adequate palpable pulses. Dressing to left knee in place noted to be C/D/I w/ ice pack in place. Urinary Catheter Management: Rose Latex: Cath Placed During This Visit: yes, but has since been removed by the nurse Reason for Continuing Indwelling Catheter: Decision to DC Catheter Urinary Catheter Date of Insertion: 06/10/25 Urinary Catheter Time of Insertion: 07:33 Date Urinary Catheter Removed: 06/11/25 Time Urinary Catheter Discontinued: 05:01 Data 06/11/25 04:20 06/11/25 04:20 A&P Assessment and plan 1. Status post total left knee replacement: 2. Benign prostatic hyperplasia, unspecified whether lower urinary tract symptoms present: 3. Primary hypertension: 4. Hypercholesteremia: Plan: S/P Left Total Knee Arthroplasty. Patient s/p day 1 left total knee arthroplasty V/S q4hr IS q1hr PT, OT ordered. WBAT Discontinue IVF IV abx of Cefrazolin q8hr x3- completed 06/10 Ice pack as needed for pain Pain analgesics ordered, PRN CBC, CMP, Mag ordered, dly. HTN Continue home medications amlodipine 10 mg PO dly Continue home medication valsartan 160 mg PO dly HLD 06/11: Lipid panel WNLs BPH Continue home medication tamsulosin 0.4mg PO dly Continue home medication finasteride 5mg PO dly RLS Insomnia Continue home medication ropinirole 3mg PO dly Continue home medication trazodone 150 mg PO dly Depression Anxiety Continue home medication buspirone 15 mg PO dly Continue home medication duloxetine 30mg PO dly Lumbar stenosis with neurogenic claudication Facet arthritis of cervical region Patient follows up w/ outpt pain management. Continue home medication baclofen 15mg PO CODE STATUS: Full Code VTE prophylaxis: SCDs, home medication Eliquis 2.5 mg PO BID PDMP PDMP Reviewed: Not Reviewed Attestations 2 Medical Necessity Statement*: Patient will require less than 2 midnight stay for continued management of status post left total knee arthroplasty for PT/OT and medical management of comorbidities Coding Level of Care Code 33639 Diagnoses Status post total left knee replacement Z96.652 Laterality: left Benign prostatic hyperplasia, unspecified whether lower urinary tract symptoms present N40.0 Lower urinary tract symptom presence: unspecified whether lower urinary tract symptoms present Primary hypertension I10 Hypertension type: primary hypertension Hypercholesteremia E78.00
--- NOTE | 2025-06-11 12:46 | P.DS_ITS ---
Discharge Providers Date of Admission: 06/10/25 09:13 Date of Discharge: June 11, 2025 Attending Provider at Admission: Sheldon Caldera DO Attending Provider at Discharge: Sheldon Caldera DO Consults: Hospitalist Primary Care Provider: Ranjit Ness MD Diagnoses at Discharge Discharge Diagnosis 1. Status post total left knee replacement: 2. Benign prostatic hyperplasia, unspecified whether lower urinary tract symptoms present: 3. Primary hypertension: 4. Hypercholesteremia: Reason for Visit Reason for Visit: M17.12 Brief History: Status post left total knee arthroplasty?Arsen robotic assisted Hospital Course Hospital Course Patient presented to the preoperative holding area with plan for left total knee arthroplasty after patient has been worked up in the outpatient setting for failed conservative treatment of left knee degenerative joint disease. Once cleared by anesthesia for surgery patient subsequently was taken back to the operative suite underwent anesthesia per anesthesia department and then subsequently underwent a [left] total knee arthroplasty. Procedure was performed without any complications patient was taken to PACU in stable condition patient recovered well in PACU and then was admitted to the floor postoperatively internal medicine was consulted and on board for medical management and assistance with care. Patient received appropriate PT/OT, postoperative antibiotics, postoperative TXA, pain control, postoperative DVT prophylaxis. Elevation and ice. Patient encouraged for knee range of motion allowed weightbearing as tolerated to the operative lower extremity. Dressing was changed as needed, labs were monitored daily. Patient recovered well postoperatively and worked well and progressed well with therapy. It was determined on postoperative day [1] the patient was stable for discharge from an orthopedic standpoint and medicine. Patient was comfortable with discharge and plan was discharged home. Patient received appropriate discharge instructions as well as pain medication and DVT prophylaxis postoperatively. Given appropriate instructions for dressing management. Patient will follow-up with Dr. Caldera/orthopedics in the office in 2 weeks. All questions answered. Understand if there is any issues questions or concerns and contact the office. Physical Exam Narrative: Left knee examination: Dressing on in place, clean dry and intact. No evidence of saturation. Patient has normal postoperative swelling and tenderness to palpation to the knee. Compartments are soft compressible,'s calf soft and nontender. Sensations intact to light touch distally. Distal pulses are palpable. Patient is able to wiggle toes as well as plantarflex and dorsiflex ankle. Urinary Catheter Management: Rose Latex: Cath Placed During This Visit: yes, but has since been removed by the nurse Reason for Continuing Indwelling Catheter: Decision to DC Catheter Urinary Catheter Date of Insertion: 06/10/25 Urinary Catheter Time of Insertion: 07:33 Date Urinary Catheter Removed: 06/11/25 Time Urinary Catheter Discontinued: 05:01 Discharge Data Studies Completed and Pending Completed Studies During Hospitalization Category Date Time Status XR knee LT 3V* [id number] Routine Exams 06/10/25 09:08 Completed Pending at discharge Category Date Time Status Basic Metabolic Panel AM LABS Lab 06/12/25 04:00 Ordered Basic Metabolic Panel AM LABS Lab 06/13/25 04:00 Ordered Complete Blood Count w/Auto AM LABS Lab 06/12/25 04:00 Ordered Complete Blood Count w/Auto AM LABS Lab 06/13/25 04:00 Ordered Radiology Impressions Knee X-Ray 06/10/25 09:08 IMPRESSION: Recent total left knee arthroplasty without abnormality. Laboratory Results WBC 14.93 10^3/uL (3.29-11.43) H 06/11/25 04:20 RBC 4.22 10^6/uL (3.85-5.65) 06/11/25 04:20 Hgb 12.90 g/dL (11.27-16.99) 06/11/25 04:20 Hct 40.8 % (37-53) 06/11/25 04:20 MCV 96.7 fl (82-101) D 06/11/25 04:20 MCH 30.6 pg (27-33) 06/11/25 04:20 MCHC 31.6 g/dL (30-55) D 06/11/25 04:20 RDW 12.7 % (12.1-15.1) 06/11/25 04:20 Plt Count 189 10^3/cmm (157-399) 06/11/25 04:20 MPV 10.5 fL (7.4-10.4) H 06/11/25 04:20 Neut % (Auto) 85.3 % 06/11/25 04:20 Lymph % (Auto) 6.4 % 06/11/25 04:20 Sutton % (Auto) 7.6 % 06/11/25 04:20 Eos % (Auto) 0.1 % 06/11/25 04:20 Baso % (Auto) 0.2 % 06/11/25 04:20 Neut # (Auto) 12.75 10^3/uL (1.8-7.7) H 06/11/25 04:20 Lymph # (Auto) 1.0 10^3/uL (0.8-4.8) 06/11/25 04:20 Sutton # (Auto) 1.1 10^3/uL (0.2-0.9) H 06/11/25 04:20 Eos # (Auto) 0.0 10^3/uL (0.0-0.8) 06/11/25 04:20 Baso # (Auto) 0.0 10^3/uL (0.0-0.1) 06/11/25 04:20 Nucleated RBC % (auto) 0 % 06/11/25 04:20 Nucleated RBCs # 0.0 /100WBC 06/11/25 04:20 Sodium 141 mmol/L (136-145) 06/11/25 04:20 Potassium 4.0 mmol/L (3.5-5.1) 06/11/25 04:20 Chloride 106 mmol/L (98-107) 06/11/25 04:20 Carbon Dioxide 26 mmol/L (22-29) 06/11/25 04:20 Anion Gap 13.0 (5-19) 06/11/25 04:20 BUN 25 mg/dL (8-23) H 06/11/25 04:20 Creatinine 1.2 mg/dL (0.7-1.2) 06/11/25 04:20 GFR Calculation 60.2 mL/min (90-130) L 06/11/25 04:20 Glucose 123 mg/dL (65-115) H 06/11/25 04:20 Calculated Osmolality 298 mOsm/kg (285-295) H 06/11/25 04:20 Calcium 8.6 mg/dL (8.5-10.5) 06/11/25 04:20 Magnesium 2.3 mg/dL (1.7-2.3) 06/10/25 06:45 Triglycerides 69 mg/dL (0-150) 06/11/25 04:20 Cholesterol 130 mg/dL (0-200) 06/11/25 04:20 LDL Cholesterol, Calc 72 mg/dL (50-129) 06/11/25 04:20 HDL Cholesterol 44 mg/dL (60-100) L 06/11/25 04:20 LDL/HDL Ratio 1.64 RATIO (0.00-3.22) 06/11/25 04:20 Cholesterol/HDL Ratio 2.95 mg/dL (1.0-5.00) 06/11/25 04:20 Blood Type A Positive 06/10/25 06:45 Rho(D) Type Rh positive 06/10/25 06:45 Antibody Screen Negative 06/10/25 06:45 Vitals Last Vital Signs Temp 98.0 F 06/11/25 11:11 Pulse 67 06/11/25 11:11 Resp 18 06/11/25 12:08 BP 118/67 06/11/25 11:11 Pulse Ox 99 06/11/25 11:11 O2 Del Method Room Air 06/11/25 11:11 O2 Flow Rate 2 06/10/25 11:25 Discharge Plan Discharge Patient Disposition: Home Health Service Condition: Stable Prescriptions: New Eliquis 2.5 mg tablet 2.5 mg PO BID 14 Days Qty: 28 0RF cefadroxil 500 mg capsule 500 mg PO BID 7 Days Qty: 14 0RF oxycodone 5 mg tablet 5 mg PO Q6H PRN (Reason: pain postop) 7 Days Qty: 28 0RF calcium carbonate-vitamin D3 [Calcium 600 + D(3)] 600 mg-10 mcg (400 unit) tablet 1 tab PO DAILY 30 Days Qty: 30 0RF Continued trazodone 150 mg tablet 150 mg PO BEDTIME duloxetine 30 mg capsule,delayed release(DR/EC) 30 mg PO DAILY buspirone 15 mg tablet See Rx Instructions .ROUTE .COMPLEX Rx Instructions: Take 1 tablet by mouth in the morning and 1/2 tablet in the evening. (DME) left knee medial lawn sprinkler servicer brace See Rx Instructions .Route .MEDSUPPLY Qty: 1 0RF Rx Instructions: As directed (DME) Sole supports See Rx Instructions .Route .MEDSUPPLY Qty: 1 0RF Rx Instructions: As directed finasteride 5 mg tablet 5 mg PO DAILY Qty: 100 3RF (DME) ASO brace See Rx Instructions .Route .MEDSUPPLY Qty: 1 0RF Rx Instructions: As directed by Physical Therapy tamsulosin 0.4 mg capsule 0.4 mg PO DAILY hydrochlorothiazide 25 mg tablet 25 mg PO DAILY amlodipine 10 mg tablet 10 mg PO DAILY Qty: 90 3RF furosemide 40 mg tablet 40 mg PO DAILY Qty: 90 3RF valsartan 160 mg tablet 160 mg PO DAILY Qty: 90 3RF potassium chloride 20 mEq tablet extended release 20 meq PO DAILY Qty: 90 3RF baclofen 20 mg tablet 20 mg PO TID tramadol 50 mg tablet 50 mg PO PRN oxycodone-acetaminophen 5-325 mg tablet 0.5 - 1 tab PO .Q4-6H PRN (Reason: Pain) aspirin 81 mg Tablet,Delayed Release (Dr/Ec) 81 mg PO DAILY ropinirole 3 mg tablet 3 mg PO DAILY Interactive Media Marketing Director OK for DC: Orthopedics and Hospitalist Discharge Order = DC NOW: Discharge Order (Routine); Ordered 06/11/25 Ordered By: Sheldon Caldera Other Ambulatory Orders: DME: Walker (Order) Location: None Selected Ordered By: Sheldon Caldera Referrals: [facility] [Outside] [facility] [place] [Outside] Sheldon Caldera DO [Physician, Orthopedics] - 06/30/25 9:15 am Discharge Diet: Regular Discharge Activity: Limit activity as instructed and Use walker/crutches as inst ructed Patient Instructions: Cefadroxil (By mouth), Oxycodone, Slow Release (By mouth), Apixaban (By mouth), Acute Wound Care (DC), Total Knee Replacement (GEN), Opioid Safety, Post Anesthesia Care, Patient Portal & Curry Instructions Activity Restrictions/Additional Instructions: Orthopedic discharge instructions: Keep incisions clean dry and intact, leave Silverlon bandage dressings on in place for 7 days after that may rinse incisions with warm soapy water pat dry and redress with a dry dressing/new Silverlon dressing. This will then stay on until follow-up visit Patient may weight-bear as tolerate to the operative extremity Utilize walker as needed Encourage knee range of motion Ice and elevate as needed for pain and swelling Take pain medication as prescribed Take antinausea medication as needed Take antibiotic as prescribed for infection prevention Utilize home muscle relaxer(baclofen) for muscle spasms as needed Pain medication can cause constipation. take [id number] stool softeners and or MiraLAX. Take prescribed Eliquis twice daily for the next 14 days for blood clot prevention May supplement for pain with Tylenol [id number] as needed(1000 mg every 8 hours-do not exceed more than 3000mg in 24-hour period) No baths or soaks Follow-up in the orthopedic office in 2 weeks Contact the office for any questions or concerns Discharge Attestations Time Spent in Discharge Care*: less than 30 min Quality Metrics Clinical Quality Measures [ No reported AMI, CVA or VTE this stay] Coding Level of Care Code Acute Code for Chg Fwd Diagnoses Status post total left knee replacement Z96.652 Laterality: left Benign prostatic hyperplasia, unspecified whether lower urinary tract symptoms present N40.0 Lower urinary tract symptom presence: unspecified whether lower urinary tract symptoms present Primary hypertension I10 Hypertension type: primary hypertension Hypercholesteremia E78.00
== END 2025-06-11 14:17 | disposition home health service (06) ==
LOC: MEDSURG 09:14
PROVIDERS: Physician Assistant; Admitting Provider Student in an Organized Health Care Education/Training Program; PCP Family Medicine; Visit Provider Student in an Organized Health Care Education/Training Program
PROC: 8E0Y0CZ Robotic Assisted Procedure of Lower Extremity, Open Approach (ICD-10-PCS; CPT 27447; principal; 2025-06-10 07:00)
DX: M17.12 Unilateral primary osteoarthritis, left knee (principal); I10 Essential (primary) hypertension; Z90.09 Acquired absence of other part of head and neck; Z79.82 Long term (current) use of aspirin; Z79.891 Long term (current) use of opiate analgesic; E78.5 Hyperlipidemia, unspecified; E78.00 Pure hypercholesterolemia, unspecified; N40.0 Benign prostatic hyperplasia without lower urinary tract symptoms
CPT/HCPCS: 64447; 27447; 20985; 36415; 51702; 73562; 80048; 80061; 83735; 85025; 86850; 86900; 97116; 97161; 97165; 97530; A4216; C1713; C1776; G0378; J0131; J0169; J0690; J1100; J1171; J1885; J2405; J2704; J2795; J3475; J3490; J7120; J9999; L8699

== ENCOUNTER → 2025-06-30 08:52 | Outpatient (BNVA) | payer MEDICARE, SELFPAY | PROVIDERS: PCP Family Medicine; Visit Provider Physician Assistant | DX: Z96.652 Presence of left artificial knee joint (principal) | CPT/HCPCS: 73560; 73565 ==